=== PATIENT | male | born 1960 | race Caucasian/White ===

== ENCOUNTER 2025-03-19 14:05 | Outpatient (AMB) | payer OTHER, SELFPAY ==
--- NOTE | 2025-03-19 14:12 | A.PHYSOV ---
Vital Signs 03/19/25 14:18 Height 6 ft Weight 180 lb BMI 24.4 Intake Visit Reasons: MRI follow-up Intake Note: Patient is a 64 year old male here for his MRI follow up. 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 The patient has a history of anxiety disorder and claustrophobia, which has been managed for almost 25 years. The patient experienced a traumatic MRI experience due to claustrophobia, leading to panic attacks and bruising from attempting to escape the machine. The patient reports a disc bulge at L5-S1 causing compression of the left S1 nerve root, although the pain is predominantly on the right side. The patient describes the pain as stabbing, sometimes radiating to the testicles, and notes that physical therapy has exacerbated the symptoms. The patient also reports groin pain, which may be related to hip arthritis, as suggested by previous imaging showing some arthritis in the hip. The patient has been using a cane due to the severity of the pain and has experienced nausea associated with the pain. Patient has failed conservative treatment. It appears to me that most of his pain coming from his right hip joint. Pain Description - Onset: Pain has been ongoing, exacerbated by physical therapy. - Quality: Described as stabbing pain, sometimes radiating to the testicles. - Location: Right-sided leg pain and groin pain. - Exacerbating factors: Physical therapy worsens the pain. - Relieving factors: None mentioned. - Interference: Pain is debilitating, requiring the use of a cane and causing nausea. . [facility] Surgical History (Updated 03/19/25 @ 14:17 by Johanny Bonds MA) Deviated nasal septum (Unknown) Hx of tonsillectomy (Unknown) Social History Alcohol intake: current Alcohol intake frequency: does not drink Patient Tobacco Use Status: Never used Tobacco Use of substances other than those prescribed or required for medical reasons: No Current occupational status: employed Review of Systems Narrative Review of Systems - Musculoskeletal: Reports right-sided leg pain and groin pain. - Neurological: Reports stabbing pain radiating to the testicles. - Psychological: Reports anxiety and claustrophobia. - Gastrointestinal: Reports nausea associated with pain. Physical Exam Exam Exam: Physical Exam Lumbar Spine: Examination of his lumbar spine, there is no visible swelling or deformity. He has tenderness to the right lower lumbar facets. He is otherwise nontender. Full range of motion of lumbar spine. He does have an increase in pain with facet loading. Special Tests: Lhermittes sign was negative Heel Toe walk is normal Left straight leg raise: Negative Right straight leg raise: Negative Special tests Queenie test is negative Ganslen's test is negative SI Joint compression test negative Yue test negative Piriformis stretch is negative Lower Extremities: Full range of motion bilateral lower extremities. He does have an increase in pain with right hip mobility. No calf pain or edema. Neuro: Sensation: Intact to lower extremities bilaterally Strength L2 (Psoas): 5/5 on the left and 5/5 on the right. L3 (Quads): 5/5 on the left and 5/5 on the right. L4 (Ant tibialis): 5/5 on the left and 5/5 on the right. L5 (EHL) 5/5 on the left and 5/5 on the right. S1 (Gastroc): 5/5 on the left and 5/5 on the right. DTR L4: (Patellar) Left 2 Right 2 S1: (Achilles) Left 2 Right 2 Babinski Downgoing No pathologic clonus. No involuntary movement. Vital Signs: BMI result Body Mass Index 24.4 Assessment & Plan Assessment & Plan (1) Lumbar radiculopathy: Code(s): M54.16 - Radiculopathy, lumbar region Category: Medical (2) Lumbar spondylosis: Code(s): M47.816 - Spondylosis without myelopathy or radiculopathy, lumbar region Category: Medical (3) Osteoarthritis of right hip: Code(s): M16.11 - Unilateral primary osteoarthritis, right hip Category: Medical Plan Pain Management - Affect: Pain is causing significant distress and impacting psychological well-being. - Analgesia: Current pain management includes hydrocodone, but the patient reports issues with pharmacy filling prescriptions. - Adverse Effects: Nausea associated with pain. - Activities of Daily Living: Pain is debilitating, requiring the use of a cane. - Aberrant Drug Related Behaviors: None reported. Plan Patient was informed and verbally consented to the use of an ambient scribe for clinic note documentation during this visit. 1. Disc Bulge At L5-S1 The plan for the disc bulge at L5-S1 includes considering an epidural injection to decrease inflammation around the nerve root, which may alleviate the leg pain. Surgical intervention is not recommended as it would not address the right-sided leg pain. 2. Groin Pain The plan for groin pain involves considering an injection in the hip to determine if the pain is originating from the hip joint. This procedure would be both diagnostic and therapeutic, potentially confirming hip arthritis as the source of pain. Patient consents to intra-articular injection of the right hip with sedation which I will order today. He has failed conservative treatment. Patient reports only receiving half of the prescription given to him by his pharmacy for [place]. He does report that your medication was helpful. I will prescribe the [place] at this time. Patient will not operate any heavy machinery while taking the medication. Thank you for allowing me to participate in the care of your patient. Orders: Referrals Physiatry Procedure Notification M16.11 - Unilateral primary osteoarthritis, right hip Medications: New hydrocodone-acetaminophen 5-325 mg Partial Fill upon patient request. 1 tab PO Q6H PRN 28 tabs 0RF pain M16.11 - Unilateral primary osteoarthritis, right hip, M54.16 - Radiculopathy, lumbar region Coding Level of Care Code Tele New Pt Level 4 (41619) Diagnoses Lumbar radiculopathy M54.16 Lumbar spondylosis M47.816 Osteoarthritis of right hip M16.11
[2025-03-19 14:18] VITALS: BMI 24.4
--- OUTSIDE RECORDS SUMMARY | 2025-03-19 19:28 | XMS_ITS | Clinical Summary ---
Author Organization [facility] Address [facility] [employer] [facility] [address] [place] [id number] Phone Care Team Providers Care Mold Inspector Name Role Phone David Cisse MD Primary Care Provider [phone] Encounters Date Type Department Care Team Description 01/21/2025 Telephone [facility] [address] [place] [address] Unknown, Unknown, bridge visit from Last 3 Months Social History Tobacco Use Types Packs/Day Years Used Date Smoking Tobacco: Never Assessed Education Answer Date Recorded Are you interested in more education? Not on alaina e 08/26/2022 Are you concerned about learning? Not on file 08/26/2022 No 08/26/2022 No 08/26/2022 Digital Access Answer Date Recorded No 09/24/2022 No 09/24/2022 No 09/24/2022 Reliable internet access at home? Not on file 09/24/2022 Device with a working camera? Not on file Sex and Gender Information Value Date Recorded Sex Assigned at Not on file Legal Sex Male 4:58 PM EST Gender Identity Not on file Sexual Orientation Not on file Plan of Treatment Upcoming Encounters Date Type Department Care Team ([facility] st Contact Info) Description 09/11/2025 8:00 AM EDT Office Visit [facility] [address] [place] [address] Richard Manzanares MD [address] [facility], [address] [place] [address] [email or web address] Maintenance Due Date Last Done Comments LIPID PANEL 1961 DEPRESSION SCREENING 1973 SMOKING Hx and SMOKELESS TOBACCO SCREENING 1974 HEPATITIS C SCREENING 1979 HIV ONE-TIME SCREENING (18-65 YEARS) 1979 COLOGUARD 2006 FIT TEST 2006 FOBT 2006 SIGMOIDOSCOPY 2006 VIRTUAL COLONOSCOPY 2006 PNEUMOCOCCAL VACCINES (50+ years) (1 of 1 - PCV) 2011 Adult Td,Tdap Booster 07/29/2022 07/29/2012 INFLUENZA VACCINE (#1) 2024 , 12/13/2018, 12/21/2017, Additional history exists COVID-19 VACCINE ( season) 2024 08/13/2020, 07/23/2020 COLONOSCOPY 07/10/2028 07/10/2018 COLORECTAL CANCER SCREENING 07/10/2028 RSV VACCINE (1 - 1-dose 75+ series) 2036 ZOSTER VACCINES Completed 12/20/2017, 09/06/2017 HEPATITIS A VACCINES Aged Out No long er eligible based on patient's age to complete this topic HIB VACCINES Aged Out No longer eligi ble based on patient's age to complete this topic MENINGOCOCCAL VACCINES (ACWY) Aged Out No longer eligible based on patient's age to complete this topic MENINGOCOCCAL VACCINES (B) Aged Out N o longer eligible based on patient's age to complete this topic Medical Devices Not on file Procedures Procedure Name Priority Date/Time Associated Diagnosis Comments COLONOSCOPY FOR RESULT ENTRY ONLY Routine 07/10/2018 from Last 3 Months or Most Recently Relevant to Health Maintenance Results * COLONOSCOPY FOR RESULT ENTRY ONLY (07/10/2018) Colonoscopy External us Historical Provider HEALTH MAINTENANCE Final Result from Last 3 Months or Most Recently Relevant to Health Maintenance Insurance [address] [place], [place] [address] [place], [place] [address] [place] [address] [place] [address] [place] [address] [facility] [address] [place] [address] [place] [address] [facility] P[facility] [employer] Care Teams Mold Inspector Relationship Specialty Start Date End Date David Cisse MD [address] [place] [phone] PCP - General Internal Medicine 02/17/20 Additional Source Comments The information contained in this document represents components of the legal health record. It is not the complete legal health record.[facility]
--- OUTSIDE RECORDS SUMMARY | 2025-03-19 19:28 | XMS_ITS | Continuity of Care Document ---
Author Organization [facility], Main Office Address [address] [facility] [address] [place] [address] Care Team Providers Care Supervisor Rose Grading Name Role Phone GUME ESTRADA Material Damage Appraiser MARIANNE SHER Psychiatrist LUDWIN COLVIN Converter Operator GARY HERRERA Primary Care Provider [facility] Acoustic Intelligence Specialist LESLIE MCINTYRE Assistant Director Of Public Works [facility] Physical Therapist Assessment No assessment recorded. Plan of Treatment Reminders Order Date Submit Date Provider Last Modified By Organization Details Last Modified Time Details Appointments None recorded. Lab TSH + free T4, serum 2024 025 ALEXIS [facility] (Centralized Electronic Ordering - All Locations), Patient Can Go To The Location Of Their Choice, 10:06:16 thyroglobul in Ab, serum 2024 025 ALEXIS [facility] (Centralized Electronic Ordering - All Locations), Patient Can Go To The Location Of Their Choice, 10:06:17 PSA, serum or plasma 2024 025 ALEXIS [facility] (Centralized Electronic Ordering - All Locations), Patient Can Go To The Location Of Their Choice, 10:06:17 lipid panel, serum 2024 025 ALEXIS [facility], [address], [address], [place], [address], 5 08:07:54 CBC w/ auto diff 2024 025 ALEXIS [facility], [address], [address], [place], [address], 5 08:07:53 CMP, serum or plasma 2024 025 ALEXIS [facility], [address], [address], [place], [address], 5 08:07:53 Referral None recorded. Procedures None recorded. Surgeries None recorded. Imaging None recorded. Medication Orders None recorded. Patient TargetsNo targets recorded. Patient Instructions Encounter Date Encounter Id Patient Instructions Last Modified By Organization Details Last Modified Time 01/06/2025 [id number] Well Visit 50 to 65: Care Instructions [email or web address] Not available 01/06/2025 14:03:37 Reason for Referral None Reported. Results Created Date Observation Date Name Description Value Unit Range Abnormal Flag Note LastModifiedBy Organization Detail LastModifiedTime 01/07/2001/07/2025 CMP14 (REFL EX HGB A1C) glucose 96 mg/dL 70-99 normal Not Available [facility] ([facility]) [address] [place], [address], 01/07/2025 08:07:52 01/07/2001/07/2025 CMP14 (REFL EX HGB A1C) BUN 11 mg/dL 8-27 normal Not Available [facility] ([facility]) [address] [place], [address], 01/07/2025 08:07:52 01/07/2001/07/2025 CMP14 (REFL EX HGB A1C) creatinine 0.87 mg/dL 0.76-1 .27 normal Not Available [facility] ([facility]) [address] [place], [address], 01/07/2025 08:07:52 01/07/2001/07/2025 CMP14 (REFL EX HGB A1C) eGFR 97 mL/mi n/1.7 3 >59 normal Not Available [facility] ([facility]) [address] [place], [address], 01/07/2025 08:07:52 01/07/2001/07/2025 CMP14 (REFL EX HGB A1C) BUN/creatini ne ratio 13 10-24 normal Not Available [facility] ([facility] [address] [place], [address], 01/07/2025 08:07:52 01/07/2001/07/2025 CMP14 (REFL EX HGB A1C) sodium 141 mmol/ L 134-14 4 normal Not Available [facility] ([facility]) [address] [place], [address], 01/07/2025 08:07:52 01/07/2001/07/2025 CMP14 (REFL EX HGB A1C) potassium 4.6 mmol/ L 3.5-5. 2 normal Not Available [facility] ([facility] [address] [place], [address], 01/07/2025 08:07:52 01/07/2001/07/2025 CMP14 (REFL EX HGB A1C) chloride 101 mmol/ L 96-106 normal Not Available [facility] ([facility] [address] [place], [address], 01/07/2025 08:07:52 01/07/2001/07/2025 CMP14 (REFL EX HGB A1C) carbon dioxide, total 23 mmol/ L 20-29 normal Not Available [facility] ([facility] [address] [place], [address], 01/07/2025 08:07:52 01/07/2001/07/2025 CMP14 (REFL EX HGB A1C) calcium 9.5 mg/dL 8.6-10 .2 normal Not Available [facility] ([facility]) [address] [place], [address], 01/07/2025 08:07:52 01/07/2001/07/2025 CMP14 (REFL EX HGB A1C) protein, total 7.5 g/dL 6.0-8. 5 normal Not Available [facility] ([facility]) [address] [place], [address], 01/07/2025 08:07:52 01/07/2001/07/2025 CMP14 (REFL EX HGB A1C) albumin 4.6 g/dL 3.9-4. 9 normal Not Available [facility] ([facility] [address] [place], [address], 01/07/2025 08:07:52 01/07/2001/07/2025 CMP14 (REFL EX HGB A1C) globulin, total 2.9 g/dL 1.5-4. 5 Not Available [facility] ([facility] [address] [place], [address], 01/07/2025 08:07:52 01/07/2001/07/2025 CMP14 (REFL EX HGB A1C) bilirubin, total 0.6 mg/dL 0.0-1. 2 normal Not Available [facility] ([facility] [address] [place], [address], 01/07/2025 08:07:52 01/07/2001/07/2025 CMP14 (REFL EX HGB A1C) alkaline phosphatase 76 IU/L 44-121 normal Eff ectiv e Septe mber 2024 Alkal ine Phosp hatas e refer ence inter marvel will be frederick ing to: Age Male Femal e 0 - 5 days 47 - 127 47 - 127 6 - 10 days 29 - 242 29 - 242 11 - 20 days 109 - 357 109 - 357 21 - 30 days 94 - 494 94 - 494 1 - 2 month s 149 - 539 149 - 539 3 - 6 month s 131 - 452 131 - 452 7 - 11 month s 117 - 401 117 - 401 12 month s - 6 years 158 - 369 158 - 369 7 - 12 years 150 - 409 150 - 409 13 years 156 - 435 78 - 227 14 years 114 - 375 64 - 161 15 years 88 - 279 56 - 134 16 years 74 - 207 51 - 121 17 years 63 - 161 47 - 113 18 - 20 years 51 - 125 42 - 106 21 - 50 years 47 - 123 41 - 116 51 - 80 years 49 - 135 51 - 125 >80 years 48 - 129 48 - 129 Not Available [facility] ([facility]) [address] [place], [address], 01/07/2025 08:07:52 01/07/2001/07/2025 CMP14 (REFL EX HGB A1C) AST (SGOT) 18 IU/L 0-40 normal Not Available [facility] ([facility] [address] [place], [address], 01/07/2025 08:07:52 01/07/2001/07/2025 CMP14 (REFL EX HGB A1C) ALT (SGPT) 17 IU/L 0-44 normal Not Available [facility] ([facility] [address] [place], [address], 01/07/2025 08:07:52 01/07/2001/07/2025 CBC WITH DIFFE RENTI AL/PL ATELE T WBC 6.4 x10e3 /uL 3.4-10 .8 normal Not Available [facility] ([facility] [address] [place], [address], 01/07/2025 08:07:53 01/07/2001/07/2025 CBC WITH DIFFE RENTI AL/PL ATELE T RBC 4.83 x10e6 /uL 4.14-5 .80 normal Not Available [facility] ([facility] [address] [place], [address], 01/07/2025 08:07:53 01/07/2001/07/2025 CBC WITH DIFFE RENTI AL/PL ATELE T hemoglobin 14.9 g/dL 13.0-1 7.7 normal Not Available [facility] ([facility] [address] [place], [address], 01/07/2025 08:07:53 01/07/2001/07/2025 CBC WITH DIFFE RENTI AL/PL ATELE T hematocrit 44.7 % 37.5-5 1.0 normal Not Available [facility] ([facility] [address] [place], [address], 01/07/2025 08:07:53 01/07/2001/07/2025 CBC WITH DIFFE RENTI AL/PL ATELE T MCV 93 fL 79-97 normal Not Available [facility] ([facility] [address] [place], [address], 01/07/2025 08:07:53 01/07/2001/07/2025 CBC WITH DIFFE RENTI AL/PL ATELE T MCH 30.8 pg 26.6-3 3.0 normal Not Available [facility] ([facility] [address] [place], [address], 01/07/2025 08:07:53 01/07/2001/07/2025 CBC WITH DIFFE RENTI AL/PL ATELE T MCHC 33.3 g/dL 31.5-3 5.7 normal Not Available [facility] ([facility] [address] [place], [address], 01/07/2025 08:07:53 01/07/2001/07/2025 CBC WITH DIFFE RENTI AL/PL ATELE T RDW 13.1 % 11.6-1 5.4 Not Available [facility] ([facility] [address] [place], [address], 01/07/2025 08:07:53 01/07/20 25 01/07/2025 CBC WITH DIFFE RENTI AL/PL ATELE T platelets 239 x10e3 /uL 150-45 0 normal Not Available [facility] ([facility]) [address] [facility], [place], [address], 01/07/2025 08:07:53 01/07/2001/07/2025 CBC WITH DIFFE RENTI AL/PL ATELE T neutrophils 70 % not estab. normal Not Available [facility] ([facility]) [address] [facility], [place], [address], 01/07/2025 08:07:53 01/07/2001/07/2025 CBC WITH DIFFE RENTI AL/PL ATELE T lymphs 22 % not estab. normal Not Available [facility] ([facility]) [address] [facility], [place], [address], 01/07/2025 08:07:53 01/07/2001/07/2025 CBC WITH DIFFE RENTI AL/PL ATELE T monocytes 7 % not estab. normal Not Available [facility] ([facility]) [address] [facility], [place], [address], 01/07/2025 08:07:53 01/07/2001/07/2025 CBC WITH DIFFE RENTI AL/PL ATELE T eos 1 % not estab. normal Not Available [facility] ([facility]) [address] [facility], [place], [address], 01/07/2025 08:07:53 01/07/20 25 01/07/2025 CBC WITH DIFFE RENTI AL/PL ATELE T basos 0 % not estab. normal Not Available [facility] ([facility]) [address] [facility], [place], [address], 01/07/2025 08:07:53 01/07/20 25 01/07/2025 CBC WITH DIFFE RENTI AL/PL ATELE T immature cells SENIOR ELECTRICAL ESTIMATOR Not Available [facility] ([facility] [address] [place], [address], 01/07/2025 08:07:53 01/07/2001/07/2025 CBC WITH DIFFE RENTI AL/PL ATELE T neutrophils (absolute) 4.5 x10e3 /uL 1.4-7. 0 normal Not Available [facility] ([facility] [address] [place], [address], 01/07/2025 08:07:53 01/07/2001/07/2025 CBC WITH DIFFE RENTI AL/PL ATELE T lymphs (absolute) 1.4 x10e3 /uL 0.7-3. 1 normal Not Available [facility] ([facility] [address] [place], [address], 01/07/2025 08:07:53 01/07/2001/07/2025 CBC WITH DIFFE RENTI AL/PL ATELE T monocytes(ab solute) 0.5 x10e3 /uL 0.1-0. 9 normal Not Available [facility] ([facility] [address] [place], [address], 01/07/2025 08:07:53 01/07/2001/07/2025 CBC WITH DIFFE RENTI AL/PL ATELE T eos (absolute) 0.1 x10e3 /uL 0.0-0. 4 normal Not Available [facility] ([facility] [address] [place], [address], 01/07/2025 08:07:53 01/07/2001/07/2025 CBC WITH DIFFE RENTI AL/PL ATELE T baso (absolute) 0.0 x10e3 /uL 0.0-0. 2 normal Not Available [facility] ([facility] [address] [place], [address], 01/07/2025 08:07:53 01/07/20 25 01/07/2025 CBC WITH DIFFE RENTI AL/PL ATELE T immature granulocytes 0 % not estab. Not Available [facility] ([facility]) [address] [facility], [place], [address], 01/07/2025 08:07:53 01/07/20 25 01/07/2025 CBC WITH DIFFE RENTI AL/PL ATELE T immature grans (abs) 0.0 x10e3 /uL 0.0-0. 1 Not Available [facility] ([facility]) [address] [facility], [place], [address], 01/07/2025 08:07:53 01/07/20 25 01/07/2025 CBC WITH DIFFE RENTI AL/PL ATELE T NRBC SENIOR ELECTRICAL ESTIMATOR Not Available [facility] ([facility]) [address] [facility], [place], [address], 01/07/2025 08:07:53 01/07/2001/07/2025 CBC WITH DIFFE RENTI AL/PL ATELE T hematology comments: SENIOR ELECTRICAL ESTIMATOR Not Available [facility]) [address] [facility], [place], [address], 01/07/2025 08:07:53 01/07/20 25 01/07/2025 LIPID PANEL cholesterol, total 205 mg/dL 100-19 9 above high normal Not Available [facility] ([facility]) [address] [place], [address], 01/07/2025 08:07:54 01/07/20 25 01/07/2025 LIPID PANEL triglyceride s 101 mg/dL 0-149 normal Not Available [facility] [address] [place], [address], 01/07/2025 08:07:54 01/07/20 25 01/07/2025 LIPID PANEL HDL cholesterol 41 mg/dL >39 normal Not Available [facility] [address] [place], [address], 01/07/2025 08:07:54 01/07/2001/07/2025 LIPID PANEL VLDL cholesterol hayley 18 mg/dL 5-40 Not Available [facility] ([facility] [address] [place], [address], 01/07/2025 08:07:54 01/07/20 25 01/07/2025 LIPID PANEL LDL chol calc ([facility]) 146 mg/dL 0-99 above high normal Not Available [facility] ([facility] [address] [place], [address], 01/07/2025 08:07:54 01/07/20 25 01/07/2025 LIPID PANEL LDL calc comment: SENIOR ELECTRICAL ESTIMATOR Not Available [facility] [address] [place], [address], 01/07/2025 08:07:54 01/07/2001/07/2025 TSH+F REE T4 TSH 5.520 uIU/m L 0.450- 4.500 above high normal Not Available [facility] ([facility] [address] [place], [address], 01/07/2025 10:06:16 01/07/2001/07/2025 TSH+F REE T4 T4,free(dire ct) 1.01 NG/dL 0.82-1 .77 normal Not Available [facility] ([facility] [address] [place], [address], 01/07/2025 10:06:16 01/07/2001/06/2025 PSA TOTAL (REFL EX TO FREE) reflex criteria Commen t The perce nt free PSA is perfo rmed on a refle x basis only when the total PSA is betwe en 4.0 and 10.0 ng/mL . Not Available [facility] ([facility]) [address] [place], [address], 01/07/2025 10:06:17 01/07/2001/07/2025 PSA TOTAL (REFL EX TO FREE) prostate specific Ag 1.2 NG/mL 0.0-4. 0 normal Padmaja ECLIA metho dolog y. Accor ding to the Ameri can Urolo gical Assoc iatio n, Serum PSA shoul d decre ase and remai n at undet ectab le level s after radic al prost atect moisés. The AUA defin es bioch emica l recur rence as an initi al PSA value 0.2 ng/mL or great er follo wed by a subse quent confi rmato ry PSA value 0.2 ng/mL or great er. Value s obtai eunice with diffe rent assay metho ds or kits canno t be used inter frederick eably . Resul ts canno t be inter prete d as absol angel luis evide nce of the prese nce or absen ce of malig nant disea se. Not Available [facility] ([facility]) [address] [facility], [place], [address], 01/07/2025 10:06:17 01/07/2001/07/2025 THYRO GLOBU SUNDEEP ANTIB FINESSE thyroglobuli n antibody 55.3 IU/mL 0.0-0. 9 above high normal Thyro globu sundeep Antib finesse measu red by Beckm an Coult er Metho dolog y It shoul d be noted that the prese nce of thyro globu sundeep antib odies may not be patho genic nor diagn ostic , espec ially at very low level s. The assay manuf actur er has found that four perce nt of indiv idual s witho ut evide nce of thyro id disea se or autoi mmuni ty will have posit javier TgAb level s up to 4 IU/mL . Not Available [facility] ([facility]) [address] [facility], [place], [address], 01/07/2025 10:06:17 01/07/2001/08/2025 THYRO ID PEROX IDASE (TPO) AB thyroid peroxidase (tpo) Ab >600 IU/mL 0-34 above high normal Not Available [facility] ([facility]) [address] [facility], [place], [address], 01/08/2025 08:07:57 01/07/2001/07/2025 MUKUL EN AUTHO RIZAT ION written authorizatio n Dioni King en Autho rizat ion Recei jero. Autho rizat ion recei jero from [facility] MICHELLE HERRERA for Link Reque st on 01-07 Logge d by Roderick Bunch Not Available [facility] ([facility] [address] [facility], [place], [address], 01/08/2025 08:07:57 01/27/2001/25/2025 XR, hip, unila teral , 2 or 3 view AP and frog-l eg latera l view of the right hip dated 2024. No prior studie s are availa ble. Correl ation is made with a pelvis study from [facility] r 2021. HISTOR Y: Right hip pain. FINDIN GS: This examin ation shows no eviden ce of fractu re or disloc ation. There is some subcho ndral sclero sis in the hip joint. Minima l osteop hytes are noted as well. IMPRES BRAD: Mild degene rative change s. No eviden ce of fractu re or disloc ation. Examin ation [id number]. Thank you for allowi ng me to partic ipate in the care of this patien t. WSN: [id number] Orderi ng Physic portia: Jimmy Jordan Dictat ed By: Christian Rodriguez MD Dictat ed Date/T ivania: 4:40 pm Review ed By: Christian Rodriguez MD Signed By: Christian Rodriguez MD Signed Date/T ivania: 4:40 pm Transc ribed By: GORDY Transc ribed Date/T ivania: 4:40 pm Patien t Class: Outpat ient [facility] ([facility]) [address] [place], [address], 01/26/2025 19:11:52 01/27/20 25 01/25/2025 XR, lumba r spine Lumbos acral spine 3 views dated Sept2024. No prior studie s are availa ble. HISTOR Y: Pain. FINDIN GS: The verteb ral bodies are normal in height . Interv ertebr al disc spaces are fairly well-p reserv ed. Minima l endpla te osteop hytes are noted. IMPRES BRAD: Minima l degene rative change s. No eviden ce of fractu re or disloc ation. Examin ation [id number]. Thank you for mckenna portillo me to partic ipate in the care of this patien t. WSN: [id number] Orderi ng Physic portia: Jimmy Jordan Dictat ed By: Christian Rodriguez MD Dictat ed Date/T ivania: 4:41 pm Review ed By: Christian Rodriguez MD Signed By: Christian Rodriguez MD Signed Date/T ivania: 4:41 pm Transc ribed By: GORDY Transc ribed Date/T ivania: 4:41 pm Patien t Class: Outpat ient [facility] ([facility]) [address] [place], [address], 01/26/2025 19:11:52 Result Notes None recorded. Problems Name Problem SNOMED Code Status Onset Date Resolution Date Notes Provider Name and Address Organization Details Recorded Time Anxiety state 798396767 Active Not Available [facility] 2 12:56:36 Patient status finding 438060997 Completed 04/03/2016 [place] Velazquez [place] - [facility] 6 09:38:58 Congenit al insuffic iency of aortic valve 49616537 Active Not Available [facility] 2 12:56:36 Screenin g for malignan t neoplasm of colon Completed 04/03/2016 [place]WAK[place] Velazquez [facility] 6 09:39:07 Follow-u p encounte r Completed 04/03/2016 KWAK[place] Velazquez [facility] 6 09:39:11 Malaise and fatigue 941783385 Completed 04/03/2016 KWAK[place] Velazquez [facility] 6 09:39:04 Hyperlip idemia 18177935 Active Not Available [facility] 2 12:56:36 Irritabl e bowel syndrome 63366462 Completed 04/25/2023 Gary Herrera MD [address] [address], [place], [address] , [facility] 3 11:24:49 Major depressi on single episode, in partial remissio n 19789343 Active Not Available [facility] 2 12:56:36 Adult health examinat ion Completed 04/03/2016 KWAK[place] Velazquez [facility] 6 09:39:01 Administ ration of diphther ia and tetanus vaccine Completed 02/19/2017 KWAKU Velazquez[facility] 7 13:33:57 Low back pain 632046570 Completed 02/21/2022 Gary Herrera MD [address] [address], [place], [address] , [facility] 2 11:35:32 Tinea corporis 77469916 Completed 02/21/2022 Gary Herrera MD [address] [address], [place], [address] , [facility] 2 11:35:53 Lower abdomina l pain 93324154 Completed 02/19/2017 KWAKU Velazquez [facility] 7 13:33:48 Disorder of lumbar disc 724459891 Active Not Available [facility] 2 12:56:36 Tinnitus 18846708 Completed 04/03/2016 KWAKU Velazquez, [facility] 6 09:39:20 Cyst of epididym is 66239071 Completed 04/26/2018 David Cisse MD [address], [place], [address] , [facility] 8 11:47:37 Swallowi ng painful 36935788 Completed 04/03/2016 KWAKU Velazquez, [facility] 6 09:39:15 Fatigue 26649422 Completed 04/03/2016 KWAKU Velazquez, [facility] 6 09:39:25 Bilatera l trochant jon bursitis 90991619888 363731 Active KWAKU Velazquez, [facility] 5 14:07:34 Interver tebral disc prolapse 23098466 Active L5-S1 KWAKU Velazquez, [facility] 5 14:12:52 Anemia 912416843 Completed 201211/11/2013 RECORDED 06/19/19 13 9:14AM BY WASHINGTON BARNETT MA, ANNOTATI ON/ADDEN DUM Not Available [facility] 4 14:39:31 Anxiety state 589720108 Completed 201211/11/2013 IMPRESSI ON: FOLLOWED BY PSYCH; RECORDED 06/19/19 13 9:14AM BY WASHINGTON BARNETT MA, ANNOTATI ON/ADDEN DUM Not Available [facility] 4 14:39:31 Congenit al insuffic iency of aortic valve 16907313 Completed 201211/11/2013 RECORDED 06/19/19 13 9:14AM BY WASHINGTON BARNETT MA, ANNOTATI ON/ADDEN DUM Not Available [facility] 4 14:39:32 Pneumoni a 298772398 Completed 201211/11/2013 RECORDED 06/19/19 13 9:14AM BY WASHINGTON BARNETT MA, ANNOTATI ON/ADDEN DUM Not Available [facility] 4 14:39:32 Irritabl e bowel syndrome 56270609 Completed 201211/11/2013 RECORDED 06/19/19 13 9:14AM BY WASHINGTON BARNETT MA, ANNOTATI ON/ADDEN DUM Gary Herrera MD [address] [facility] [address], [place], [address] , [facility] 3 11:24:49 Lateral epicondy litis 610447474 Completed 201211/11/2013 RECORDED 06/19/19 13 9:14AM BY WASHINGTON BARNETT MA, ANNOTATI ON/ADDEN DUM Not Available [facility] 4 14:39:32 Adult health examinat ion Completed 201211/11/2013 RECORDED 06/19/19 13 9:14AM BY WASHINGTON BARNETT MA, ANNOTATI ON/ADDEN DUM Minerva porter [place] [facility] 6 09:39:01 Anemia 955318813 Completed 201212/04/2013 RECORDED 06/19/19 13 9:14AM BY WASHINGTON BARNETT MA, ANNOTATI ON/ADDEN DUM Not Available [facility] 4 12:53:34 Pneumoni a 425331292 Completed 201212/04/2013 RECORDED 06/19/19 13 9:14AM BY WASHINGTON BARNETT MA, ANNOTATI ON/ADDEN DUM Not Available [facility] 4 12:53:35 Lateral epicondy litis 315230834 Completed 201212/04/2013 RECORDED 06/19/19 13 9:14AM BY WASHINGTON BARNETT MA, ANNOTATI ON/ADDEN DUM Not Available [facility] 4 12:53:35 Anemia 505270800 Completed 201212/05/2013 RECORDED 06/19/19 13 9:14AM BY WASHINGTON BARNETT MA, ANNOTATI ON/ADDEN DUM Not Available [facility] 4 03:48:35 Pneumoni a 505793855 Completed 201212/05/2013 RECORDED 06/19/19 13 9:14AM BY WASHINGTON BARNETT MA, ANNOTATI ON/ADDEN DUM Not Available [facility] 4 03:48:35 Lateral epicondy litis 309445585 Completed 201212/05/2013 RECORDED 06/19/19 13 9:14AM BY WASHINGTON BARNETT MA, ANNOTATI ON/ADDEN DUM Not Available [facility] 4 03:48:35 Acute upper respirat ory infectio n 24511736 Completed 201211/11/2013 IMPRESSI ON: LUNGS CLEAR TODAY AND AFEBRILE , RECOMMEN D SUPPORTI VE TX, WILL CALL BACK FOR CXR IF NOT IMPROVIN G OR WORSENIN G.; RECORDED 07/30/19 13 12:56PM BY MINERVA GUERRERO MA, ANNOTATI ON/ADDEN DUM Not Available [facility] 4 14:39:33 Acute upper respirat ory infectio n 38838364 Completed 201212/04/2013 IMPRESSI ON: LUNGS CLEAR TODAY AND AFEBRILE , RECOMMEN D SUPPORTI VE TX, WILL CALL BACK FOR CXR IF NOT IMPROVIN G OR WORSENIN G.; RECORDED 07/30/19 13 12:56PM BY MINERVA GUERRERO MA, ANNOTATI ON/ADDEN DUM Not Available [facility] 4 12:53:35 Acute upper respirat ory infectio n 86868003 Completed 201212/05/2013 IMPRESSI ON: LUNGS CLEAR TODAY AND AFEBRILE , RECOMMEN D SUPPORTI VE TX, WILL CALL BACK FOR CXR IF NOT IMPROVIN G OR WORSENIN G.; RECORDED 07/30/19 13 12:56PM BY MINERVA GUERRERO MA, ANNOTATI ON/ADDEN DUM Not Available [facility] 08/08/201 4 03:48:35 Spinal stenosis of lumbosac ral region 619346804 Active 2013 MRI results KWAKU Velazquez, [facility] 5 14:12:25 Subclini hayley hypothyr oidism 28551848 Completed 201704/26/2023 Gary Herrera MD [address], [place], [address] , [facility] 3 22:00:43 Pain of left shoulder joint 97564478058 369862 Completed 201904/25/2023 Gary Herrera MD [address] [facility] [address], [place], [address] , [facility] 3 11:24:52 Decrease d range of shoulder movement 144955087 Active 2019 Not Available [facility] 2 12:56:36 Cervical radiculo kenia 52134992 Completed 202004/25/2023 Gary Herrera MD [address], [place], [address] , [facility] 3 11:23:11 Lichen planus of tongue 126156270 Active 2021 tongue biopsy 09/2021 Not Available [facility] 2 12:56:36 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 97935698590 9105 Active 2021 Alicia patel, [facility] 2 13:26:36 Environm ental allergy 020917089 Active 2022 Rebel Jordan PA-C [address], [place], [address] , [facility] 3 11:51:39 History of actinic keratosi s 36334576414 04 Active 2022 Gary Herrera MD [address], [place], [address] , [facility] 3 22:03:25 Chronic low back pain 923715805 Active 2023 Girish Herrera MD [address] [facility] [address], [place], [address] , [facility] 4 09:14:03 Osteoart hritis of right hip joint 62278144201 9107 Active 2023 [facility] [address] [facility] [address], [place], [address] , [facility] 4 09:51:59 Problem Notes None recorded. Procedures Surgical History Date Name Laterality Status Provider Name and Address Organization Details Recorded Time 05/10/19 23 excision of benign lesion of trunk completed Minerva calderon [facility] 07/03/2022 09:19:53 07/11/19 19 Colonoscopy completed Chinyere Chavez [facility] 07/10/2018 15:39:14 07/07/19 18 Chronic Pain Assessment completed [facility] 07/06/2017 11:45:57 12/23/19 17 Chronic Pain Assessment completed [facility] 12/22/2016 09:36:59 08/18/19 17 Chronic Pain Assessment completed [facility] 08/17/2016 13:37:09 08/12/19 16 Echo Transthoracic completed [facility] 08/14/2015 10:38:23 04/30/18 92 Repair nasal septum defect completed [facility] 06/07/2015 13:33:55 04/30/18 68 Tonsillectomy completed [facility] 09/13/2020 13:06:03 Imaging Results None recorded. Procedure Notes None recorded. Medical Equipment None Reported. Allergies Allergen ID Allergen Name Allergen Category Reaction Reaction Severity Criticality Documentation Date Start Date Code Code System Note Provider Name and Address Organization Details Recorded Time 00164 tramadol medicatio n other Not available Not available 06/16/20142022 16220 RxNorm unabl e to urmanju martinez [facility] 3 09:13:38 2812 Shellfish (substanc e) food,medi cation other respirato ry distress Not available Not available [facility] 11/11/20131994 96669 9006 SNOMED [facility] 3 09:15:13 65399 duloxetin e medicatio n other Not available Not available 01/17/20212022 27914 RxNorm [facility] 3 09:12:46 Medications Name Sig Start Date Stop Date Status Note LastModified by Organization Details LastModified Time methocarb gabriella 500 mg tablet TAKE 2 TABLETS BY MOUTH EVERY 6 HOURS NEEDED FOR 10 DAYS. 01/28 completed Not Available Not Available Not Available buspirone 5 mg tablet Take 1 tablet every day by oral route for 30 days. 04/25 completed take with 10 mg tablet Not Available Not Available Not Available clonidine HCl 0.1 mg tablet TAKE 1 TABLET BY MOUTH TWICE A DAY NEEDED FOR ANXIETY 10/04 completed Not Available Not Available Not Available trazodone 50 mg tablet TAKE 1 TO 2 TABLETS BY MOUTH AT BEDTIME NEEDED FOR SLEEP 05/25 completed Not Available Not Available Not Available hydrocodo ne 5 mg-acetam inophen 325 mg tablet Take 1 tablet every 6 hours by oral route as needed for 15 days. 02/19 completed Not Available Not Available Not Available prednison e 20 mg tablet TAKE 2 TABLETS BY MOUTH EVERY DAY FOR 5 DAYS, FOR RIGHT LOW BACK PAIN. *TAKE WITH FOOD* 01/06 completed Not Available Not Available Not Available hydrocodo ne 10 mg-acetam inophen 325 mg tablet TAKE 1 TABLET BY MOUTH 4 TIMES A DAY FOR 7 DAYS. 01/17 completed Not Available Not Available Not Available tramadol 50 mg tablet Take 1 tablet 4 times a day by oral route as needed for pain for 30 days. 2013 active Not Available Not Available Not Avai lable bupropion HCl SR 100 mg tablet,12 hr sustained -release 02/21 completed Not Available Not Available Not Available lamotrigi ne 25 mg tablet TAKE 2 TABLETS BY MOUTH EVERY DAY 03/17 completed Not Available Not Available Not Available propranol ol 10 mg tablet TAKE 1 TO 2 TABLETS BY MOUTH 2 TIMES A DAY FOR PHYSICAL ANXIETY 01/06 completed Not Available Not Available Not Available lorazepam 0.5 mg tablet PLEASE SEE ATTACHED FOR DETAILED DIRECTIO NS active Not Available Not Available No t Available lorazepam 2 mg tablet TAKE 2 TABLETS BY MOUTH EVERYDAY AT BEDTIME. MAX TOTAL DAILY DOSE OF 6MG OF LORAZEPA M active Not Available Not Available No t Available diazepam 2 mg tablet TAKE 1 TO 2 TABLETS BY MOUTH EVERY DAY NEEDED 02/14 completed Not Available Not Available Not Available cephalexi n 500 mg capsule TAKE 1 CAPSULE BY MOUTH EVERY 8 HOURS FOR 5 DAYS 07/03 completed Not Available Not Available Not Available nortripty line 10 mg capsule 04/26 completed Not Available Not Available Not Available buspirone 30 mg tablet TAKE 1 TABLET BY MOUTH DAILY. active Not Available Not Available No t Available buspirone 10 mg tablet TAKE 1 TABLET BY MOUTH EVERY DAY WITH 15MG TAB active Not Available Not Available No t Available prednison e 50 mg tablet Take 1 tablet every day by oral route for 5 days. 04/03 completed Not Available Not Available Not Available Lorazepam Intensol 2 mg/mL oral concentra te TAKE 1ML BY MOUTH DAILY, DECREASE BY 0.1ML BIWEEKLY TOLERATE D 04/25 completed Not Available Not Available Not Available gabapenti n 300 mg capsule TAKE 1 CAPSULE IN THE MORNING AND 2 CAPSULES AT BEDTIME 02/14 completed Not Available Not Available Not Available sertralin e 25 mg tablet TAKE 1 AND 1/2 TABLETS BY MOUTH DAILY 02/21 completed Not Available Not Available Not Available omeprazol e 20 mg capsule,d elayed release Take 1 capsule every day by oral route. 12/06 completed Not Available Not Available Not Available hydroxyzi ne HCl 25 mg tablet PLEASE SEE ATTACHED FOR DETAILED DIRECTIO NS 02/01 completed Not Available Not Available Not Available gabapenti n 100 mg capsule TAKE 1-2 CAPSULES BY MOUTH NEEDED 1-2 TIMES PER DAY FOR SEVERE ANXIETY 02/14 completed Not Available Not Available Not Available Diazepam Intensol 5 mg/mL oral concentra te TAKE 1.4ML BY MOUTH (7MG) AT BEDTIME. 02/14 completed Not Available Not Available Not Available lorazepam 1 mg tablet TAKE 1/2 TO 1 TAB NEEDED 2 TIMES DAILY FOR ANXIETY. AWARE OF 4MG BEDTIME. DOSE INCREASE 09/11/24 active Not Available Not Available No t Available diazepam 10 mg tablet TAKE 1-2 TABLETS BY MOUTH AT BEDTIME. STOP BEDTIME ATIVAN. 01/06 completed Not Available Not Available Not Available epinephri ne 0.3 mg/0.3 mL injection , auto-inje ctor INJECT 1 SYRINGE (0.3 MG TOTAL) INTO THE OUTER THIGH MUSCLE DIRECTED NEEDED FOR ANAPHYLA XIS. active Not Available Not Available No t Available levofloxa ruth 500 mg tablet DAILY 07/14 completed RECORDED 07/26/19 12 1:22PM BY GUME VOSS PA-C, MEDICATI ON AUTO-MANJU CTIVATIO N; Not Available Not Available Not Available methylpre dnisolone 4 mg tablets in a dose pack TAKE 6 TABLETS ON DAY 1 DIRECTED ON PACKAGE AND DECREASE BY 1 TAB EACH DAY FOR A TOTAL OF 6 DAYS active Not Available Not Available No t Available clotrimaz ole 1 % topical cream APPLY TO THE AFFECTED AND SURROUND ING AREAS OF SKIN BY TOPICAL ROUTE 2 TIMES PER DAY IN THE MORNING AND EVENING 2013 active Not Available Not Available Not Avai lable sertralin e 50 mg tablet TAKE 1 TABLET BY MOUTH EVERY DAY active Not Available Not Available No t Available loratadin e 10 mg tablet TAKE 1 TABLET BY MOUTH ONCE A DAY 04/25 completed Not Available Not Available Not Available buspirone 15 mg tablet TAKE 1 TABLET BY MOUTH EVERY DAY WITH 10MG 01/06 completed Not Available Not Available Not Available escitalop floridalma 5 mg/5 mL oral solution TAKE 4 ML BY MOUTH ONCE A DAY 02/21 completed Not Available Not Available Not Available rosuvasta tin 10 mg tablet TAKE 1 TABLET BY MOUTH EVERYDAY AT BEDTIME active Not Available Not Available No t Available bupropion HCl XL 150 mg 24 hr tablet, extended release 02/21 completed Not Available Not Available Not Available escitalop floridalma 5 mg tablet TAKE 1 TABLET BY MOUTH EVERY DAY 02/21 completed Not Available Not Available Not Available mirtazapi ne 7.5 mg tablet TAKE 1 TABLET BY MOUTH AT BEDTIME 01/17 completed Not Available Not Available Not Available duloxetin e 20 mg capsule,d elayed release TAKE 1 CAPSULE BY MOUTH EVERY DAY 02/21 completed Not Available Not Available Not Available Guiatuss AT BEDTIME 06/26 completed RECORDED 07/30/19 13 12:56PM BY GUME VOSS PA-C, MEDICATI ON AUTO-MANJU CTIVATIO N; Not Available Not Available Not Available sodium fluoride 1.1 %-potassi um nitrate 5 % dental paste USE PEA SIZE AMOUNT 1-2 TIMES A DAY.WAIT 30MINS BEFORE EATING/D RINKING 02/14 completed Not Available Not Available Not Available ProAir HFA 90 mcg/actua tion aerosol inhaler Inhale 2 puffs every 4 hours by inhalati on route as needed. 09/07 completed Not Available Not Available Not Available aripipraz ole 2 mg tablet TAKE 1 TABLET BY MOUTH EVERY DAY 02/21 completed Not Available Not Available Not Available cholecalc iferol (vitamin D3) 50 mcg (2,000 unit) capsule TAKE 1 CAPSULE BY MOUTH EVERY DAY 01/06 completed Not Available Not Available Not Available Shingrix (PF) 50 mcg/0.5 mL intramusc ular suspensio n, kit 04/26 completed Not Available Not Available Not Available Fluzone Quad (P F) 60 mcg(15 mcgx4)/0. 5 mL intramusc ular syringe 04/26 completed Not Available Not Available Not Available Afluria Qd 2018- (36 mos up)(PF)60 mcg (15 mcg x4)/0.5 mL IM syringe 08/12 completed Not Available Not Available Not Available Fluzone Quad (PF) 60 mcg (15 mcg x 4)/0.5 mL IM syringe TO BE ADMINIST ERED BY PHARMACI ST FOR IMMUNIZA TION 06/07 completed Not Available Not Available Not Available Vitals Date Recorded Body height Body mass index (BMI) Body weight Heart rate Oxygen saturation Body temperature Systolic And Diastolic Provider Name and Address Organization Details Last Updated DateTime 5 183.01 cm 24.9 kg/m2 35061 g 90 /min 98 % 98.2 [degF] 107/63 mm[Hg] [facility] 5 13:38:53 Social History Question Answer Notes LastModified by Organizat ion Details LastModified Time Tobacco Smoking Status [facility] 13:05:45 Do You Have An Advance Directive? Yes [email or web address] Information not available 03/17/2022 Is Blood Transfusion Acceptable In An Emergency? Yes Information not available 07/27/2015 What Is Your Level Of Caffeine Consumption? Occasional Decaf Coffee Information not available 01/17/2021 How Much Tobacco Do You Chew? None Information not available 06/07/2015 What Type Of Diet Are You Following? REGULAR Information not available 06/07/2015 Which Illicit Or Recreational Drugs Have You Used? None Information not available 06/07/2015 When Did You Quit Smoking? 16+yearssince [email or web address] Information not available 09/13/2020 Live Alone Or With Others? With Others (Robert) And Obgddh-vt-hd w, Brother Brant And Brinater [email or web address] Information not available 04/25/2023 Do You Take Precautions To Prevent Distracted Driving? Yes Information not available 07/27/2015 How Often Do You Need To Have Someone Help You When You Read Instructions, Pamphlets, Or Other Written Material From Your Doctor Or Pharmacy? Never Information not available 06/07/2015 Have You Served In The ? No Information not available 04/03/2016 Have You Or Anyone In Your Household Had Any Of The Following Symptoms In The Last 14 Days: Sore Throat, Cough, Chills, Body Aches For Unknown Reasons, Shortness Of Breath For Unknown Reasons, Loss Of Smell, Loss Of Taste, Fever At Or Greater Than 100 Degrees Fahrenheit? No [email or web address] Information not available 11/24/2019 Are You Or Anyone In Your Household A Health Care Provider Or Emergency Responder? No [email or web address] Information not available 11/24/2019 To The Best Of Your Knowledge Have You Been In Close Proximity To Any Individual Who Tested Positive For COVID-19? No [email or web address] Information not available 11/24/2019 Have You Recently Traveled To A COVID-19 High Risk Area Or Gathering In The Last 10 Days? No [email or web address] Information not available 09/13/2020 What Was The Date Of Your Most Recent Tobacco Screening? 01/06/2025 Information not available 01/06/2025 How Many Children Do You Have? 3 Son And 2 Daughters Information not available 06/07/2015 What Is Your Current Pack Years? 10packyears [email or web address] Information not available 03/17/2022 Do You Use Protection During Sex? Always [email or web address] Information not available 09/13/2020 Do You Use Your Seat Belt Or Car Seat Routinely? Yes Information not available 02/21/2022 Seat Belts Used Routinely Yes [email or web address] Information not available 03/17/2022 Are You Sexually Active? Yes Information not available 06/07/2015 Smoke Alarm In Home Yes [email or web address] Information not available 03/17/2022 Do You Have Smoke And Carbon Monoxide Detectors In Your Home? Yes Information not available 02/21/2022 At What Age Did You Start Smoking Tobacco? 19 [email or web address] Information not available 09/13/2020 Are You Passively Exposed To Smoke? No Information not available 06/07/2015 How Much Tobacco Do You Smoke? 1 PPW Information not available 02/21/2022 Do You Use Sunscreen Routinely? Yes [email or web address] Information not available 09/13/2020 How Many Years Have You Smoked Tobacco? 1 Information not available 02/21/2022 Sex: Unknown Functional Status Question Answer Note LastModified by Organizat ion Details LastModified Time Do you use any illicit or recreational drugs? No [email or web address] Information not available 03/17/2022 Do you or have you ever used any other forms of tobacco or nicotine? No [email or web address] Information not available 03/17/2022 What is your level of alcohol consumption? None Information not available 06/07/2015 Do you or have you ever used smokeless tobacco? Never used smokeless tobacco Information not available 08/13/2019 Are you currently employed? Yes Information not available 06/07/2015 Are you able to walk independently without assistance or assistive devices? YESWOREST [email or web address] Information not available 03/17/2022 Are you able to care for yourself independently? 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 Never used electronic cigarettes [email or web address] Information not available 03/17/2022 What is your exercise level? None afraid to return to the gym Information not available 02/21/2022 Mental Status None recorded. Family History Relationship Description Onset Age of this Age Resolved Age Notes LastModified by Organization Details LastModified Time Mother Hypercholest stephenia phelmuth Not available 2015 15:09:41 Father Essential hypertension 84 [email or web address] Not available 11:31:49 Father Chronic deafness [email or web address] Not available 03/17 11:31:49 Father Hypercholest erderekia phelmuth Not available 2015 15:09:41 Father Carcinoma in situ of skin [email or web address] Not available 11:31:49 Sister Essential hypertension [email or web address] Not available 11:31:49 Sister Hypothyroidi sm [email or web address] Not available 03/17 11:31:49 Sister Asthma phelmuth Not available 0 12/07/2015 15:09:41 Sister Hypercholest erderekia phelmuth Not available 2015 15:09:41 Daughter Obsessive-co mpulsive disorder 14 [email or web address] Not available 03/17 11:31:49 Daughter Depressive disorder 14 [email or web address] s Not available 01/17/2021 11:30:36 Medical History Condition Response Anxiety Disorder Y Heart Problems Y Arthritis Y Depression Y Allergies Y Chicken Pox Y Acne Y Immunizations Vaccine Type Date Status Note Provider Nam e and Address Organization Details Recorded Time Influenza, split virus, trivalent, preservative 7 completed Not Available [facility] 05/25/2023 08:37:50 Influenza, adjuvanted, trivalent, PF 8 completed Not Available [facility] 05/25/2023 08:37:50 varicella 8 completed Not Available [facility] 01/22/2023 10:46:03 Influenza, split virus, trivalent, preservative 9 completed Not Available [facility] 05/25/2023 08:37:50 Influenza, split virus, trivalent, preservative 0 completed Not Available [facility] 01/22/2023 10:46:03 COVID-19, mRNA, LNP-S, PF, 30 mcg/0.3 mL dose 1 completed Not Available [facility] 01/22/2023 10:46:03 COVID-19, mRNA, LNP-S, PF, 30 mcg/0.3 mL dose 1 completed Not Available [facility] 01/22/2023 10:46:03 COVID-19, mRNA, LNP-S, bivalent, PF, 30 mcg/0.3 mL dose 2 completed Not Available [facility] 01/22/2023 10:46:03 Influenza, MDCK, quadrivalent, PF 1 completed Not Available [facility] 01/22/2023 10:46:03 Influenza, split virus, quadrivalent, PF 8 completed Not Available [facility] 01/22/2023 10:46:04 Influenza, MDCK, quadrivalent, PF 2 completed Not Available [facility] 01/22/2023 10:46:03 Influenza, split virus, quadrivalent, PF 9 completed Not Available [facility] 01/22/2023 10:46:04 zoster recombinant 8 completed Not Available [facility] 01/22/2023 10:46:03 Influenza, MDCK, quadrivalent, PF 7 completed Not Available [facility] 01/22/2023 10:46:03 zoster recombinant 8 completed Not Available [facility] 01/22/2023 10:46:03 Influenza, split virus, trivalent, preservative 1 completed Not Available [facility] 01/22/2023 10:46:04 COVID-19, mRNA, LNP-S, PF, 30 mcg/0.3 mL dose, olivier-sucrose 2 completed Not Available [facility] 01/22/2023 10:46:03 COVID-19, mRNA, LNP-S, PF, 30 mcg/0.3 mL dose 1 completed Not Available [facility] 01/22/2023 10:46:03 Influenza, split virus, quadrivalent, PF 5 completed Not Available [facility] 01/22/2023 10:46:04 Influenza, split virus, trivalent, preservative 4 completed Not Available [facility] 01/22/2023 10:46:03 RSV, recombinant, protein subunit RSVpreF, adjuvant reconstituted, 0.5 mL, PF 3 completed [facility] 04/25/2023 10:40:19 Influenza, MDCK, quadrivalent, PF 3 completed [facility] 04/25/2023 10:54:18 COVID-19, mRNA, LNP-S, PF, olivier-sucrose, 30 mcg/0.3 mL 3 completed [facility] 04/25/2023 10:54:18 COVID-19, mRNA, LNP-S, PF, olivier-sucrose, 30 mcg/0.3 mL 4 completed KWAKU [facility] 02/15/2024 09:35:55 Influenza, split virus, trivalent, PF 4 completed [facility]WAKU [facility] 02/15/2024 09:35:55 Pneumococcal conjugate PCV20, polysaccharide [id number] conjugate, adjuvant, PF 4 completed Not Available [facility] 01/28/2025 13:13:42 COVID-19, mRNA, LNP-S, PF, olivier-sucrose, 30 mcg/0.3 mL 5 completed Not Available [facility] 01/28/2025 13:13:42 Influenza, split virus, trivalent, preservative 9 completed Not Available [facility] 01/22/2023 10:46:04 Influenza, split virus, trivalent, preservative 2 completed Not Available [facility] 01/22/2023 10:46:04 Tdap 3 completed Not Available [facility] 01/22/2023 10:46:03 Influenza, split virus, trivalent, PF 5 completed [facility] 01/28/2025 13:28:55 Past Encounters Encounter ID Performer Location Encounter Start Date Encounter Closed Date Diagnosis/Indication Diagnosis SNOMED-CT Code Diagnosis ICD10 Code Diagnosis IMO Codes Diagnosis Note [id number] Gary Herrera MD Main Office [address] [facility] [address] [facility] [place] [id number] 01/06/2025 13:14:19 01/06/2025 14:54:13 Adult health examination 915543327 Z00.00 Patient was counseled on healthy diet, exercise and nutrition due to Body mass index is 24.9 kg/m . Last PSADate: 02/21/22Re sult: 1Plan: wants to screen order placed. Last Colonoscop y:Date: 07/10/18Res ult: no polypsPlan : Per GI screen 10 yrs Vaccines:T dAP: script givenZoste r rec: 09/06/17, 12/20/17PCV 20: 04/26/24In fluenza: yearly flu encouraged Covid: 01/02/25RSV: 01/20/23 Routine labs today Immunizati on status reviewed. Will screen based on risk factors. Regular dental and ophtho care advised as well as seat belt and sunscreen use. Distracted driving discussed. Medication reconciled . 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 Follows Psych for mental Girish Bueno MD Fatigue 79364067 R53.83 R73.01 Hyperlipidemia 91697748 E78.5 Administra tion of viral vaccine 17774022 Z23 Nocturia 101444774 R35.1 [address] [facility] [address] hypothyroidism 19865584 E03.8 39051 Health Concerns Section Related Observation LastModified by Organization Detai ls LastModified Time None Recorded Concern Status LastModified by Organization Details LastModified Time None Recorded Payers Encounter Date Sequence Insurance Name Policy Number Policy Gomez Covered Member ID Gomez Member ID Guarantor Name 01/06/2025 1 [facility] [id number] Robert Yanes [id number] Robert Yanes Notes Date Note Type Note Provider Name and Address Organization Details Recorded Time 01/06/2025 text/html Generic HPI TemplateReported by PatientROS as noted in the HPI Patient presented for a physical exam. Chronic medications and medical issues, including a bicuspid aortic valve and palpitations, were reviewed. Discussed screening guidelines, fitness, and weight management goals. Gary Herrera MD [address] [address], [place], [address], [facility] 01/21/2025 11:23:06
--- OUTSIDE RECORDS SUMMARY | 2025-03-19 19:28 | XMS_ITS | Encounter Summary ---
Author Organization [facility] Address [address] [place] [address] Care Team Providers Care Criminal Justice Professor Name Role Phone Gary Smith Primary Care Provider [phone] Reason for Visit * Reason Onset Date Comments Earle/Allergy injection 12/28/2022 Encounter Details Date Type Department Care Team (Late st Contact Info) Description 12/28/2022 Telephone [facility] [address] [place] [id number] Telephone Intake, Staff Earle/Allergy injection Social History Tobacco Use Types Packs/Day Years Used Date Smoking Tobacco: Never Assessed Sex and Gender Information Value Date Recorded Sex Assigned at Male 01/15/2023 9:03 AM EDT Legal Sex Male 5:13 PM EDT Gender Identity Male 01/15/2023 9:03 AM EDT Sexual Orientation Straight 01/15/2023 9: 03 AM EDT documented as of this encounter Miscellaneous Notes * Telephone Encounter - Christiano Allen - 12/28/2022 10:05 AM EDT Pt calling stating that he has an appointment for allergy testing on 01/22/23. Pt would like to know if he has to get allergy injections would his who is a Board Certified Nurse could give him the weekly allergy shots as he lives an hour away. Pt also would like to know if provider would know where in his area he could get the allergy injections if his is not allowed to give him the shots. Pt would like a call back to discuss. Pt can be reached at [phone]. PAC Med A documented in this encounter Plan of Treatment Not on file documented as of this encounter Visit Diagnoses Not on filedocumented in this encounter Care Teams Criminal Justice Professor Relationship Specialty Start Date End Date Gary Smith [address] [address] PCP - General Family Medicine 12/21/22 documented as of this encounter
--- OUTSIDE RECORDS SUMMARY | 2025-03-19 19:28 | XMS_ITS | Clinical Summary ---
Author Organization [facility] Address [address] [place] [address] Care Team Providers Care Ent Surgeon Name Role Phone Gary Smith Primary Care Provider [phone] Allergies Active Allergy Reactions Criticality Noted Date Comments Duloxetine Other (see comments) 01/22/2023 Shellfish Containing Products Other (see comments),Respiratory Distress High 01/15/1995 Tramadol Other (see comments) 01/22/2023 Medications busPIRone (BUSPAR) 10 mg tablet TAKE 1 TABLET BY MOUTH AROUND LUNCH AND 1/2 TABLET AT BEDTIME Active LORazepam (ATIVAN) 0.5 mg tablet SMARTSI.5- 1 Tablet(s) By Mouth Daily 07/20/2022 Active lamoTRIgine (LaMICtal) 25 mg tablet SMARTSI Tablet(s) By Mouth Daily 02/23/2022 Active sertraline (ZOLOFT) 50 mg tablet Take 1 tablet by mouth once a day. 01/16/2004 Active EPINEPHrine (EPIPEN) 0.3 mg/0.3 mL injection syringe Inject 1 Syringe (0.3 mg total) into the outer thigh muscle as directed as needed for anaphylaxis. 2 each 2 01/22/2023 Active loratadine (CLARITIN) 10 mg tablet Take 1 tablet (10 mg total) by mouth once a day. 30 tablet 11 01/22/2023 Active Active Problems Problem Noted Date Diagnosed Date Cyst of epididymis 01/22/2023 Disorder of intervertebral disc of lumbar spine 01/22/2023 Fatigue 01/22/2023 Hyperlipidemia 01/22/2023 Low back pain 01/22/2023 Lower abdominal pain 01/22/2023 Major depression single episode, in partial ryne ssion 01/22/2023 Malaise and fatigue 01/22/2023 Swallowing painful 01/22/2023 Tinea corporis 01/22/2023 Perennial allergic rhinitis 01/22/2023 Assessment & Plan (01/22/2023 10:40 AM EDT): Positive skin testing to both indoor and outdoor allergens. We discussed the risks, benefits, logistics of allergen immunotherapy and he signed informed consent at today's visit. I do recommend that he have a daily long-acting, second- generation antihistamine on board through the first 6-month buildup phase. I also think this would provide benefit in the home. I do not believe he needs to continue to wear an N95 mask in the home. He should instead just minimize contact with dog if possible, not bring the dog up to his face and certainly wash his hands after he has interacted with the dog. Osteoarthritis of both hips 03/08/2022 Lichen planus of tongue 10/14/2021 Overview (01/22/2023): tongue biopsy 09/2021 Cervical radiculopathy 09/13/2020 Decreased range of motion of shoulder 11/24/2019 Pain in joint of left shoulder 11/24/2019 Subclinical hypothyroidism 04/26/2018 Acute upper respiratory infection 07/29/2012 Overview (01/22/2023): IMPRESSION: LUNGS CLEAR TODAY AND AFEBRILE, RECOMMEND SUPPORTIVE TX, WILL CALL BACK FOR CXR IF NOT IMPROVING OR WORSENING.; RECORDED 07/29/2012 12:56PM BY HERSON FULLER MA, ANNOTATION/ADDENDUM Anemia 06/19/2012 Overview (01/22/2023): RECORDED 06/19/2012 9:14AM BY WASHINGTON BARNETT MA, ANNOTATION/ADDENDUM Congenital insufficiency of aortic valve 013 Overview (01/22/2023): RECORDED 06/19/2012 9:14AM BY WASHINGTON BARNETT MA, ANNOTATION/ADDENDUM Irritable bowel syndrome 06/19/2012 Overview (01/22/2023): RECORDED 06/19/2012 9:14AM BY WASHINGTON BARNETT MA, ANNOTATION/ADDENDUM Lateral epicondylitis 06/19/2012 Overview (01/22/2023): RECORDED 06/19/2012 9:14AM BY WASHINGTON BARNETT MA, ANNOTATION/ADDENDUM Pneumonia 06/19/2012 Overview (01/22/2023): RECORDED 06/19/2012 9:14AM BY WASHINGTON BARNETT MA, ANNOTATION/ADDENDUM Anxiety 01/15/1995 Overview (01/22/2023): IMPRESSION: FOLLOWED BY PSYCH; RECORDED 06/19/2012 9:14AM BY WASHINGTON BARNETT MA, ANNOTATION/ADDENDUM Social History Tobacco Use Types Packs/Day Years Used Date Smoking Tobacco: Never Assessed Sex and Gender Information Value Date Recorded Sex Assigned at Male 01/15/2023 9:03 AM EDT Legal Sex Male 5:13 PM EDT Gender Identity Male 01/15/2023 9:03 AM EDT Sexual Orientation Straight 01/15/2023 9: 03 AM EDT Last Filed Vital Signs Vital Sign Reading Time Taken Comments Blood Pressure 124/76 01/22/2023 8:24 AM EDT Pulse 97 01/22/2023 8:24 AM EDT Temperature - - Respiratory Rate 20 01/22/2023 8:24 AM EDT Oxygen Saturation 98% 01/22/2023 8:24 AM EDT Inhaled Oxygen Concentration - - Weight 89.6 kg (197 lb 9.6 oz) 01/22/2023 8:24 A M EDT Height - - Body Mass Index - - Plan of Treatment Health Maintenance Due Date Last Done Comments Cologuard 1961 Colon Cancer Screening 1961 Colonoscopy 1961 FOBT / Fit Test 1961 HIV Screening 1961 Hepatitis C Screening 1961 Sigmoidoscopy 1961 Pneumococcal Vaccine: 50+ Years (1 of 1 - PCV) 2011 DTaP,Tdap,and Td Vaccines (2 - Td or Tdap) 07/29/2022 07/29/2012 Alcohol/Substance Use Screening 04/30/2024 Depression Screening and Follow-Up 04/30/2024 Social Drivers of Health Annual Screening 04/30/2024 Influenza Vaccine (#1) 2024 , 02/02/2022, 01/17/2021, Additional history exists COVID-19 Vaccine (2024- season) 2024 02/01/2023, 01/06/2022, 07/31/2021, Additional history exists Zoster Vaccines Completed 12/20/2017, 11/29, 09/06/2017 RSV Vaccine (60+ years old and patients) Completed 01/23/2023 Hepatitis B Vaccines Aged Out No long er eligible based on patient's age to complete this topic Insurance HNE Care Teams Ent Surgeon Relationship Specialty Start Date End Date Gary Smith [id number] [facility] [address] [place] [address] PCP - General Family Medicine 12/21/22
--- OUTSIDE RECORDS SUMMARY | 2025-03-19 19:29 | XMS_ITS | Continuity of Care Document ---
Author Organization [facility], Main Office Address [address] [place] [address] Care Team Providers Care Art Model Name Role Phone GUME ESTRADA Press Tool Maker MARIANNE SHER Psychiatrist [phone] LUDWIN COLVIN Traffic Control Operator GARY HERRERA Primary Care Provider [facility] Raw Mill Operator [phone] LESLIE MCINTYRE Rounding Machine Operator [facility] Physical Therapist Assessment No assessment recorded. Plan of Treatment Reminders Order Date Submit Date Provider Last Modified By Organization Details Last Modified Time Details Appointments None recorde d. Lab None recorde d. Referral physica l medicin e and rehabil itation referra l - please eval for R hip and LBP - thanks! 2024 025 joe Elise MD, [address] [facility] [address], [place], [address], 08:48:53 Procedures None recorde d. Surgeries None recorde d. Imaging XR, lumbar spine [address] [facility], [address] [place], [address], 5 16:44:37 XR, hip, unilate ral, 2 or 3 view [address] [facility], [address] [place], [address], 16:43:47 Medication Orders None recorde d. Patient TargetsNo targets recorded. Patient Instructions Encounter Date Encounter Id Patient Instructions Last Modified By Organization Details Last Modified Time 01/22/2025 [id number] Follow up if no improvement or if symptoms worsen. [email or web address] Not available 01/22/2025 13:24:16 Reason for Referral Physical Medicine And Rehabi litation Referral for Pain of hip region please eval for R hip and LBP - thanks! Referring Physician: Rebel Jordan, Internal Medicine, Encounter Date: 01/22/2025 Results Created Date Observation Date Name Description Value Unit Range Abnormal Flag Note LastModifiedBy Organization Detail LastModifiedTime 01/07/2001/07/2025 CMP14 (REFL EX HGB A1C) glucose 96 mg/dL 70-99 normal Not Available [facility] ([facility]) [address] [place], [address], 01/07/2025 08:07:52 01/07/2001/07/2025 CMP14 (REFL EX HGB A1C) BUN 11 mg/dL 8-27 normal Not Available [facility] ([facility]) [address] [place], [address], 01/07/2025 08:07:52 01/07/2001/07/2025 CMP14 (REFL EX HGB A1C) creatinine 0.87 mg/dL 0.76-1 .27 normal Not Available [facility] ([facility]) [address] [place], [address], 01/07/2025 08:07:52 01/07/2001/07/2025 CMP14 (REFL EX HGB A1C) eGFR 97 mL/mi n/1.7 3 >59 normal Not Available [facility] ([facility]) [address] [place], [address], 01/07/2025 08:07:52 09/09/20 25 01/07/2025 CMP14 (REFL EX HGB A1C) BUN/creatini ne ratio 13 10-24 normal Not Available [facility] ([facility]) [address] [place], [address], 01/07/2025 08:07:52 01/07/2001/07/2025 CMP14 (REFL EX HGB A1C) sodium 141 mmol/ L 134-14 4 normal Not Available [facility] ([facility]) [address] [place], [address], 01/07/2025 08:07:52 01/07/2001/07/2025 CMP14 (REFL EX HGB A1C) potassium 4.6 mmol/ L 3.5-5. 2 normal Not Available [facility] ([facility]) [address] [place], [address], 01/07/2025 08:07:52 01/07/2001/07/2025 CMP14 (REFL EX HGB A1C) chloride 101 mmol/ L 96-106 normal Not Available [facility] ([facility]) [address] [place], [address], 01/07/2025 08:07:52 01/07/2001/07/2025 CMP14 (REFL EX HGB A1C) carbon dioxide, total 23 mmol/ L 20-29 normal Not Available [facility] ([facility]) [address] [place], [address], 01/07/2025 08:07:52 01/07/2001/07/2025 CMP14 (REFL EX HGB A1C) calcium 9.5 mg/dL 8.6-10 .2 normal Not Available [facility] ([facility]) [address] [place], [address], 01/07/2025 08:07:52 01/07/20 25 01/07/2025 CMP14 (REFL EX HGB A1C) protein, total 7.5 g/dL 6.0-8. 5 normal Not Available [facility] ([facility]) [address] [place], [address], 01/07/2025 08:07:52 01/07/2001/07/2025 CMP14 (REFL EX HGB A1C) albumin 4.6 g/dL 3.9-4. 9 normal Not Available [facility] ([facility]) [address] [place], [address], 01/07/2025 08:07:52 01/07/2001/07/2025 CMP14 (REFL EX HGB A1C) globulin, total 2.9 g/dL 1.5-4. 5 Not Available [facility] ([facility]) [address] [place], [address], 01/07/2025 08:07:52 01/07/2001/07/2025 CMP14 (REFL EX HGB A1C) bilirubin, total 0.6 mg/dL 0.0-1. 2 normal Not Available [facility] ([facility]) [address] [place], [address], 01/07/2025 08:07:52 01/07/2001/07/2025 CMP14 (REFL EX HGB A1C) alkaline phosphatase 76 IU/L 44-121 normal Eff ectiv e Septe mb 2024 Alkal ine Phosp hatas e refer [...] 129 48 - 129 Not Available [facility] ([facility]) [address] [facility] [place], [address], 01/07/2025 08:07:52 01/07/2001/07/2025 CMP14 (REFL EX HGB A1C) AST (SGOT) 18 IU/L 0-40 normal Not Available [facility] ([facility]) [address] [facility] [place], [address], 01/07/2025 08:07:52 01/07/2001/07/2025 CMP14 (REFL EX HGB A1C) ALT (SGPT) 17 IU/L 0-44 normal Not Available [facility] ([facility]) [address] [place], [address], 01/07/2025 08:07:52 01/07/2001/07/2025 CBC WITH DIFFE RENTI AL/PL ATELE T WBC 6.4 x10e3 /uL 3.4-10 .8 normal Not Available [facility] ([facility]) [address] [place], [address], 01/07/2025 08:07:53 01/07/2001/07/2025 CBC WITH DIFFE RENTI AL/PL ATELE T RBC 4.83 x10e6 /uL 4.14-5 .80 normal Not Available [facility] ([facility]) [address] [place], [address], 01/07/2025 08:07:53 01/07/2001/07/2025 CBC WITH DIFFE RENTI AL/PL ATELE T hemoglobin 14.9 g/dL 13.0-1 7.7 normal Not Available [facility] ([facility]) [address] [place], [address], 01/07/2025 08:07:53 01/07/2001/07/2025 CBC WITH DIFFE RENTI AL/PL ATELE T hematocrit 44.7 % 37.5-5 1.0 normal Not Available [facility] ([facility]) [address] [place], [address], 01/07/2025 08:07:53 01/07/2001/07/2025 CBC WITH DIFFE RENTI AL/PL ATELE T MCV 93 fL 79-97 normal Not Available [facility] ([facility]) [address] [place], [address], 01/07/2025 08:07:53 01/07/2001/07/2025 CBC WITH DIFFE RENTI AL/PL ATELE T MCH 30.8 pg 26.6-3 3.0 normal Not Available [facility] ([facility]) [address] [place], [address], 01/07/2025 08:07:53 01/07/2001/07/2025 CBC WITH DIFFE RENTI AL/PL ATELE T MCHC 33.3 g/dL 31.5-3 5.7 normal Not Available [facility] ([facility]) [address] [place], [address], 01/07/2025 08:07:53 01/07/2001/07/2025 CBC WITH DIFFE RENTI AL/PL ATELE T RDW 13.1 % 11.6-1 5.4 Not Available [facility] ([facility]) [address] [place], [address], 01/07/2025 08:07:53 01/07/2001/07/2025 CBC WITH DIFFE RENTI AL/PL ATELE T platelets 239 x10e3 /uL 150-45 0 normal Not Available [facility] ([facility]) [address] [place], [address], 01/07/2025 08:07:53 01/07/2001/07/2025 CBC WITH DIFFE RENTI AL/PL ATELE T neutrophils 70 % not estab. normal Not Available [facility] ([facility]) [address] [facility], [place], [address], 01/07/2025 08:07:53 01/07/20 25 01/07/2025 CBC WITH DIFFE RENTI AL/PL ATELE T lymphs 22 % not estab. normal Not Available [facility] ([facility]) [address] [facility], [place], [address], 01/07/2025 08:07:53 01/07/2001/07/2025 CBC WITH DIFFE RENTI AL/PL ATELE T monocytes 7 % not estab. normal Not Available [facility] ([facility]) [address] [facility], [place], [address], 01/07/2025 08:07:53 01/07/2001/07/2025 CBC WITH DIFFE RENTI AL/PL ATELE T eos 1 % not estab. normal Not Available [facility] ([facility]) [address] [facility], [place], [address], 01/07/2025 08:07:53 01/07/2001/07/2025 CBC WITH DIFFE RENTI AL/PL ATELE T basos 0 % not estab. normal Not Available [facility] ([facility]) [address] [facility], [place], [address], 01/07/2025 08:07:53 01/07/2001/07/2025 CBC WITH DIFFE RENTI AL/PL ATELE T immature cells CATALYST OPERATOR GASOLINE Not Available [facility] ([facility]) [address] [facility], [place], [address], 01/07/2025 08:07:53 01/07/20 25 01/07/2025 CBC WITH DIFFE RENTI AL/PL ATELE T neutrophils (absolute) 4.5 x10e3 /uL 1.4-7. 0 normal Not Available [facility] ([facility]) [address] [facility], [place], [address], 01/07/2025 08:07:53 01/07/2001/07/2025 CBC WITH DIFFE RENTI AL/PL ATELE T lymphs (absolute) 1.4 x10e3 /uL 0.7-3. 1 normal Not Available [facility] ([facility]) [address] [facility], [place], [address], 01/07/2025 08:07:53 01/07/2001/07/2025 CBC WITH DIFFE RENTI AL/PL ATELE T monocytes(ab solute) 0.5 x10e3 /uL 0.1-0. 9 normal Not Available [facility] ([facility]) [address] [facility], [place], [address], 01/07/2025 08:07:53 01/07/2001/07/2025 CBC WITH DIFFE RENTI AL/PL ATELE T eos (absolute) 0.1 x10e3 /uL 0.0-0. 4 normal Not Available [facility] ([facility]) [address] [facility], [place], [address], 01/07/2025 08:07:53 01/07/2001/07/2025 CBC WITH DIFFE RENTI AL/PL ATELE T baso (absolute) 0.0 x10e3 /uL 0.0-0. 2 normal Not Available [facility] ([facility]) [address] [facility], [place], [address], 01/07/2025 08:07:53 01/07/2001/07/2025 CBC WITH DIFFE RENTI AL/PL ATELE T immature granulocytes 0 % not estab. Not Available [facility] ([facility]) [address] [facility], [place], [address], 01/07/2025 08:07:53 01/07/2001/0701/07/2025 CBC WITH DIFFE RENTI AL/PL ATELE T immature grans (abs) 0.0 x10e3 /uL 0.0-0. 1 Not Available [facility] ([facility]) [address] [facility], [place], [address], 01/07/2025 08:07:53 01/07/20 25 01/07/2025 CBC WITH DIFFE RENTI AL/PL ATELE T NRBC CATALYST OPERATOR GASOLINE Not Available [facility] ([facility]) [address] [facility], [place], [address], 01/07/2025 08:07:53 01/07/2001/07/2025 CBC WITH DIFFE RENTI AL/PL ATELE T hematology comments: CATALYST OPERATOR GASOLINE Not Available [facility] ([facility]) [address] [facility], [place], [address], 01/07/2025 08:07:53 01/07/20 25 01/07/2025 LIPID PANEL cholesterol, total 205 mg/dL 100-19 9 above high normal Not Available [facility] ([facility]) [address] [place], [address], 01/07/2025 08:07:54 01/07/2001/07/2025 LIPID PANEL triglyceride s 101 mg/dL 0-149 normal Not Available [facility] ([facility]) [address] [place], [address], 01/07/2025 08:07:54 01/07/2001/07/2025 LIPID PANEL HDL cholesterol 41 mg/dL >39 normal Not Available [facility] ([facility]) [address] [place], [address], 01/07/2025 08:07:54 01/07/20 25 01/07/2025 LIPID PANEL VLDL cholesterol hayley 18 mg/dL 5-40 Not Available [facility] ([facility]) [address] [place], [address], 01/07/2025 08:07:54 01/07/2001/07/2025 LIPID PANEL LDL chol calc ([facility]) 146 mg/dL 0-99 above high normal Not Available [facility] ([facility]) [address] [place], [address], 01/07/2025 08:07:54 01/07/2001/07/2025 LIPID PANEL LDL calc comment: CATALYST OPERATOR GASOLINE Not Available [facility] ([facility]) [address] [place], [address], 01/07/2025 08:07:54 01/07/2001/07/2025 TSH+F REE T4 TSH 5.520 uIU/m L 0.450- 4.500 above high normal Not Available [facility] ([facility]) [address] [place], [address], 01/07/2025 10:06:16 01/07/2001/07/2025 TSH+F REE T4 T4,free(dire ct) 1.01 NG/dL 0.82-1 .77 normal Not Available [facility] ([facility]) [address] [place], [address], 01/07/2025 10:06:16 01/07/2001/06/2025 PSA TOTAL (REFL EX TO FREE) reflex criteria Commen t The perce nt free PSA is perfo rmed on a refle x basis only when the total PSA is betwe en 4.0 and 10.0 ng/mL . Not Available [facility] ([facility]) [address] [place], [address], 01/07/2025 10:06:17 01/07/2001/07/2025 PSA TOTAL (REFL EX [...] t be inter prete d as absol ak chin evide nce of the prese nce or absen ce of malig nant disea se. Not Available [facility] ([facility]) [address] [facility], [place], [address], 01/07/2025 10:06:17 01/07/2001/07/2025 THYRO GLOBU SUNDEEP ANTIB [...] to 4 IU/mL . Not Available [facility] ([facility]) [address] [facility], [place], [address], 01/07/2025 10:06:17 01/07/2001/08/2025 THYRO ID PEROX IDASE (TPO) AB thyroid peroxidase (tpo) Ab >600 IU/mL 0-34 above high normal Not Available [facility] ([facility]) [address] [facility], [place], [address], 01/08/2025 08:07:57 01/07/2001/07/2025 WRITT EN AUTHO RIZAT ION written authorizatio n Dioni castañeda Christine en Autho rizat ion Recei jero. Autho rizat ion recei jero from [facility] MICHELLE HERRERA for Link Panchito franks on 01-07 Logge d by Roderick Bunch Not Available [facility] ([facility]) [address] [facility], [place], [address], 01/08/2025 08:07:57 01/27/2001/25/2025 XR, hip, unila teral , 2 or 3 view AP and frog-l eg latera l view of the right hip dated 2024. No prior studie s are availa ble. Correl ation is made with a pelvis study from 2021. HISTOR Y: Right hip pain. FINDIN GS: This examin ation shows no eviden ce of fractu re or disloc ation. There is some subcho ndral sclero sis in the hip joint. Minima l osteop hytes are noted as well. IMPRES BRAD: Mild degene rative change s. No eviden ce of fractu re or disloc ation. Examin ation [id number]. Thank you for allowi ng me to partic ipate in the care of this patien t. WSN: [id number] Orderi ng Physic portia: Jimmy Jordan Dictat ed By: Christian Rodriguez MD Dictat ed Date/T ivania: 4:40 pm Review ed By: Christian Rodriguez MD Signed By: Christian Rodriguez MD Signed Date/T ivania: 4:40 pm Transc ribed By: GORDY Transc ribed Date/T ivania: 4:40 pm Patien t Class: [facility]pat ient [facility] ([facility]) [address] [facility], [place], [address], 01/26/2025 19:11:52 01/27/20 25 01/25/2025 XR, lumba r spine Lumbos acral spine 3 views dated 2024. No prior studie s are availa ble. HISTOR Y: Pain. FINDIN GS: The verteb ral bodies are normal in height . Interv ertebr al disc spaces are fairly well-p reserv ed. Minima l endpla te osteop hytes are noted. IMPRES BRAD: Minima l degene rative change s. No eviden ce of fractu re or disloc ation. Examin ation [id number]. Thank you for allowi bandar me to partic ipate in the care of this patien t. WSN: [id number] Orderi ng Physic portia: Jimmy Jordan Dictat ed By: Christian Rodriguez MD Dictat ed Date/T ivania: 4:41 pm Review ed By: Christian Rodriguez MD Signed By: Christian Rodriguez MD Signed Date/T ivania: 4:41 pm Transc ribed By: GORDY Transc ribed Date/T ivania: 4:41 pm Patien t Class: Outpat [facility] ([facility]) [address] [place] [address], [address], 01/26/2025 19:11:52 Result Notes None recorded. Problems Name Problem SNOMED Code Status Onset Date Resolution Date Notes Provider Name and Address Organization Details Recorded Time Anxiety state 652285971 Active Not Available [facility] 2 12:56:36 Patient status finding 259798559 Completed 04/03/2016 KWAKU Velazquez [facility] 6 09:38:58 Congenit al insuffic iency of aortic valve 41409939 Active Not Available [facility] 2 12:56:36 Screenin g for malignan t neoplasm of colon Completed 04/03/2016 KWAKU Velazquez [facility] 6 09:39:07 Follow-u p encounte r Completed 04/03/2016 KWAKU Velazquez [facility] 6 09:39:11 Malaise and fatigue 445007543 Completed 04/03/2016 WKAKU Velazquez, [facility] 6 09:39:04 Hyperlip idemia 88695058 Active Not Available [facility] 2 12:56:36 Irritabl e bowel syndrome 42039523 Completed 04/25/2023 Gary Herrera MD [address], [place], [address] , [facility] 11:24:49 Major depressi on single episode, in partial remissio n 35451167 Active Not Available [facility] 2 12:56:36 Adult health examinat ion Completed 04/03/2016 KWAKU Velazquez, [facility] 6 09:39:01 Administ ration of diphther ia and tetanus vaccine Completed 02/19/2017 KWAKU Velazquez, [facility] 7 13:33:57 Low back pain 564412305 Completed 02/21/2022 Gary Herrera MD [address], [place], [address] , [facility] 2 11:35:32 Tinea corporis 91866769 Completed 02/21/2022 Gary Herrera MD [address], [place], [address] , [facility] 2 11:35:53 Lower abdomina l pain 74483955 Completed 02/19/2017 KWAKU Velazquez, [facility] 7 13:33:48 Disorder of lumbar disc 294750315 Active Not Available [facility] 2 12:56:36 Tinnitus 85890351 Completed 04/03/2016 KWAKU Velazquez, [facility] 6 09:39:20 Cyst of epididym is 86749338 Completed 04/26/2018 David Cisse MD [address] [facility] [address], [place], [address] , [facility] 8 11:47:37 Swallowi ng painful 81124905 Completed 04/03/2016 Minerva porter [place] null, [facility] 6 09:39:15 Fatigue 74922498 Completed 04/03/2016 Minerva porter [place] null, [facility] 6 09:39:25 Bilatera l trochant jon bursitis [id number] 243649 Active Minerva porter [place] null, [facility] 5 14:07:34 Interver tebral disc prolapse 97032940 Active L5-S1 Minerva porter [place] null, [facility] 5 14:12:52 Anemia 427539142 Completed 201211/11/2013 RECORDED 06/19/19 13 9:14AM BY WASHINGTON BARNETT MA, ANNOTATI ON/ADDEN DUM Not Available [facility] 4 14:39:31 Anxiety state 585323435 Completed 201211/11/2013 IMPRESSI ON: FOLLOWED BY PSYCH; RECORDED 06/19/19 13 9:14AM BY WASHINGTON BARNETT MA, ANNOTATI ON/ADDEN DUM Not Available [facility] 4 14:39:31 Congenit al insuffic iency of aortic valve 52696626 Completed 201211/11/2013 RECORDED 06/19/19 13 9:14AM BY WASHINGTON BARNETT MA, ANNOTATI ON/ADDEN DUM Not Available [facility] 4 14:39:32 Pneumoni a 706380932 Completed 201211/11/2013 RECORDED 06/19/19 13 9:14AM BY WASHINGTON BARNETT MA, ANNOTATI ON/ADDEN DUM Not Available [facility] 4 14:39:32 Irritabl e bowel syndrome 98065069 Completed 201211/11/2013 RECORDED 06/19/19 13 9:14AM BY WASHINGTON BARNETT MA, ANNOTATI ON/ADDEN DUM Gary Herrera MD [address] [facility] [address], [facility] [place], [address] , [facility] 3 11:24:49 Lateral epicondy litis 407462159 Completed 201211/11/2013 RECORDED 06/19/19 13 9:14AM BY WASHINGTON BARNETT MA, ANNOTATI ON/ADDEN DUM Not Available [facility] 4 14:39:32 Adult health examinat ion Completed 201211/11/2013 RECORDED 06/19/19 13 9:14AM BY WASHINGTON BARNETT MA, ANNOTATI ON/ADDEN DUM KWAKU Velazquez, [facility] 6 09:39:01 Anemia 902356954 Completed 201212/04/2013 RECORDED 06/19/19 13 9:14AM BY WASHINGTON BARNETT MA, ANNOTATI ON/ADDEN DUM Not Available [facility] 4 12:53:34 Pneumoni a 395132991 Completed 201212/04/2013 RECORDED 06/19/19 13 9:14AM BY WASHINGTON BARNETT MA, ANNOTATI ON/ADDEN DUM Not Available [facility] 4 12:53:35 Lateral epicondy litis 969665373 Completed 201212/04/2013 RECORDED 06/19/19 13 9:14AM BY WASHINGTON BARNETT MA, ANNOTATI ON/ADDEN DUM Not Available [facility] 4 12:53:35 Anemia 308474355 Completed 201212/05/2013 RECORDED 06/19/19 13 9:14AM BY WASHINGTON BARNETT MA, ANNOTATI ON/ADDEN DUM Not Available [facility] 4 03:48:35 Pneumoni a 502326030 Completed 201212/05/2013 RECORDED 06/19/19 13 9:14AM BY WASHINGTON BARNETT MA, ANNOTATI ON/ADDEN DUM Not Available [facility] 4 03:48:35 Lateral epicondy litis 149031168 Completed 201212/05/2013 RECORDED 06/19/19 13 9:14AM BY WASHINGTON BARNETT MA, ANNOTATI ON/ADDEN DUM Not Available [facility] 4 03:48:35 Acute upper respirat ory infectio n 05828688 Completed 201211/11/2013 IMPRESSI ON: LUNGS CLEAR TODAY AND AFEBRILE , RECOMMEN D SUPPORTI VE TX, WILL CALL BACK FOR CXR IF NOT IMPROVIN G OR WORSENIN G.; RECORDED 07/30/19 13 12:56PM BY MINERVA GUERRERO MA, ANNOTATI ON/ADDEN DUM Not Available [facility] 4 14:39:33 Acute upper respirat ory infectio n 31256047 Completed 201212/04/2013 IMPRESSI ON: LUNGS CLEAR TODAY AND AFEBRILE , RECOMMEN D SUPPORTI VE TX, WILL CALL BACK FOR CXR IF NOT IMPROVIN G OR WORSENIN G.; RECORDED 07/30/19 13 12:56PM BY MINERVA GUERRERO MA, ANNOTATI ON/ADDEN DUM Not Available [facility] 4 12:53:35 Acute upper respirat ory infectio n 12157807 Completed 201212/05/2013 IMPRESSI ON: LUNGS CLEAR TODAY AND AFEBRILE , RECOMMEN D SUPPORTI VE TX, WILL CALL BACK FOR CXR IF NOT IMPROVIN G OR WORSENIN G.; RECORDED 07/30/19 13 12:56PM BY MINERVA GUERRERO MA, ANNOTATI ON/ADDEN DUM Not Available [facility] 4 03:48:35 Spinal stenosis of lumbosac ral region 410378229 Active 2013 MRI results KWAKU Velazquez [place] - Located [facility] 5 14:12:25 Subclini hayley hypothyr oidism 11828417 Completed 201704/26/2023 Gary Herrera MD [address] [place], [address] , [facility] 3 22:00:43 Pain of left shoulder joint 41906471294 208975 Completed 201904/25/2023 Gary Herrera MD [address] [facility] [address], [place], [address] , [facility] 3 11:24:52 Decrease d range of shoulder movement 105906321 Active 2019 Not Available [facility] 2 12:56:36 Cervical radiculo kenia 92546723 Completed 202004/25/2023 Gary Herrera MD [address] [facility] [address], [place], [address] , [facility] 3 11:23:11 Lichen planus of tongue 610187164 Active 2021 tongue biopsy 09/2021 Not Available [facility] 2 12:56:36 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 32749441543 9105 Active 2021 Alicia patel, [facility] 2 13:26:36 Environm ental allergy 880424675 Active 2022 Rebel Jordan PA-C [address] [facility] [address], [place], [address] , [facility] 3 11:51:39 History of actinic keratosi s 43770125144 04 Active 2022 Gary Herrera MD [address] [facility] [address], [place], [address] , [facility] 3 22:03:25 Chronic low back pain 288043086 Active 2023 Girish Herrera MD [address] [facility] [address], [place] [place], [address] , [facility] [place] 09:14:03 Osteoart hritis of right hip joint [id number] 9107 Active 2023 Liz Becker, [facility] [address], [place], [address] , [facility] [place] 09:51:59 Problem Notes None recorded. Procedures Surgical History Date Name Laterality Status Provider Name and Address Organization Details Recorded Time 05/10/19 23 excision of benign lesion of trunk completed Minerva calderon MA [facility] 07/03/2022 09:19:53 07/11/19 19 Colonoscopy completed Chinyere Chavez [facility] 07/10/2018 15:39:14 07/07/19 18 Chronic Pain Assessment completed Minerva calderon MA [facility] 07/06/2017 11:45:57 12/23/19 17 Chronic Pain Assessment completed Minerva calderon MA [facility] 12/22/2016 09:36:59 08/18/19 17 Chronic Pain Assessment completed Minerva calderon MA [facility] 08/17/2016 13:37:09 08/12/19 16 Echo Transthoracic completed Minerva calderon MA [facility] 08/14/2015 10:38:23 04/30/18 92 Repair nasal septum defect completed Minerva calderon MA [facility] 06/07/2015 13:33:55 04/30/18 68 Tonsillectomy completed Stephanie Bey MA [facility] 09/13/2020 13:06:03 Imaging Results None recorded. Procedure Notes None recorded. Medical Equipment None Reported. Allergies Allergen ID Allergen Name Allergen Category Reaction Reaction Severity Criticality Documentation Date Start Date Code Code System Note Provider Name and Address Organization Details Recorded Time 86825 tramadol medicatio n other Not available Not available 06/16/20142022 29964 RxNorm unabl e to SANTIAGO Parsons [facility] 3 09:13:38 2812 Shellfish (substanc e) food,medi cation other respirato ry distress Not available Not available high 11/11/20131994 14613 9006 SNOMED SANTIAGO Albarran [facility] 3 09:15:13 81251 duloxetin e medicatio n other Not available Not available 01/17/20212022 29955 RxNorm SANTIAGO Albarran [facility] 3 09:12:46 Medications Name Sig Start [...] Details Last Updated DateTime 5 183.01 cm 24.8 kg/m2 65766.4 g 106 /min 98 % 97.7 [degF] 122/68 mm[Hg] Minerva Vonda-M attos, MA [facility] 13:18:33 Social History Question Answer Notes LastModified by Organizat ion Details LastModified Time Tobacco Smoking Status Former Smoker KWAKU Herrera, [facility] 09/13/2020 13:05:45 Do You Have An Advance Directive? Yes Information not available 03/17/2022 Is Blood Transfusion [...] 06/07/2015 When Did You Quit Smoking? 17+yearssince [email or web address] Information not available 09/13/2020 Live Alone Or With Others? With Others (Robert) And Xozafb-ct-cq w, Brother Brant And Chris [email or web address] Information not available 04/25/2023 Do You Take [...] Or Greater Than 100 Degrees Fahrenheit? No [email or web address] Information not available 11/24/2019 Are You Or Anyone In Your Household A Health Care Provider Or Emergency Responder? No [email or web address] Information not available 11/24/2019 To The Best Of Your Knowledge Have You Been In Close Proximity To Any Individual Who Tested Positive For COVID-19? No [email or web address] Information not available 11/24/2019 Have You Recently Traveled To A COVID-19 High Risk Area Or Gathering In The Last 10 Days? No Information not available 09/13/2020 What Was The Date Of Your Most Recent Tobacco Screening? 01/06/2025 Information not available 01/06/2025 How Many Children Do You Have? 3 Son And 2 Daughters Information not available 06/07/2015 What Is Your Current Pack Years? 10packyears [email or web address] Information not available 03/17/2022 Do You Use Protection During Sex? Always [email or web address] Information not available 09/13/2020 Do You Use Your Seat Belt Or Car Seat Routinely? Yes Information not available 02/21/2022 Seat Belts Used Routinely Yes [email or web address] Information not available 03/17/2022 Are You Sexually Active? Yes Information not available 06/07/2015 Smoke Alarm In Home Yes [email or web address] Information not available 03/17/2022 Do You Have Smoke And Carbon Monoxide Detectors In Your Home? Yes Information not available 02/21/2022 At What Age Did You Start Smoking Tobacco? 19 [email or web address] Information not available 09/13/2020 Are You Passively Exposed To Smoke? No Information not available 06/07/2015 How Much Tobacco Do You Smoke? 1 PPW Information not available 02/21/2022 Do You Use Sunscreen Routinely? Yes [email or web address] Information not available 09/13/2020 How Many Years Have You Smoked Tobacco? 1 Information not available 02/21/2022 Sex: Unknown Functional Status Question Answer Note LastModified by Organizat ion Details LastModified Time Do you use any illicit or recreational drugs? No [email or web address] Information not available 03/17/2022 Do you or have you ever used any other forms of tobacco or nicotine? No [email or web address] Information not available 03/17/2022 What is your level of alcohol consumption? None Information not available 06/07/2015 Do you or have you ever used smokeless tobacco? Never used smokeless tobacco Information not available 08/13/2019 Are you currently employed? Yes Information not available 06/07/2015 Are you able to walk independently without assistance or assistive devices? YESWOREST [email or web address] Information not available 03/17/2022 Are you able to care for yourself independently? 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 Never used electronic cigarettes [email or web address] Information not available 03/17/2022 What is your exercise level? None afraid to return to the gym Information not available 02/21/2022 Mental Status None recorded. Family History Relationship Description Onset Age of this Age Resolved Age Notes LastModified by Organization Details LastModified Time Mother Hypercholest otilio hornuth Not available 2015 15:09:41 Father Essential hypertension 84 [email or web address] Not available 11:31:49 Father Chronic deafness [email or web address] Not available 03/17 11:31:49 Father Hypercholest otilio hornuth Not available 2015 15:09:41 Father Carcinoma in situ of skin Not available 11:31:49 Sister Essential hypertension [email or web address] Not available 11:31:49 Sister Hypothyroidi sm [email or web address] Not available 03/17 11:31:49 Sister Asthma [email or web address] Not available 0 12/07/2015 15:09:41 Sister Hypercholesgarry hornuth Not available 2015 15:09:41 Daughter Obsessive-co mpulsive disorder 14 [email or web address] Not available 03/17 11:31:49 Daughter Depressive disorder 14 [email or web address] s Not available 01/17/2021 11:30:36 Medical History Condition Response Anxiety Disorder Y Heart Problems Y Arthritis Y Depression Y Chicken Pox Y Allergies Y Acne Y Immunizations Vaccine Type Date Status Note Provider Nam e and Address Organization Details Recorded Time Influenza, split virus, trivalent, preservative 08/23/201 7 completed Not Available [facility] 05/25/2023 08:37:50 Influenza, adjuvanted, trivalent, PF 8 completed Not Available [facility] 05/25/2023 08:37:50 varicella 8 completed Not Available [facility] 01/22/2023 10:46:03 Influenza, split virus, trivalent, preservative 9 completed Not Available [facility] 05/25/2023 08:37:50 Influenza, split virus, trivalent, preservative 0 completed Not Available [facility] 01/22/2023 10:46:03 COVID-19, mRNA, LNP-S, PF, 30 mcg/0.3 mL dose 1 completed Not Available [facility] 01/22/2023 10:46:03 COVID-19, mRNA, LNP-S, PF, 30 mcg/0.3 mL dose 1 completed Not Available [facility] 01/22/2023 10:46:03 COVID-19, mRNA, LNP-S, bivalent, PF, 30 mcg/0.3 mL dose 2 completed Not Available [facility] 01/22/2023 10:46:03 Influenza, MDCK, quadrivalent, PF 1 completed Not Available [facility] 01/22/2023 10:46:03 Influenza, split virus, quadrivalent, PF 8 completed Not Available [facility] 01/22/2023 10:46:04 Influenza, MDCK, quadrivalent, PF 2 completed Not Available [facility] 01/22/2023 10:46:03 Influenza, split virus, quadrivalent, PF 9 completed Not Available [facility] 01/22/2023 10:46:04 zoster recombinant 8 completed Not Available [facility] 01/22/2023 10:46:03 Influenza, MDCK, quadrivalent, PF 7 completed Not Available [facility] 01/22/2023 10:46:03 zoster recombinant 8 completed Not Available [facility] 01/22/2023 10:46:03 Influenza, split virus, trivalent, preservative 1 completed Not Available [facility] 01/22/2023 10:46:04 COVID-19, mRNA, LNP-S, PF, 30 mcg/0.3 mL dose, olivier-sucrose 2 completed Not Available [facility] 01/22/2023 10:46:03 COVID-19, mRNA, LNP-S, PF, 30 mcg/0.3 mL dose 1 completed Not Available [facility] 01/22/2023 10:46:03 Influenza, split virus, quadrivalent, PF 5 completed Not Available [facility] 01/22/2023 10:46:04 Influenza, split virus, trivalent, preservative 4 completed Not Available [facility] 01/22/2023 10:46:03 RSV, recombinant, protein subunit RSVpreF, adjuvant reconstituted, 0.5 mL, PF 3 completed KWAKU Castellanos [facility] 04/25/2023 10:40:19 Influenza, MDCK, quadrivalent, PF 3 completed KWAKU Castellanos [facility] 04/25/2023 10:54:18 COVID-19, mRNA, LNP-S, PF, olivier-sucrose, 30 mcg/0.3 mL 3 completed KWAKU Castellanos [facility] 04/25/2023 10:54:18 COVID-19, mRNA, LNP-S, PF, olivier-sucrose, 30 mcg/0.3 mL 4 completed KWAKU Castellanos [facility] 02/15/2024 09:35:55 Influenza, split virus, trivalent, PF 4 completed KWAKU Castellanos [facility] 02/15/2024 09:35:55 Pneumococcal conjugate PCV20, polysaccharide OOV304 conjugate, adjuvant, PF 4 completed Not Available [facility] 01/28/2025 13:13:42 COVID-19, mRNA, LNP-S, PF, olivier-sucrose, 30 mcg/0.3 mL 5 completed Not Available [facility] 01/28/2025 13:13:42 Influenza, split virus, trivalent, preservative 9 completed Not Available [facility] 01/22/2023 10:46:04 Influenza, split virus, trivalent, preservative 2 completed Not Available [facility] 01/22/2023 10:46:04 Tdap 3 completed Not Available [facility] 01/22/2023 10:46:03 Influenza, split virus, trivalent, PF 5 completed KWAKU Castellanos [facility] 01/28/2025 13:28:55 Past Encounters Encounter ID Performer Location Encounter Start Date Encounter Closed Date Diagnosis/Indication Diagnosis SNOMED-CT Code Diagnosis ICD10 Code Diagnosis IMO Codes Diagnosis Note [id number] Gary Herrera MD Main Office [address] [place] [address] 01/06/2025 13:14:19 01/06/2025 14:54:13 Adult health examination 998726425 Z00.00 Patient was counseled on healthy diet, exercise and nutrition due to Body mass index is 24.9 kg/m . Last PSADate: 02/21/22Re sult: 1Plan: wants to screen order placed. 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 Follows Psych for mental Girish Bueno MD Fatigue 30503551 R53.83 R73.01 Hyperlipidemia 70480636 E78.5 Administra tion of viral vaccine 06300159 Z23 Nocturia 944725004 R35.1 [address] [facility] hypothyroidism 75761548 E03.8 [id number] Girish Herrera MD Main Office [address] [facility] [address] [place] [address] 01/22/2025 12:56:34 01/22/2025 14:08:01 Pain of hip region 72593649 M25.551 G89.29 [id number] cont prn Methocarba mol as dir by pcprec stop PT - no sig help recently - will get updated xrays and PMR eval Chronic low back pain 27 3539604 M54.50 G89.29 [id number] Health Concerns Section Related Observation LastModified by Organization Detai ls LastModified Time None Recorded Concern Status LastModified by Organization Details LastModified Time None Recorded Payers Encounter Date Sequence Insurance Name Policy Number Policy Gomez Covered Member ID Gomez Member ID Guarantor Name 01/22/2025 1 [facility] ([facility]) [id number] Robert Yanes [id number] Robert Yanes Notes Date Note Type Note Provider Name and Address Organization Details Recorded Time 01/22/2025 text/html Patient c/o right hip pain, which radiates across the lower back and into groin area. When he leans back in his bed, pain shoots into the testicles. It can also radiate down into the knee.He believes this is nerve-related. Methocarbamol helps, but pain is triggered with certain positions. reviewed recent pt casereviewed chart - recent PE c PCP 01.06.25, h/o chronic R hip pain - ? last seen by [facility] 04.20 - does not want to go back to them he is in PT 2x/wk - no recent PT notes to review - but appears he has seen PT > dozen timeslast xray R hip 02.18, lumbar mri 2013 Rebel Jordan PA-C [address] [address], [place], [address], [facility] [place]25[place] 10:29:41
--- OUTSIDE RECORDS SUMMARY | 2025-03-19 19:29 | XMS_ITS | Continuity of Care Document ---
Author Organization [facility], Main Office Address [address] [place] [address] Care Team Providers Care Power System Operator Name Role Phone GUME ESTRADA Business Services Sales Representative MARIANNE SHER Psychiatrist LUDWIN COLVIN Finish Carpenter GARY HERRERA Primary Care Provider DEMOTTE DERMATOLOGY Wine Sales Representative [phone] LESLIE MCINTYRE Banking Supervisor [facility] Physical Therapist Assessment Encounter Date Assessment Date Assessment LastModified by Organization Details LastModified Time 01/28/2025 01/28/2025 Cardiovascular: -Start rosuvastatin 10 mg daily. -Repeat LFTs and fasting lipid panel in 2 months. -Coronary artery calcium score ordered. -Continue lifestyle modifications (exercise, diet). Endocrine: -Subclinical hypothyroidism with positive thyroid antibodies. -Repeat thyroid function tests in 6 months. -Monitor for symptoms of hypothyroidism; discussed risk of progression to Rony s . Musculoskeletal / Pain management: -Lumbar spinal stenosis with right-sided radicular symptoms. -Initiated Medrol dose pack for acute symptom relief. -Provided hydrocodone 5 mg PRN for breakthrough pain, with counseling on sedation risks. -Advised no driving or operating heavy machinery until he knows how medication affects him, particularly since he also takes lorazepam prescribed by psychiatry. -Referral to physiatry already placed. -Encouraged consideration of physical therapy as mainstay of conservative treatment if symptoms improve. -Advised on red flag symptoms (worsening neurological deficits, loss of bladder/bowel control, severe weakness) that would warrant urgent evaluation or ER visit. Follow-up: -Follow up at annual -Return sooner if symptoms worsen or new concerns arise. augie Not available 01/28/2025 17:18:53 Plan of Treatment Reminders Order Date Submit Date Provider Last Modified By Organization Details Last Modified Time Details Appointments None recorded. Lab aspartate aminotrans ferase/ala nine aminotrans ferase, ratio, serum or plasma (OBS) 2024 augie [facility] (Centralized Electronic Ordering - All Locations), Patient Can Go To The Location Of Their Choice, [address] 14:04:34 lipid panel, serum 2024 augie [facility] (Centralized Electronic Ordering - All Locations), Patient Can Go To The Location Of Their Choice, [address] 14:04:34 Referral None recorded. Procedures None recorded. Surgeries None recorded. Imaging CT, coronary calcium score - self pay [facility] [address] [place], [address], 15:10:57 Medication Orders Medrol (Jose Eduardo) 4 mg tablets in a dose pack [address] [facility] [id number] [facility] [employer], [address] [place], [address], 14:04:38 hydrocodon e 5 mg-acetami nophen 325 mg tablet 2024 [id number] [facility] [employer], [address] [place], [address], 05:01:15 rosuvastat in 10 mg tablet 2024 [id number] [facility] [employer], [address] [place], [address], 14:04:38 Patient TargetsNo targets recorded. Patient Instructions Encounter Date Encounter Id Patient Instructions Last Modified By Organization Details Last Modified Time 01/28/2025 [id number] high cholesterol : care instructions augie Not available 01/28/2025 14:04:34 Reason for Referral None Reported. Results Created Date Observation Date Name Description Value Unit Range Abnormal Flag Note LastModifiedBy Organization Detail LastModifiedTime 01/07/2001/07/2025 CMP14 (REFL EX HGB A1C) glucose 96 mg/dL 70-99 normal Not Available [facility] ([facility]) [address] [facility] [place], [address], 01/07/2025 08:07:52 01/07/2001/07/2025 CMP14 (REFL EX HGB A1C) BUN 11 mg/dL 8-27 normal Not Available [facility] ([facility]) [address] [facility] [place], [address], 01/07/2025 08:07:52 01/07/2001/07/2025 CMP14 (REFL EX HGB A1C) creatinine 0.87 mg/dL 0.76-1 .27 normal Not Available [facility] ([facility]) [address] [place], [address], 01/07/2025 08:07:52 01/07/2001/07/2025 CMP14 (REFL EX HGB A1C) eGFR 97 mL/mi n/1.7 3 >59 normal Not Available [facility] ([facility]) [address] [facility], [place], [address], 01/07/2025 08:07:52 01/07/2001/07/2025 CMP14 (REFL EX HGB A1C) BUN/creatini ne ratio 13 10-24 normal Not Available [facility] ([facility]) [address] [place], [address], 01/07/2025 08:07:52 01/07/2001/07/2025 CMP14 (REFL EX HGB A1C) sodium 141 mmol/ L 134-14 4 normal Not Available [facility] ([facility]) [address] [place], [address], 01/07/2025 08:07:52 01/07/2001/07/2025 CMP14 (REFL EX HGB A1C) potassium 4.6 mmol/ L 3.5-5. 2 normal Not Available [facility] ([facility]) [address] [place], [address], 01/07/2025 08:07:52 01/07/2001/07/2025 CMP14 (REFL EX HGB A1C) chloride 101 mmol/ L 96-106 normal Not Available [facility] ([facility]) [address] [place], [address], 01/07/2025 08:07:52 01/07/2001/07/2025 CMP14 (REFL EX HGB A1C) carbon dioxide, total 23 mmol/ L 20-29 normal Not Available [facility] ([facility]) [address] [place], [address], 01/07/2025 08:07:52 01/07/2001/07/2025 CMP14 (REFL EX HGB A1C) calcium 9.5 mg/dL 8.6-10 .2 normal Not Available [facility] ([facility]) [address] [place], [address], 01/07/2025 08:07:52 01/07/2001/07/2025 CMP14 (REFL EX HGB A1C) protein, total 7.5 g/dL 6.0-8. 5 normal Not Available [facility] ([facility]) [address] [place], [address], 01/07/2025 08:07:52 01/07/2001/07/2025 CMP14 (REFL EX HGB A1C) albumin 4.6 g/dL 3.9-4. 9 normal Not Available [facility] ([facility]) [address] [place], [address], 01/07/2025 08:07:52 01/07/2001/07/2025 CMP14 (REFL EX HGB A1C) globulin, total 2.9 g/dL 1.5-4. 5 Not Available [facility] ([facility]) [address] [place], [address], 01/07/2025 08:07:52 01/07/2001/07/2025 CMP14 (REFL EX HGB A1C) bilirubin, total 0.6 mg/dL 0.0-1. 2 normal Not Available [facility] ([facility]) [address] [place], [address], 01/07/2025 08:07:52 01/07/2001/07/2025 CMP14 (REFL EX HGB [...] 48 - 129 Not Available [facility] ([facility]) [address] [place], [address], 01/07/2025 08:07:52 01/07/2001/07/2025 CMP14 (REFL EX HGB A1C) AST (SGOT) 18 IU/L 0-40 normal Not Available [facility] ([facility]) [address] [facility], [place], [address], 01/07/2025 08:07:52 01/07/2001/07/2025 CMP14 (REFL EX HGB A1C) ALT (SGPT) 17 IU/L 0-44 normal Not Available [facility] ([facility]) [address] [facility], [place], [address], 01/07/2025 08:07:52 01/07/2001/07/2025 CBC WITH DIFFE RENTI AL/PL ATELE T WBC 6.4 x10e3 /uL 3.4-10 .8 normal Not Available [facility] ([facility]) [address] [facility], [place], [address], 01/07/2025 08:07:53 01/07/2001/07/2025 CBC WITH DIFFE RENTI AL/PL ATELE T RBC 4.83 x10e6 /uL 4.14-5 .80 normal Not Available [facility] ([facility]) [address] [facility], [place], [address], 01/07/2025 08:07:53 01/07/2001/07/2025 CBC WITH DIFFE RENTI AL/PL ATELE T hemoglobin 14.9 g/dL 13.0-1 7.7 normal Not Available [facility] ([facility]) [address] [place], [address], 01/07/2025 08:07:53 01/07/2001/07/2025 CBC WITH DIFFE RENTI AL/PL ATELE T hematocrit 44.7 % 37.5-5 1.0 normal Not Available [facility] ([facility]) [address] [place], [address], 01/07/2025 08:07:53 01/07/2001/07/2025 CBC WITH DIFFE RENTI AL/PL ATELE T MCV 93 fL 79-97 normal Not Available [facility] ([facility]) [address] [facility], [place], [address], 01/07/2025 08:07:53 01/07/2001/07/2025 CBC WITH DIFFE RENTI AL/PL ATELE T MCH 30.8 pg 26.6-3 3.0 normal Not Available [facility] ([facility]) [address] [facility], [place], [address], 01/07/2025 08:07:53 01/07/2001/07/2025 CBC WITH DIFFE RENTI AL/PL ATELE T MCHC 33.3 g/dL 31.5-3 5.7 normal Not Available [facility] ([facility]) [address] [facility], [place], [address], 01/07/2025 08:07:53 01/07/2001/07/2025 CBC WITH DIFFE RENTI AL/PL ATELE T RDW 13.1 % 11.6-1 5.4 Not Available [facility] ([facility]) [address] [facility], [place], [address], 01/07/2025 08:07:53 01/07/2001/07/2025 CBC WITH DIFFE RENTI AL/PL ATELE T platelets 239 x10e3 /uL 150-45 0 normal Not Available [facility] ([facility]) [address] [facility], [place], [address], 01/07/2025 08:07:53 01/07/2001/07/2025 CBC WITH DIFFE RENTI AL/PL ATELE T neutrophils 70 % not estab. normal Not Available [facility] ([facility]) [address] [place], [address], 01/07/2025 08:07:53 01/07/2001/07/2025 CBC WITH DIFFE RENTI AL/PL ATELE T lymphs 22 % not estab. normal Not Available [facility] ([facility]) [address] [place], [address], 01/07/2025 08:07:53 01/07/20 25 01/07/2025 CBC WITH DIFFE RENTI AL/PL ATELE T monocytes 7 % not estab. normal Not Available [facility] ([facility]) [address] [place], [address], 01/07/2025 08:07:53 01/07/2001/07/2025 CBC WITH DIFFE RENTI AL/PL ATELE T eos 1 % not estab. normal Not Available [facility] ([facility]) [address] [place], [address], 01/07/2025 08:07:53 01/07/2001/07/2025 CBC WITH DIFFE RENTI AL/PL ATELE T basos 0 % not estab. normal Not Available [facility] ([facility]) [address] [place], [address], 01/07/2025 08:07:53 01/07/2001/07/2025 CBC WITH DIFFE RENTI AL/PL ATELE T immature cells PRINTING PRESS OPERATOR Not Available [facility] ([facility]) [address] [place], [address], 01/07/2025 08:07:53 01/07/2001/07/2025 CBC WITH DIFFE RENTI AL/PL ATELE T neutrophils (absolute) 4.5 x10e3 /uL 1.4-7. 0 normal Not Available [facility] ([facility]) [address] [place], [address], 01/07/2025 08:07:53 01/07/2001/07/2025 CBC WITH DIFFE RENTI AL/PL ATELE T lymphs (absolute) 1.4 x10e3 /uL 0.7-3. 1 normal Not Available [facility] ([facility]) [address] [place], [address], 01/07/2025 08:07:53 01/07/20 25 01/07/2025 CBC WITH DIFFE RENTI AL/PL ATELE T monocytes(ab solute) 0.5 x10e3 /uL 0.1-0. 9 normal Not Available [facility] ([facility]) [address] [facility], [place], [address], 01/07/2025 08:07:53 01/07/2001/07/2025 CBC WITH DIFFE RENTI AL/PL ATELE T eos (absolute) 0.1 x10e3 /uL 0.0-0. 4 normal Not Available [facility] ([facility]) [address] [facility], [place], [address], 01/07/2025 08:07:53 01/07/20 25 01/07/2025 CBC WITH DIFFE RENTI AL/PL ATELE T baso (absolute) 0.0 x10e3 /uL 0.0-0. 2 normal Not Available [facility] ([facility]) [address] [facility], [place], [address], 01/07/2025 08:07:53 01/07/2001/07/2025 CBC WITH DIFFE RENTI AL/PL ATELE T immature granulocytes 0 % not estab. Not Available [facility] ([facility]) [address] [place], [address], 01/07/2025 08:07:53 01/07/2001/07/2025 CBC WITH DIFFE RENTI AL/PL ATELE T immature grans (abs) 0.0 x10e3 /uL 0.0-0. 1 Not Available [facility] ([facility]) [address] [place], [address], 01/07/2025 08:07:53 01/07/20 25 01/07/2025 CBC WITH DIFFE RENTI AL/PL ATELE T NRBC PRINTING PRESS OPERATOR Not Available [facility] ([facility]) [address] [place], [address], 01/07/2025 08:07:53 01/07/20 25 01/07/2025 CBC WITH DIFFE MIRA AL/PL ATELE T hematology comments: PRINTING PRESS OPERATOR Not Available [facility] ([facility]) [address] [facility] [place], [address], 01/07/2025 08:07:53 01/07/20 25 01/07/2025 LIPID PANEL cholesterol, total 205 mg/dL 100-19 9 above high normal Not Available [facility] ([facility]) [address] [place], [address], 01/07/2025 08:07:54 01/07/20 25 01/07/2025 LIPID PANEL triglyceride s 101 mg/dL 0-149 normal Not Available [facility] ([facility]) [address] [place], [address], 01/07/2025 08:07:54 01/07/20 25 01/07/2025 LIPID PANEL HDL cholesterol 41 mg/dL >39 normal Not Available [facility]) [address] [place], [address], 01/07/2025 08:07:54 01/07/20 25 01/07/2025 LIPID PANEL VLDL cholesterol hayley 18 mg/dL 5-40 Not Available [facility] ([facility]) [address] [place], [address], 01/07/2025 08:07:54 01/07/20 25 01/07/2025 LIPID PANEL LDL chol calc ([facility]) 146 mg/dL 0-99 above high normal Not Available [facility] ([facility]) [address] [place], [address], 01/07/2025 08:07:54 01/07/20 25 01/07/2025 LIPID PANEL LDL calc comment: PRINTING PRESS OPERATOR Not Available [facility] ([facility]) [address] [place], [address], 01/07/2025 08:07:54 01/07/2001/07/2025 TSH+F REE T4 TSH 5.520 uIU/m L 0.450- 4.500 above high normal Not Available [facility] ([facility]) [address] [place], [address], 01/07/2025 10:06:16 01/07/2001/07/2025 TSH+F REE T4 T4,free(dire ct) 1.01 NG/dL 0.82-1 .77 normal Not Available [facility] ([facility]) [address] [place], [address], 01/07/2025 10:06:16 01/07/2001/06/2025 PSA TOTAL (REFL EX TO FREE) reflex criteria Commen t The perce nt free PSA is perfo rmed on a refle x basis only when the total PSA is betwe en 4.0 and 10.0 ng/mL . Not Available [facility] ([facility]) [address] [place], [address], 01/07/2025 10:06:17 01/07/2001/07/2025 PSA TOTAL (REFL EX [...] kits canno t be used inter frederick eameaghany . Resul ts canno t be inter prete d as absol angel luis evide nce of the prese nce or absen ce of malig nant disea se. Not Available [facility] ([facility]) [address] [facility], [place], [address], 01/07/2025 10:06:17 01/07/20 25 01/07/2025 THYRO GLOBU SUNDEEP ANTIB FINESSE thyroglobuli n antibody 55.3 IU/mL 0.0-0. 9 above high normal Thyro globu sundeep Antib finesse measu red by Annel Gant er Metho dolog y It shoul d be noted that the prese nce of thyro globu sundeep antib odies may not be patho genic nor diagn ostic , espec ially at very low level s. The assay leodan actur er has found that four perce nt of indiv idual s witho ut evide nce of thyro id disea se or autoi mmuni ty will have posit javier TgAb level s up to 4 IU/mL . Not Available [facility] ([facility]) [address] [facility], [place], [address], 01/07/2025 10:06:17 01/07/2001/08/2025 THYRO ID PEROX IDASE (TPO) AB thyroid peroxidase (tpo) Ab >600 IU/mL 0-34 above high normal Not Available [facility] ([facility]) [address] [facility], [place], [address], 01/08/2025 08:07:57 01/07/2001/07/2025 MUKUL EN AUTHO RIZAT ION written authorizatio n Dioni t Mukul en Autho rizat ion Recei jero. Autho rizat ion recei jero from [facility] MICHELLE HERRERA for Link Reque st on 01-07 Logge d by Roderick Bunch Not Available [facility] ([facility]) [address] [facility], [place], [address], 01/08/2025 08:07:57 01/27/2001/25/2025 XR, hip, unila teral [...] fractu re or disloc ation. Examin ation [id number]. Thank you for mckenna portillo me to partic ipate in the care of this patien t. WSN: [id number] Orderrufino ng Physic portia: Jimmy Jordan Dictat ed By: Christian Rodriguez MD Dictat ed Date/T ivania: 4:40 pm Review ed By: Christian Rodriguez MD Signed By: Christian Rodriguez MD Signed Date/T ivania: 4:40 pm Transc ribed By: GORDY Transc ribed Date/T ivania: 4:40 pm Patien t Class: Outpat ient [facility] (Outpt Imaging) [address] [place] [address], [address], 01/26/2025 19:11:52 01/27/20 25 01/25/2025 XR, lumba [...] fractu re or disloc ation. Examin ation [id number]. Thank you for mckenna portillo me to partic ipate in the care of this patien t. WSN: [id number] Orderi ng Physic portia: Jimmy Jordan Dictat ed By: Christian Rodriguez MD Dictat ed Date/T ivania: 4:41 pm Review ed By: Christian Rodriguez MD Signed By: Christian Rodriguez MD Signed Date/T ivania: 4:41 pm Transc ribed By: GORDY Transc ribed Date/T ivania: 4:41 pm Patien t Class: Outpat ient [facility] (Outpt Imaging) [address] [place], [address], 01/26/2025 19:11:52 Result Notes None recorded. Problems Name Problem SNOMED Code Status Onset Date Resolution Date Notes Provider Name and Address Organization Details Recorded Time Anxiety state 759726352 Active Not Available [facility] 2 12:56:36 Patient status finding 307242229 Completed 04/03/2016 KWAKU Velazquez, [facility] 6 09:38:58 Congenit al insuffic iency of aortic valve 39988759 Active Not Available [facility] 2 12:56:36 Screenin g for malignan t neoplasm of colon Completed 04/03/2016 KWAKU Velazquez, [facility] 6 09:39:07 Follow-u p encounte r Completed 04/03/2016 KWAKU Velazquez [facility] 6 09:39:11 Malaise and fatigue 117387346 Completed 04/03/2016 KWAKU Velazquez [facility] 6 09:39:04 Hyperlip idemia 78685732 Active Not Available [facility] 2 12:56:36 Irritabl e bowel syndrome 24380277 Completed 04/25/2023 Gary Herrera MD [address] [facility] [address], [place], [address] , [facility] 3 11:24:49 Major depressi on single episode, in partial remissio n 94376930 Active Not Available [facility] 2 12:56:36 Adult health examinat ion Completed 04/03/2016 KWAKU Velazquez, [facility] 6 09:39:01 Administ ration of diphther ia and tetanus vaccine Completed 02/19/2017 KWAKU Velazquez, [facility] 7 13:33:57 Low back pain 953290535 Completed 02/21/2022 Gary Herrera MD [address], [place], [address] , [facility] 2 11:35:32 Tinea corporis 22491880 Completed 02/21/2022 Gary Herrera MD [address], [place], [address] , [facility] 2 11:35:53 Lower abdomina l pain 26759593 Completed 02/19/2017 KWAKU Velazquez, [facility] 7 13:33:48 Disorder of lumbar disc 324675051 Active Not Available [facility] 2 12:56:36 Tinnitus 65431554 Completed 04/03/2016 KWAKU Velazquez, [facility] 6 09:39:20 Cyst of epididym is 73502708 Completed 04/26/2018 David Cisse MD [address], [place], [address] , [facility] 8 11:47:37 Swallowi ng painful 33943354 Completed 04/03/2016 KWAKU Velazquez, [facility] 6 09:39:15 Fatigue 95160473 Completed 04/03/2016 KWAKU Velazquez, [facility] 6 09:39:25 Bilatera l trochant jon bursitis [id number] 550543 Active Minerva porter MA null, [facility] 5 14:07:34 Interver tebral disc prolapse 01732709 Active L5-S1 Minerva porter MA null, [facility] 5 14:12:52 Anemia 024169812 Completed 201211/11/2013 RECORDED 06/19/19 13 9:14AM BY WASHINGTON BARNETT MA, ANNOTATI ON/ADDEN DUM Not Available [facility] 4 14:39:31 Anxiety state 174077913 Completed 201211/11/2013 IMPRESSI ON: FOLLOWED BY PSYCH; RECORDED 06/19/19 13 9:14AM BY WASHINGTON BARNETT MA, ANNOTATI ON/ADDEN DUM [facility] Available [facility] 4 14:39:31 Congenit al insuffic iency of aortic valve 88321141 Completed 201211/11/2013 RECORDED 06/19/19 13 9:14AM BY WASHINGTON BARNETT MA, ANNOTATI ON/ADDEN DUM Not Available [facility] 4 14:39:32 Pneumoni a 656497093 Completed 201211/11/2013 RECORDED 06/19/19 13 9:14AM BY WASHINGTON BARNETT MA, ANNOTATI ON/ADDEN DUM Not Available [facility] 4 14:39:32 Irritabl e bowel syndrome 97360596 Completed 201211/11/2013 RECORDED 06/19/19 13 9:14AM BY WASHINGTON BARNETT MA, ANNOTATI ON/ADDEN DUM Gary Herrera MD [address] [facility] [address], [place], [address] , [facility] 3 11:24:49 Lateral epicondy litis 249676844 Completed 201211/11/2013 RECORDED 06/19/19 13 9:14AM BY WASHINGTON BARNETT MA, ANNOTATI ON/ADDEN DUM Not Available [facility] 4 14:39:32 Adult health examinat ion Completed 201211/11/2013 RECORDED 06/19/19 13 9:14AM BY WASHINGTON BARNETT MA, ANNOTATI ON/ADDEN DUM KWAKU Velazquez [place] - [facility] 6 09:39:01 Anemia 605068692 Completed 201212/04/2013 RECORDED 06/19/19 13 9:14AM BY WASHINGTON BARNETT MA, ANNOTATI ON/ADDEN DUM Not Available [facility] 4 12:53:34 Pneumoni a 465492043 Completed 201212/04/2013 RECORDED 06/19/19 13 9:14AM BY WASHINGTON BARNETT MA, ANNOTATI ON/ADDEN DUM Not Available [facility] 4 12:53:35 Lateral epicondy litis 922446229 Completed 201212/04/2013 RECORDED 06/19/19 13 9:14AM BY WASHINGTON BARNETT MA, ANNOTATI ON/ADDEN DUM Not Available [facility] 4 12:53:35 Anemia 660431635 Completed 201212/05/2013 RECORDED 06/19/19 13 9:14AM BY WASHINGTON BARNETT MA, ANNOTATI ON/ADDEN DUM Not Available [facility] 4 03:48:35 Pneumoni a 424677909 Completed 201212/05/2013 RECORDED 06/19/19 13 9:14AM BY WASHINGTON BARNETT MA, ANNOTATI ON/ADDEN DUM Not Available [facility] 4 03:48:35 Lateral epicondy litis 490947381 Completed 201212/05/2013 RECORDED 06/19/19 13 9:14AM BY WASHINGTON BARNETT MA, ANNOTATI ON/ADDEN DUM Not Available [facility] 4 03:48:35 Acute upper respirat ory infectio n 75902254 Completed 201211/11/2013 IMPRESSI ON: LUNGS CLEAR TODAY AND AFEBRILE , RECOMMEN D SUPPORTI VE TX, WILL CALL BACK FOR CXR IF NOT IMPROVIN G OR WORSENIN G.; RECORDED 07/30/19 13 12:56PM BY MINERVA GUERRERO MA, ANNOTATI ON/ADDEN DUM Not Available [facility] 4 14:39:33 Acute upper respirat ory infectio n 56095405 Completed 201212/04/2013 IMPRESSI ON: LUNGS CLEAR TODAY AND AFEBRILE , RECOMMEN D SUPPORTI VE TX, WILL CALL BACK FOR CXR IF NOT IMPROVIN G OR WORSENIN G.; RECORDED 07/30/19 13 12:56PM BY MINERVA GUERRERO MA, ANNOTATI ON/ADDEN DUM Not Available [facility] 4 12:53:35 Acute upper respirat ory infectio n 52094846 Completed 201212/05/2013 IMPRESSI ON: LUNGS CLEAR TODAY AND AFEBRILE , RECOMMEN D SUPPORTI VE TX, WILL CALL BACK FOR CXR IF NOT IMPROVIN G OR WORSENIN G.; RECORDED 07/30/19 13 12:56PM BY MINERVA GUERRERO MA, ANNOTATI ON/ADDEN DUM Not Available [facility] 4 03:48:35 Spinal stenosis of lumbosac ral region 413954765 Active 2013 MRI results Minerva porter MA null, [facility] 5 14:12:25 Subclini hayley hypothyr oidism 94435181 Completed 201704/26/2023 Gary Herrera MD [address], [place], [address] , [facility] 3 22:00:43 Pain of left shoulder joint [id number] 150743 Completed 201904/25/2023 Gary Herrera MD [address], [place], [address] , [facility] [place] 3 11:24:52 Decrease d range of shoulder movement 609505130 Active 2019 [facility] 2 12:56:36 Cervical radiculo kenia 11703020 Completed 202004/25/2023 Gary Herrera MD [address], [place], [address] , [facility] 3 11:23:11 Lichen planus of tongue 354975706 Active 2021 tongue biopsy 09/2021 Not Available [facility] 2 12:56:36 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 06449061934 9105 Active 2021 [facility] 2 13:26:36 Environm ental allergy 400398540 Active 2022 Rebel Jordan PA-C [address], [place], [address] , [facility] 3 11:51:39 History of actinic keratosi s 51075407332 04 Active 2022 Gary Herrera MD [address], [place], [address] , [facility] 3 22:03:25 Chronic low back pain 442864693 Active 2023 Girish Herrera MD [address], [place], [address] , [facility] 4 09:14:03 Osteoart hritis of right hip joint 09113147543 9107 Active 2023 COURTNEY Kelley [address] [facility] [address], [place], [address] , [facility] 4 09:51:59 Problem Notes None recorded. Procedures Surgical History Date Name Laterality Status Provider Name and Address Organization Details Recorded Time 05/10/19 23 excision of benign lesion of trunk completed Minerva calderon MA [facility] 07/03/2022 09:19:53 07/11/19 19 Colonoscopy completed Chinyere Chavez [facility] 07/10/2018 15:39:14 07/07/19 18 Chronic Pain Assessment completed Minerva Ferrari-Ben calderon MA [facility] 07/06/2017 11:45:57 12/23/19 17 Chronic Pain Assessment completed Minerva Ferrari-Ben os, [place] [facility] 12/22/2016 09:36:59 08/18/19 17 Chronic Pain Assessment completed Minerva Joynerivan-Ben yumiko, KWAKU [facility] 08/17/2016 13:37:09 08/12/19 16 Echo Transthoracic completed Minerva Ferrari-Bengarry calderon MA [facility] 08/14/2015 10:38:23 04/30/18 92 Repair nasal septum defect completed Minerva calderon MA [facility] 06/07/2015 13:33:55 04/30/18 68 Tonsillectomy completed Stephanie Bey MA [facility] 09/13/2020 13:06:03 Imaging Results None recorded. Procedure Notes None recorded. Medical Equipment None Reported. Allergies Allergen ID Allergen Name Allergen Category Reaction Reaction Severity Criticality Documentation Date Start Date Code Code System Note Provider Name and Address Organization Details Recorded Time 76926 tramadol medicatio n other Not available Not available 06/16/20142022 61407 RxNorm unabl e to urina te SANTIAGO Albarran [facility] 3 09:13:38 2812 Shellfish (substanc e) food,medi cation other respirato ry distress Not available Not available [facility] 11/11/20131994 28268 9006 SNOMED SANTIAGO Albarran [facility] 3 09:15:13 78273 duloxetin e medicatio n other Not available Not available 01/17/20212022 51366 RxNorm SANTIAGO Albarran [facility] 3 09:12:46 Medications Name Sig Start [...] Updated DateTime 5 183.01 cm 24.8 kg/m2 31273.4 g 96 /min 99 % 98.4 [degF] 135/79 mm[Hg] [facility] [place] 5 13:26:52 Social History Question Answer Notes LastModified by Organizat ion Details LastModified Time Tobacco Smoking Status [facility] [place] 09/13/2020 13:05:45 Do You Have An Advance Directive? Yes [email or web address] Information not available 03/17/2022 Is Blood Transfusion [...] 06/07/2015 When Did You Quit Smoking? 16+yearssince lastcijessica [email or web address] Information not available 09/13/2020 Live Alone Or With Others? With Others (Robert) And Fidxmg-wy-pc w, Brother Brant And Chris brennan Information not available 04/25/2023 Do You Take [...] Or Greater Than 100 Degrees Fahrenheit? No [email or web address] Information not available 11/24/2019 Are You Or Anyone In Your Household A Health Care Provider Or Emergency Responder? No [email or web address] Information not available 11/24/2019 To The Best Of Your Knowledge Have You Been In Close Proximity To Any Individual Who Tested Positive For COVID-19? No [email or web address] Information not available 11/24/2019 Have You Recently Traveled To A COVID-19 High Risk Area Or Gathering In The Last 10 Days? No [email or web address] Information not available 09/13/2020 What Was The Date Of Your Most Recent Tobacco Screening? 01/06/2025 Information not available 01/06/2025 How Many Children Do You Have? 3 Son And 2 Daughters Information not available 06/07/2015 What Is Your Current Pack Years? 10packyears [email or web address] Information not available 03/17/2022 Do You Use Protection During Sex? Always [email or web address] Information not available 09/13/2020 Do You Use Your Seat Belt Or Car Seat Routinely? Yes Information not available 02/21/2022 Seat Belts Used Routinely Yes [email or web address] Information not available 03/17/2022 Are You Sexually Active? Yes Information not available 06/07/2015 Smoke Alarm In Home Yes Information not available 03/17/2022 Do You Have Smoke And Carbon Monoxide Detectors In Your Home? Yes Information not available 02/21/2022 At What Age Did You Start Smoking Tobacco? 19 Information not available 09/13/2020 Are You Passively Exposed To Smoke? No Information not available 06/07/2015 How Much Tobacco Do You Smoke? 1 PPW Information not available 02/21/2022 Do You Use Sunscreen Routinely? Yes [email or web address] Information not available 09/13/2020 How Many Years Have You Smoked Tobacco? 1 Information not available 02/21/2022 Sex: Unknown Functional Status Question Answer Note LastModified by Organizat ion Details LastModified Time Do you use any illicit or recreational drugs? No [email or web address] Information not available 03/17/2022 Do you or have you ever used any other forms of tobacco or nicotine? No [email or web address] Information not available 03/17/2022 What is your level of alcohol consumption? None Information not available 06/07/2015 Do you or have you ever used smokeless tobacco? Never used smokeless tobacco Information not available 08/13/2019 Are you currently employed? Yes Information not available 06/07/2015 Are you able to walk independently without assistance or assistive devices? YESWOREST [email or web address] Information not available 03/17/2022 Are you able to care for yourself independently? 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 Never used electronic cigarettes Information not available 03/17/2022 What is your exercise level? None afraid to return to the gym Information not available 02/21/2022 Mental Status None recorded. Family History Relationship Description Onset Age of this Age Resolved Age Notes LastModified by Organization Details LastModified Time Mother Hypercholest erderekia phelmuth Not available 2015 15:09:41 Father Essential hypertension 84 [email or web address] Not available 11:31:49 Father Chronic deafness [email or web address] Not available 03/17 11:31:49 Father Hypercholest erolemia phelmuth Not available 2015 15:09:41 Father Carcinoma in situ of skin [email or web address] Not available 11:31:49 Sister Essential hypertension [email or web address] Not available 11:31:49 Sister Hypothyroidi sm [email or web address] Not available 03/17 11:31:49 Sister Asthma phelmuth Not available 0 12/07/2015 15:09:41 Sister Hypercholest erolemia phelmuth Not available 2015 15:09:41 Daughter Obsessive-co mpulsive disorder 14 [email or web address] Not available 03/17 11:31:49 Daughter Depressive disorder 14 [email or web address] s Not available 01/17/2021 11:30:36 Medical History Condition Response Depression Y Anxiety Disorder Y Arthritis Y Heart Problems Y Acne Y Allergies Y Chicken Pox Y Immunizations Vaccine Type Date Status Note Provider Nam e and Address Organization Details Recorded Time Influenza, split virus, trivalent, preservative 7 completed Not Available [facility] 05/25/2023 08:37:50 Influenza, adjuvanted, trivalent, PF 8 completed Not Available [facility] 05/25/2023 08:37:50 varicella 8 completed Not Available [facility] 01/22/2023 10:46:03 Influenza, split virus, trivalent, preservative 9 completed Not Available [facility] 05/25/2023 08:37:50 Influenza, split virus, trivalent, preservative 0 completed Not Available [facility] 01/22/2023 10:46:03 COVID-19, mRNA, LNP-S, PF, 30 mcg/0.3 mL dose 1 completed Not Available [facility] 01/22/2023 10:46:03 COVID-19, mRNA, LNP-S, PF, 30 mcg/0.3 mL dose 1 completed Not Available [facility] 01/22/2023 10:46:03 COVID-19, mRNA, LNP-S, bivalent, PF, 30 mcg/0.3 mL dose 2 completed Not Available [facility] 01/22/2023 10:46:03 Influenza, MDCK, quadrivalent, PF 1 completed Not Available [facility] 01/22/2023 10:46:03 Influenza, split virus, quadrivalent, PF 8 completed Not Available [facility] 01/22/2023 10:46:04 Influenza, MDCK, quadrivalent, PF 2 completed Not Available [facility] 01/22/2023 10:46:03 Influenza, split virus, quadrivalent, PF 9 completed Not Available [facility] 01/22/2023 10:46:04 zoster recombinant 8 completed Not Available [facility] 01/22/2023 10:46:03 Influenza, MDCK, quadrivalent, PF 7 completed Not Available [facility] 01/22/2023 10:46:03 zoster recombinant 8 completed Not Available [facility] 01/22/2023 10:46:03 Influenza, split virus, trivalent, preservative 1 completed Not Available [facility] 01/22/2023 10:46:04 COVID-19, mRNA, LNP-S, PF, 30 mcg/0.3 mL dose, olivier-sucrose 2 completed Not Available [facility] 01/22/2023 10:46:03 COVID-19, mRNA, LNP-S, PF, 30 mcg/0.3 mL dose 1 completed Not Available [facility] 01/22/2023 10:46:03 Influenza, split virus, quadrivalent, PF 5 completed Not Available [facility] 01/22/2023 10:46:04 Influenza, split virus, trivalent, preservative 4 completed Not Available [facility] 01/22/2023 10:46:03 RSV, recombinant, protein subunit RSVpreF, adjuvant reconstituted, 0.5 mL, PF 3 [facility] 04/25/2023 10:40:19 Influenza, MDCK, quadrivalent, PF 3 [facility] 04/25/2023 10:54:18 COVID-19, mRNA, LNP-S, PF, olivier-sucrose, 30 mcg/0.3 mL 3 completed [facility] 04/25/2023 10:54:18 COVID-19, mRNA, LNP-S, PF, olivier-sucrose, 30 mcg/0.3 mL 4 completed [facility] 02/15/2024 09:35:55 Influenza, split virus, trivalent, PF 4 completed GumeKWAKU Avendaño, [facility] 02/15/2024 09:35:55 Pneumococcal conjugate PCV20, polysaccharide TJN150 conjugate, adjuvant, PF 4 completed Not Available [facility] 01/28/2025 13:13:42 COVID-19, mRNA, LNP-S, PF, olivier-sucrose, 30 mcg/0.3 mL 5 completed Not Available [facility] 01/28/2025 13:13:42 Influenza, split virus, trivalent, preservative 9 completed Not Available [facility] 01/22/2023 10:46:04 Influenza, split virus, trivalent, preservative 2 completed Not Available [facility] 01/22/2023 10:46:04 Tdap 3 completed Not Available [facility] 01/22/2023 10:46:03 Influenza, split virus, trivalent, PF 5 completed KWAKU Castellanos MA [facility] 01/28/2025 13:28:55 Past Encounters Encounter ID Performer Location Encounter Start Date Encounter Closed Date Diagnosis/Indication Diagnosis SNOMED-CT Code Diagnosis ICD10 Code Diagnosis IMO Codes Diagnosis Note [id number] Gary Herrera MD Main Office [address] [facility] [address] [facility] [place] [address] 01/06/2025 13:14:19 01/06/2025 14:54:13 Adult health examination 133916909 Z00.00 Patient was counseled on healthy diet, [...] depr ession single episode, 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 Follows Psych for mental Girish Bueno MD Fatigue 65417039 R53.83 R73.01 Hyperlipidemia 04031006 E78.5 Administra tion of viral vaccine 17625943 Z23 Nocturia 596747700 R35.1 [address] [facility]clin[address] hypothyroidism 17745938 E03.8 12668 [id number] Girish Herrera MD Main Office [address] [facility] [address] [facility] [place] [address] 01/22/2025 12:56:34 01/22/2025 14:08:01 Pain of hip region 86807491 M25.551 G89.29 39790015 cont prn Methocarba mol as dir by pcprec stop PT - no sig help recently - will get updated xrays and PMR eval Chronic low back pain 27 5520298 M54.50 G89.29 [id number] Gary Herrera MD Main Office [address] [facility] [address] [facility] [place] [id number] 01/28/2025 13:08:34 01/28/2025 14:13:41 Hyperlipidemia 37518646 E78.5 63983091 Needs infl uenza immunization 100332444 Z23 19 YEARS AND OLDER ONLY Chronic low back pain 27 7862519 M54.50 G89.29 [id number] Health Concerns Section Related Observation LastModified by Organization Detai ls LastModified Time None Recorded Concern Status LastModified by Organization Details LastModified Time None Recorded Payers Encounter Date Sequence Insurance Name Policy Number Policy Gomez Covered Member ID Gomez Member ID Guarantor Name 01/28/2025 1 [facility] [id number] 23 Robert Yanes [id number] Robert Yanes Notes Date Note Type Note Provider Name and Address Organization Details Recorded Time 01/28/2025 text/html Patient presents today to review recent lab results. His ASCVD risk score was elevated at approximately 9.4%. After a detailed discussion regarding cardiovascular risk and the role of statin therapy, he agreed to start rosuvastatin 10 mg daily. He understands the importance of monitoring and will repeat liver function tests and a fasting lipid panel in 2 months. We also discussed the role and utilization of coronary artery calcium scoring; he is open to this, and it has been ordered. He remains physically active, has implemented lifestyle modifications, and has no personal history of coronary artery disease, peripheral arterial disease, or other cardiac disease. He does have a family history of high cholesterol, but no known premature coronary artery disease. He has no history of hypertension, is not not obese, but did smoke many years ago. We also briefly reviewed his subclinical hypothyroidism. He has positive thyroid antibodies, and I cautioned him regarding the risk of progression to Rony s thyroiditis, which may eventually require thyroid medication. Repeat thyroid function testing has already been ordered for 6 months. He is currently asymptomatic with respect to thyroid function. In addition, the patient reports persistent low back pain with radiation down the left leg, which appear consistent with lumbar spinal stenosis, which was previously suspected by my colleague. He states the pain is severe, interfering with his ability to drive and walk. He could not tolerate muscle relaxants. Today s visit was not scheduled for pain management, but given his current level of discomfort, we addressed this issue to a limited extent. Gary Herrera MD [address] [address], [place], [address], [facility] 01/28/2025 17:19:10
--- OUTSIDE RECORDS SUMMARY | 2025-03-19 19:29 | XMS_ITS | Encounter Summary ---
Author Organization [facility] Address [address] [place] [address] Care Team Providers Care Adjunct Philosophy Faculty Name Role Phone Bhupendra Smithrufino Primary Care Provider [phone] Reason for Visit * Reason Onset Date Comments Earle/Question Immuno appt 01/29/2023 Encounter Details Date Type Department Care Team (Late st Contact Info) Description 01/29/2023 Telephone [facility] [address] [place] [id number] Telephone Intake, Staff Earle/Question Immuno appt Social History Tobacco Use Types Packs/Day Years Used Date Smoking Tobacco: Never Assessed Sex and Gender Information Value Date Recorded Sex Assigned at Male 01/15/2023 9:03 AM EDT Legal Sex Male 5:13 PM EDT Gender Identity Male 01/15/2023 9:03 AM EDT Sexual Orientation Straight 01/15/2023 9: 03 AM EDT documented as of this encounter Miscellaneous Notes * Telephone Encounter - Wanda Landers - 01/29/2023 3:09 PM EDT Patient of Demetria Og has his first immuno appt scheduled on 02/13. He had RSV on 01/23, Covid scheduled 02/06, flu shot sched 02/20. His pharmacy told him to check to see if he should keep the 02/13 immuno appt or move it out. He can be reached at [phone] documented in this encounter Plan of Treatment Not on file documented as of this encounter Visit Diagnoses Not on filedocumented in this encounter Care Teams Adjunct Philosophy Faculty Relationship Specialty Start Date End Date Gary Smith [address] [address] PCP - General Family Medicine 12/21/22 documented as of this encounter
--- OUTSIDE RECORDS SUMMARY | 2025-03-19 19:29 | XMS_ITS | Data Portability ---
Author Organization [facility], Main Office Address [address] [place] [address] Care Team Providers Care Developer Support Engineer Name Role Phone DEMETRIA ESTRADA Relationship Advisor [phone] MARIANNE SHER Psychiatrist LUDWIN COLVIN Diesel Service Technician ALLIE HERRERA Primary Care Provider [facility] Painter Decorator [phone] LESLIE MCINTYRE Senior Construction Estimator [facility] Physical Therapist Assessment Encounter Date Assessment Date Assessment LastModified by Organization Details LastModified Time 05/25/2023 05/25/2023 This service was provided using telemedicine. Patient consented to video & audio visit Patient was located in the [facility]. Provider was located in the office. No other persons participated in the telemedicine visit except for the patient unless otherwise indicated here. Total time of visit was 8 minutes. [email or web address] Not available 05/25/2023 09:11:27 01/28/2025 01/28/2025 Cardiovascular: -Start rosuvastatin 10 mg [...] Details Last Modified Time Details Appointments None record ed. Lab aspart ate aminot ransfe rase/a lanine aminot ransfe rase, ratio, serum or plasma (OBS) 2024 025 [facility] (Centralized Electronic Ordering - All Locations), Patient Can Go To The Location Of Their Choice, 14:04:34 lipid panel, serum 2024 025 [facility] (Centralized Electronic Ordering - All Locations), Patient Can Go To The Location Of Their Choice, 14:04:34 TSH + free T4, serum 2024 025 [facility] (Centralized Electronic Ordering - All Locations), Patient Can Go To The Location Of Their Choice, 10:06:16 thyrog lobuli n Ab, serum 2024 025 [facility] (Centralized Electronic Ordering - All Locations), Patient Can Go To The Location Of Their Choice, 10:06:17 PSA, serum or plasma 2024 025 [facility] (Centralized Electronic Ordering - All Locations), Patient Can Go To The Location Of Their Choice, 10:06:17 lipid panel, serum 2024 025 [facility], [address] [facility] [address], [facility], [place], [address], 08:07:54 CBC w/ auto diff 2024 025 [facility], [address], [address], [place], [address], 08:07:53 CMP, serum or plasma 2024 [facility], [address], [address], [place], [address], 08:07:53 Referral physic al medici ne and rehabi litati on referr al - please eval for R hip and LBP - thanks ! 2024 joe Elise MD, [address] [facility], [facility] [address], [place], [address], 08:48:53 Procedures None record ed. Surgeries None record ed. Imaging CT, alcala ry calciu m score - self pay 2024 [facility], [address] [place], [address], 15:10:57 XR, lumbar spine 2024 [facility], [address] [place], [address], 16:44:37 XR, hip, unilat eral, 2 or 3 view 2024 [facility], [address] [place], [address], 16:43:47 Medication Orders Medrol (Jose Eduardo) 4 mg tablet s in a dose pack 2024 [id number] [employer], [address] [place], [address], 14:04:38 hydroc odone 5 mg-remigio tamino phen 325 mg tablet 2024 [id number], [address] [place], [address], 05:01:15 rosuva statin 10 mg tablet 2024 025 [facility], [address] [facility], [address], 14:04:38 predni sone 20 mg tablet 2023 024 [id number], [address] [facility], [address], 13:42:07 predni sone 20 mg tablet 2023 024 [id number], [address] [place], [address], 13:42:07 Patient TargetsNo targets recorded. Patient Instructions Encounter Date Encounter Id Patient Instructions Last Modified By Organization Details Last Modified Time 05/25/2023 [id number] sacroiliac pain: exercises [email or web address] Not available 05/25/2023 09:15:07 02/15/2024 [id number] hip arthritis: exercises jthabet Not available 02/15/2024 10:07:39 hip arthritis: care instructions jthabet Not available 02/15/2024 10:07:39 01/06/2025 [id number] Well Visit 50 to 65: Care Instructions ckokar Not available 01/06/2025 14:03:37 01/22/2025 [id number] Follow up if no improvement or if symptoms worsen. pmadden Not available 01/22/2025 13:24:16 01/28/2025 [id number] high cholesterol: care instructions ckokar Not available 01/28/2025 14:04:34 Reason for Referral Physical Medicine And Rehabi litation Referral for Pain of hip region please eval for R hip and LBP - thanks! Referring Physician: Rebel Jordan, Internal Medicine, Encounter Date: 01/22/2025 Results Created Date Observation Date Name Description Value Unit Range Abnormal Flag Note LastModifiedBy Organization Detail LastModifiedTime 01/07/2001/07/2025 CMP14 (REFL EX HGB A1C) glucose 96 mg/dL 70-99 normal Not Available [facility] ([facility]) [address] [facility], [place], [address], 01/07/2025 08:07:52 01/07/2001/07/2025 CMP14 (REFL EX HGB A1C) BUN 11 mg/dL 8-27 normal Not Available [facility] ([facility]) [address] [place], [address], 01/07/2025 08:07:52 01/07/2001/07/2025 CMP14 (REFL EX HGB A1C) creatinine 0.87 mg/dL 0.76-1 .27 normal Not Available [facility] ([facility]) [address] [place], [address], 01/07/2025 08:07:52 01/07/2001/07/2025 CMP14 (REFL EX HGB A1C) eGFR 97 mL/mi n/1.7 3 >59 normal Not Available [facility] ([facility]) [address] [place], [address], 01/07/2025 08:07:52 01/07/2001/07/2025 CMP14 (REFL EX HGB A1C) BUN/creatini ne ratio 13 10-24 normal Not Available [facility] ([facility]) [address] [place], [address], 01/07/2025 08:07:52 01/07/2001/07/2025 CMP14 (REFL EX HGB A1C) sodium 141 mmol/ L 134-14 4 normal Not Available [facility] ([facility]) [address] [place], [address], 01/07/2025 08:07:52 01/07/20 25 01/07/2025 CMP14 (REFL EX HGB A1C) potassium 4.6 mmol/ L 3.5-5. 2 normal Not Available [facility] ([facility]) [address] [place], [address], 01/07/2025 08:07:52 01/07/2001/07/2025 CMP14 (REFL EX HGB A1C) chloride 101 mmol/ L 96-106 normal Not Available [facility] ([facility]) [address] [place], [address], 01/07/2025 08:07:52 01/07/2001/07/2025 CMP14 (REFL EX HGB A1C) carbon dioxide, total 23 mmol/ L 20-29 normal Not Available [facility] ([facility]) [address] [place], [address], 01/07/2025 08:07:52 01/07/2001/07/2025 CMP14 (REFL EX HGB A1C) calcium 9.5 mg/dL 8.6-10 .2 normal Not Available [facility] ([facility]) [address] [place], [address], 01/07/2025 08:07:52 01/07/2001/07/2025 CMP14 (REFL EX HGB A1C) protein, total 7.5 g/dL 6.0-8. 5 normal Not Available [facility] ([facility]) [address] [place], [address], 01/07/2025 08:07:52 01/07/2001/07/2025 CMP14 (REFL EX HGB A1C) albumin 4.6 g/dL 3.9-4. 9 normal Not Available [facility] ([facility]) [address] [place], [address], 01/07/2025 08:07:52 01/07/2001/07/2025 CMP14 (REFL EX HGB A1C) globulin, total 2.9 g/dL 1.5-4. 5 Not Available [facility] ([facility]) [address] [place], [address], 01/07/2025 08:07:52 01/07/2001/07/2025 CMP14 (REFL EX HGB A1C) bilirubin, total 0.6 mg/dL 0.0-1. 2 normal Not Available [facility] ([facility]) [address] [place], [address], 01/07/2025 08:07:52 01/07/2001/07/2025 CMP14 (REFL EX HGB [...] 129 48 - 129 Not Available [facility] ([facility]) [address] [place], [address], 01/07/2025 08:07:52 01/07/2001/07/2025 CMP14 (REFL EX HGB A1C) AST (SGOT) 18 IU/L 0-40 normal Not Available [facility] ([facility]) [address] [place], [address], 01/07/2025 08:07:52 01/07/2001/07/2025 CMP14 (REFL EX HGB A1C) ALT (SGPT) 17 IU/L 0-44 normal Not Available [facility] ([facility]) [address] [place], [address], 01/07/2025 08:07:52 01/07/2001/07/2025 CBC WITH DIFFE RENTI AL/PL ATELE T WBC 6.4 x10e3 /uL 3.4-10 .8 normal Not Available [facility] ([facility]) [address] [place], [address], 01/07/2025 08:07:53 01/07/2001/07/2025 CBC WITH DIFFE RENTI AL/PL ATELE T RBC 4.83 x10e6 /uL 4.14-5 .80 normal Not Available [facility] ([facility]) [address] [place], [address], 01/07/2025 08:07:53 01/07/2001/07/2025 CBC WITH DIFFE RENTI AL/PL ATELE T hemoglobin 14.9 g/dL 13.0-1 7.7 normal Not Available [facility] ([facility]) [address] [place], [address], 01/07/2025 08:07:53 01/07/2001/07/2025 CBC WITH DIFFE RENTI AL/PL ATELE T hematocrit 44.7 % 37.5-5 1.0 normal Not Available [facility] ([facility]) [address] [place], [address], 01/07/2025 08:07:53 01/07/2001/07/2025 CBC WITH DIFFE RENTI AL/PL ATELE T MCV 93 fL 79-97 normal Not Available [facility] ([facility]) [address] [place], [address], 01/07/2025 08:07:53 01/07/20 25 01/07/2025 CBC WITH DIFFE RENTI AL/PL ATELE T MCH 30.8 pg 26.6-3 3.0 normal Not Available [facility] ([facility]) [address] [facility], [place], [address], 01/07/2025 08:07:53 01/07/2001/07/2025 CBC WITH DIFFE RENTI AL/PL ATELE T MCHC 33.3 g/dL 31.5-3 5.7 normal Not Available [facility] ([facility]) [address] [place], [address], 01/07/2025 08:07:53 01/07/2001/07/2025 CBC WITH DIFFE RENTI AL/PL ATELE T RDW 13.1 % 11.6-1 5.4 Not Available [facility] ([facility]) [address] [facility], [place], [address], 01/07/2025 08:07:53 01/07/2001/07/2025 CBC WITH DIFFE RENTI AL/PL ATELE T platelets 239 x10e3 /uL 150-45 0 normal Not Available [facility] ([facility]) [address] [place], [address], 01/07/2025 08:07:53 01/07/2001/07/2025 CBC WITH DIFFE RENTI AL/PL ATELE T neutrophils 70 % not estab. normal Not Available [facility] ([facility]) [address] [place], [address], 01/07/2025 08:07:53 01/07/20 25 01/07/2025 CBC WITH DIFFE RENTI AL/PL ATELE T lymphs 22 % not estab. normal Not Available [facility] ([facility]) [address] [place], [address], 01/07/2025 08:07:53 01/07/20 25 01/07/2025 CBC WITH DIFFE RENTI AL/PL ATELE T monocytes 7 % not estab. normal Not Available [facility] ([facility]) [address] [facility], [place], [address], 01/07/2025 08:07:53 01/07/2001/07/2025 CBC WITH DIFFE RENTI AL/PL ATELE T eos 1 % not estab. normal Not Available [facility] ([facility]) [address] [facility], [place], [address], 01/07/2025 08:07:53 01/07/2001/07/2025 CBC WITH DIFFE RENTI AL/PL ATELE T basos 0 % not estab. normal Not Available [facility] ([facility]) [address] [facility], [place], [address], 01/07/2025 08:07:53 01/07/2001/07/2025 CBC WITH DIFFE RENTI AL/PL ATELE T immature cells VEHICLE MAINTENANCE TECHNICIAN Not Available [facility] ([facility]) [address] [place], [address], 01/07/2025 08:07:53 01/07/2001/07/2025 CBC WITH DIFFE RENTI AL/PL ATELE T neutrophils (absolute) 4.5 x10e3 /uL 1.4-7. 0 normal Not Available [facility] ([facility]) [address] [place], [address], 01/07/2025 08:07:53 01/07/2001/07/2025 CBC WITH DIFFE RENTI AL/PL ATELE T lymphs (absolute) 1.4 x10e3 /uL 0.7-3. 1 normal Not Available [facility] ([facility]) [address] [place], [address], 01/07/2025 08:07:53 01/07/20 25 01/07/2025 CBC WITH DIFFE RENTI AL/PL ATELE T monocytes(ab solute) 0.5 x10e3 /uL 0.1-0. 9 normal Not Available [facility] ([facility]) [address] [facility], [place], [address], 01/07/2025 08:07:53 01/07/2001/07/2025 CBC WITH DIFFE RENTI AL/PL ATELE T eos (absolute) 0.1 x10e3 /uL 0.0-0. 4 normal Not Available [facility] ([facility]) [address] [facility], [place], [address], 01/07/2025 08:07:53 01/07/2001/07/2025 CBC WITH DIFFE RENTI AL/PL ATELE T baso (absolute) 0.0 x10e3 /uL 0.0-0. 2 normal Not Available [facility] ([facility]) [address] [facility], [place], [address], 01/07/2025 08:07:53 01/07/2001/07/2025 CBC WITH DIFFE RENTI AL/PL ATELE T immature granulocytes 0 % not estab. Not Available [facility] ([facility]) [address] [facility], [place], [address], 01/07/2025 08:07:53 01/07/2001/07/2025 CBC WITH DIFFE RENTI AL/PL ATELE T immature grans (abs) 0.0 x10e3 /uL 0.0-0. 1 Not Available [facility] ([facility]) [address] [facility], [place], [address], 01/07/2025 08:07:53 01/07/2001/07/2025 CBC WITH DIFFE RENTI AL/PL ATELE T NRBC VEHICLE MAINTENANCE TECHNICIAN Not Available [facility] ([facility]) [address] [facility], [place], [address], 01/07/2025 08:07:53 01/07/20 25 01/07/2025 CBC WITH DIFFE RENTI AL/PL ATELE T hematology comments: VEHICLE MAINTENANCE TECHNICIAN Not Available [facility] ([facility]) [address] [facility], [place], [address], 01/07/2025 08:07:53 01/07/20 25 01/07/2025 LIPID PANEL cholesterol, total 205 mg/dL 100-19 9 above high normal Not Available [facility] ([facility]) [address] [place], [address], 01/07/2025 08:07:54 01/07/2001/07/2025 LIPID PANEL triglyceride s 101 mg/dL 0-149 normal Not Available [facility] ([facility]) [address] [facility], [place], [address], 01/07/2025 08:07:54 01/07/2001/07/2025 LIPID PANEL HDL cholesterol 41 mg/dL >39 normal Not Available [facility]) [address] [place], [address], 01/07/2025 08:07:54 01/07/20 25 01/07/2025 LIPID PANEL VLDL cholesterol hayley 18 mg/dL 5-40 Not Available [facility]) [address] [place], [address], 01/07/2025 08:07:54 01/07/2001/07/2025 LIPID PANEL LDL chol calc ([facility]) 146 mg/dL 0-99 above high normal Not Available [facility] ([facility]) [address] [place], [address], 01/07/2025 08:07:54 01/07/20 25 01/07/2025 LIPID PANEL LDL calc comment: VEHICLE MAINTENANCE TECHNICIAN Not Available [facility] ([facility]) [address] [place], [address], 01/07/2025 08:07:54 01/07/2001/07/2025 TSH+F REE T4 TSH 5.520 uIU/m L 0.450- 4.500 above high normal Not Available [facility] ([facility]) [address] [facility], [place], [address], 01/07/2025 10:06:16 01/07/2001/07/2025 TSH+F REE T4 T4,free(dire ct) 1.01 NG/dL 0.82-1 .77 normal Not Available [facility] ([facility]) [address] [facility], [place], [address], 01/07/2025 10:06:16 01/07/2001/06/2025 PSA TOTAL (REFL EX TO FREE) reflex criteria Commen t The perce nt free PSA is perfo rmed on a refle x basis only when the total PSA is betwe en 4.0 and 10.0 ng/mL . Not Available [facility] ([facility]) [address] [facility], [place], [address], 01/07/2025 10:06:17 01/07/2001/07/2025 PSA TOTAL (REFL EX [...] t be inter prete d as absol andreafski evide nce of the prese nce or absen ce of adrienne avery disea se. Not Available [facility] ([facility]) [address] [facility], [place], [address], 01/07/2025 10:06:17 01/07/2001/07/2025 THYRO GLOBU SUNDEEP ANTIB ADRIENNE thyroglobuli n antibody 55.3 IU/mL 0.0-0. 9 above high normal Thyro globu sundeep Antib adrienne measu red by Annel cramer Coult er Metho dolog y It shoul [...] to 4 IU/mL . Not Available [facility] ([facility]) [address] [facility], [place], [address], 01/07/2025 10:06:17 01/07/20 25 01/08/2025 THYRO ID PEROX IDASE (TPO) AB thyroid peroxidase (tpo) Ab >600 IU/mL 0-34 above high normal Not Available [facility] ([facility]) [address] [facility], [place], [address], 01/08/2025 08:07:57 01/07/2001/07/2025 MUKUL EN AUTHO RIZAT ION written authorizatio n Dioni King en Autho rizat ion Recei jero. Autho rizat ion recei jero from [facility] MICHELLE HERRERA for Link Reque st on 01-07 Logge d by Roderick Bunch Not Available [facility] ([facility]) [address] [facility], [place], [address], 01/08/2025 08:07:57 01/27/20 25 01/25/2025 XR, hip, unila teral , 2 or 3 view AP and frog-l eg latera l view of the right hip dated 2024. No prior studie s are availa ble. Correl ation is made with a pelvis study from r 2021. HISTOR Y: Right hip pain. FINDIN GS: This examin ation shows no eviden ce of fractu re or disloc ation. There is some subcho ndral sclero sis in the hip joint. Minima l osteop hytes are noted as well. IMPRES BRAD: Mild degene rative change s. No eviden ce of fractu re or disloc ation. Examin ation [id number]. Thank you for allowi ng me to partic ipate in the care of this patien t. WSN: [id number] Orderi ng Physic portia: Jimmy Jordan Dictat ed By: Christian Rodriguez MD Dictat ed Date/T ivania: 4:40 pm Review ed By: Chirstian Rodriguez MD Signed By: Christian Rodriguez MD Signed Date/T ivania: 4:40 pm Transc ribed By: GODRY Transc ribed Date/T ivania: 4:40 pm Patien t Class: Outpat ient [facility] ([facility]) [address] [facility], [place], [address], 01/26/2025 19:11:52 01/27/2001/25/2025 XR, lumba r spine Lumbos acral spine [...] fractu re or disloc ation. Examin ation [id number]. Thank you for daisyi bandar me to partic ipate in the care of this patien t. WSN: [id number] Orderi ng Physic portia: Jimmy Jordan Dictat ed By: Christian Rodriguez MD Dictat ed Date/T ivania: 4:41 pm Review ed By: Christian Rodriguez MD Signed By: Christian Rodriguez MD Signed Date/T ivania: 4:41 pm Transc ribed By: GORDY Transc ribed Date/T ivania: 4:41 pm Patien t Class: Outpat ient [facility] ([facility]) [address] [place], [address], 01/26/2025 19:11:52 Result Notes Documentation Provider Name and Address Organization Details Recorded Time Xr, Hip, Unilateral, 2 Or 3 View : AP and frog-leg lateral view of the right hip dated January 17, 2025. No prior studies are available. Correlation is made with a pelvis study from February 25, 2022. HISTORY: Right hip pain. FINDINGS: This examination shows no evidence of fracture or dislocation. There is some subchondral sclerosis in the hip joint. Minimal osteophytes are noted as well. IMPRESSION: Mild degenerative changes. No evidence of fracture or dislocation. Examination [id number]. Thank you for allowing me to participate in the care of this patient. WSN: [id number] Ordering Physician: Rebel Jordan Dictated By: Christian Rodriguez MD Dictated Date/Time: 01/26/25 4:40 pm Reviewed By: Christian Rodriguez MD Signed By: Christian Rodriguez MD Signed Date/Time: 01/26/25 4:40 pm Transcribed By: GORDY Transcribed Date/Time: 01/26/25 4:40 pm Patient Class: Outpatient Rebel Jordan PA-C [address] [facility] [address] [place] [address], [address], [facility] 01/26/2025 17:40:02 Xr, Lumbar Spine : Lumbosacral spine 3 views dated January 25, 2025. No prior studies are available. HISTORY: Pain. FINDINGS: The vertebral bodies are normal in height. Intervertebral disc spaces are fairly well-preserved. Minimal endplate osteophytes are noted. IMPRESSION: Minimal degenerative changes. No evidence of fracture or dislocation. Examination 83069. Thank you for allowing me to participate in the care of this patient. WSN: [id number] Ordering Physician: Rebel Jordan Dictated By: Christian Rodriguez MD Dictated Date/Time: 01/26/25 4:41 pm Reviewed By: Christian Rodriguez MD Signed By: Christian Rodriguez MD Signed Date/Time: 01/26/25 4:41 pm Transcribed By: GORDY Transcribed Date/Time: 01/26/25 4:41 pm Patient Class: Outpatient Rebel Jordan PA-C [address] [facility] [address], [place], [address], [facility] 01/26/2025 17:40:02 Problems Name Problem SNOMED Code Status Onset Date Resolution Date Notes Provider Name and Address Organization Details Recorded Time Anxiety state 519394783 Active Not Available [facility] 2 12:56:36 Patient status finding [id number] Completed 04/03/2016 KWAKU Velazquez, [facility] 6 09:38:58 Congenit al insuffic iency of aortic valve 77108816 Active Not Available [facility] 2 12:56:36 Screenin g for malignan t neoplasm of colon Completed 04/03/2016 KWAKU Velazquez, [facility] 6 09:39:07 Follow-u p encounte r Completed 04/03/2016 KWAKU Velazquez, [facility] 6 09:39:11 Malaise and fatigue 183494439 Completed 04/03/2016 KWAKU Velazquez, [facility] 6 09:39:04 Hyperlip idemia 62531469 Active Not Available [facility] 2 12:56:36 Irritabl e bowel syndrome 03873595 Completed 04/25/2023 Allie Herrera MD [address] [facility] [address], [place], [address] , [facility] 3 11:24:49 Major depressi on single episode, in partial remissio n 79636317 Active Not Available [facility] 2 12:56:36 Adult health examinat ion Completed 04/03/2016 KWAKU Velazquez, [facility] 6 09:39:01 Administ ration of diphther ia and tetanus vaccine Completed 02/19/2017 KWAKU Velazquez, [facility] 7 13:33:57 Low back pain 747930774 Completed 02/21/2022 Allie Herrera MD [address] [address], [place], [address] , [facility] 2 11:35:32 Tinea corporis 94550693 Completed 02/21/2022 Allie Herrera MD [address] [address], [place], [address] , [facility] 2 11:35:53 Lower abdomina l pain 83639616 Completed 02/19/2017 KWAKU Velazquez, [facility] 7 13:33:48 Disorder of lumbar disc 908741432 Active Not Available [facility] 2 12:56:36 Tinnitus 19376845 Completed 04/03/2016 KWAKU Velazquez, [facility] 6 09:39:20 Cyst of epididym is 10346031 Completed 04/26/2018 David Cisse MD [address] [facility] [address], [place], [address] , [facility] 8 11:47:37 Swallowi ng painful 88014333 Completed 04/03/2016 KWAKU Velazquez, [facility] 6 09:39:15 Fatigue 91469298 Completed 04/03/2016 KWAKU Velazquez, [facility] 6 09:39:25 Bilatera l trochant jon bursitis [id number] 638954 Active KWAKU Velazquez, [facility] 5 14:07:34 Interver tebral disc prolapse 96495153 Active L5-S1 Herson KWAKU Riley, [facility] 5 14:12:52 Anemia 868643890 Completed 201211/11/2013 RECORDED 06/19/19 13 9:14AM BY WASHINGTON BARNETT MA, ANNOTATI ON/ADDEN DUM Not Available [facility] 4 14:39:31 Anxiety state 676017227 Completed 201211/11/2013 IMPRESSI ON: FOLLOWED BY PSYCH; RECORDED 06/19/19 13 9:14AM BY WASHINGTON BARNETT MA, ANNOTMARIA G ON/ADDEN DUM Not Available [facility] 4 14:39:31 Congenit al insuffic iency of aortic valve 34088124 Completed 201211/11/2013 RECORDED 06/19/19 13 9:14AM BY WASHINGTON BARNETT MA, ANNOTATI ON/ADDEN DUM Not Available [facility] 4 14:39:32 Pneumoni a 253742346 Completed 201211/11/2013 RECORDED 06/19/19 13 9:14AM BY WASHINGTON BARNETT MA, ANNOTATI ON/ADDEN DUM Not Available [facility] 4 14:39:32 Irritabl e bowel syndrome 79421618 Completed 201211/11/2013 RECORDED 06/19/19 13 9:14AM BY WASHINGTON BARNETT MA, MAVIS ON/ADDEN DUM Allie Herrera MD [address] [facility] [address], [place], [address] , [facility] 3 11:24:49 Lateral epicondy litis 462650196 Completed 201211/11/2013 RECORDED 06/19/19 13 9:14AM BY WASHINGTON BARNETT MA, ANNOTATI ON/ADDEN DUM Not Available [facility] 4 14:39:32 Adult health examinat ion Completed 201211/11/2013 RECORDED 06/19/19 13 9:14AM BY WASHINGTON BARNETT MA, ANNOTATI ON/ADDEN DUM Herson Ferrari-KWAKU Delaney MA [facility] 6 09:39:01 Anemia [id number] Completed 201212/04/2013 RECORDED 06/19/19 13 9:14AM BY WASHINGTON BARNETT MA, ANNOTATI ON/ADDEN DUM Not Available [facility] 4 12:53:34 Pneumoni a 478411422 Completed 201212/04/2013 RECORDED 06/19/19 13 9:14AM BY WASHINGTON BARNETT MA, ANNOTATI ON/ADDEN DUM Not Available [facility] 4 12:53:35 Lateral epicondy litis 087351909 Completed 201212/04/2013 RECORDED 06/19/19 13 9:14AM BY WASHINGTON BARNETT MA, ANNOTATI ON/ADDEN DUM Not Available [facility] 4 12:53:35 Anemia 586846891 Completed 201212/05/2013 RECORDED 06/19/19 13 9:14AM BY WASHINGTON BARNETT MA, ANNOTATI ON/ADDEN DUM Not Available [facility] 4 03:48:35 Pneumoni a 801379865 Completed 201212/05/2013 RECORDED 06/19/19 13 9:14AM BY WASHINGTON BARNETT MA, ANNOTATI ON/ADDEN DUM Not Available [facility] 4 03:48:35 Lateral epicondy litis 406141543 Completed 201212/05/2013 RECORDED 06/19/19 13 9:14AM BY WASHINGTON BARNETT MA, ANNOTATI ON/ADDEN DUM Not Available [facility] 4 03:48:35 Acute upper respirat ory infectio n 91355675 Completed 201211/11/2013 IMPRESSI ON: LUNGS CLEAR TODAY AND AFEBRILE , RECOMMEN D SUPPORTI VE TX, WILL CALL BACK FOR CXR IF NOT IMPROVIN G OR WORSENIN G.; RECORDED 07/30/19 13 12:56PM BY HERSON GUERRERO MA, ANNOTATI ON/ADDEN DUM Not Available [facility] 4 14:39:33 Acute upper respirat ory infectio n 83992569 Completed 201212/04/2013 IMPRESSI ON: LUNGS CLEAR TODAY AND AFEBRILE , RECOMMEN D SUPPORTI VE TX, WILL CALL BACK FOR CXR IF NOT IMPROVIN G OR WORSENIN G.; RECORDED 07/30/19 13 12:56PM BY HERSON GUERRERO MA, ANNOTATI ON/ADDEN DUM Not Available [facility] 4 12:53:35 Acute upper respirat ory infectio n 75119412 Completed 201212/05/2013 IMPRESSI ON: LUNGS CLEAR TODAY AND AFEBRILE , RECOMMEN D SUPPORTI VE TX, WILL CALL BACK FOR CXR IF NOT IMPROVIN G OR WORSENIN G.; RECORDED 07/30/19 13 12:56PM BY HERSON GUERRERO MA, ANNOTATI ON/ADDEN DUM Not Available [facility] 4 03:48:35 Spinal stenosis of lumbosac ral region 087092152 Active 2013 MRI results Herson porter MA [facility], [facility] 5 14:12:25 Subclini hayley hypothyr oidism 31579703 Completed 201704/26/2023 Allie Herrera MD [address], [place], [address] , [facility] 3 22:00:43 Pain of left shoulder joint 05170314408 981338 Completed 201904/25/2023 Allie Herrera MD [address], [place], [address] , [facility] 3 11:24:52 Decrease d range of shoulder movement 742598945 Active 2019 Not Available [facility] 2 12:56:36 Cervical radiculo kenia 47545576 Completed 202004/25/2023 Allie Herrera MD [address] [facility] [address], [place], [address] , [facility] 3 11:23:11 Lichen planus of tongue 479968095 Active 2021 tongue biopsy 09/2021 Not Available [facility] 2 12:56:36 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 13557672372 9105 Active 2021 Alicia patel, [facility] 2 13:26:36 Environm ental allergy 966689901 Active 2022 Rebel Jordan PA-C [address] [address], [place], [address] , [facility] 3 11:51:39 History of actinic keratosi s 18233916689 04 Active 2022 Allie Herrera MD [address] [address], [place], [address] , [facility] 3 22:03:25 Chronic low back pain 545492062 Active 2023 Girish Herrera MD [address] [address], [place], [address] , [facility] 4 09:14:03 Osteoart hritis of right hip joint 05710053835 9107 Active 2023 COURTNEY Kelley [address] [address], [place], [address] , [facility] 4 09:51:59 Problem Notes None recorded. Procedures Surgical History Date Name Laterality Status Provider Name and Address Organization Details Recorded Time 05/10/19 23 excision of benign lesion of trunk completed Herson calderon MA [facility] 07/03/2022 09:19:53 07/11/19 19 Colonoscopy completed Chinyere Chavez [facility] 07/10/2018 15:39:14 07/07/19 18 Chronic Pain Assessment completed Herson Ferrari-Ben os, KWAKU [facility] 07/06/2017 11:45:57 12/23/19 17 Chronic Pain Assessment completed Herson Ferrari-Ben os, KWAKU [facility] 12/22/2016 09:36:59 08/18/19 17 Chronic Pain Assessment completed Herson Ferrari-Ben os, [facility] 08/17/2016 13:37:09 08/12/19 16 Echo Transthoracic completed Herson Ferrari-Ben yumiko, [facility] 08/14/2015 10:38:23 04/30/18 92 Repair nasal septum defect completed Herson Ferrari-Ben calderon, [facility] 06/07/2015 13:33:55 04/30/18 68 Tonsillectomy completed Stephanie Bey [facility] 09/13/2020 13:06:03 Imaging Results None recorded. Procedure Notes None recorded. Medical Equipment None Reported. Allergies Allergen ID Allergen Name Allergen Category Reaction Reaction Severity Criticality Documentation Date Start Date Code Code System Note Provider Name and Address Organization Details Recorded Time 82927 tramadol medicatio n other Not available Not available 06/16/20142022 48482 RxNorm unabl e to urina te SANTIAGO Albarran [facility] 3 09:13:38 2812 Shellfish (substanc e) food,medi cation other respirato ry distress Not available Not available [facility] 11/11/20131994 69062 9006 SNOMED SANTIAGO Albarran [facility] 3 09:15:13 02387 duloxetin e medicatio n other Not available Not available 01/17/20212022 38117 RxNorm SANTIAGO Albarran [facility] 3 09:12:46 Medications Name Sig Start [...] 07/14 completed RECORDED 07/26/19 12 1:22PM BY DEMETRIA VOSS PA-C, MEDICATI ON AUTO-MANJU CTIVATIO N; [...] 06/26 completed RECORDED 07/30/19 13 12:56PM BY DEMETRIA VOSS PA-C, MEDICATI ON AUTO-MANJU CTIVATIO N; [...] Available Not Available Not Available Fluzone Quad 2017-(P F) 60 mcg(15 mcgx4)/0. 5 mL intramusc [...] Updated DateTime 5 183.01 cm 24.9 kg/m2 78370 g 90 /min 98 % 98.2 [degF] 107/63 mm[Hg] Herson dubois MA [facility] 5 13:38:53 Date Recorded Body height Body mass index (BMI) Body weight Heart rate Oxygen saturation Body temperature Systolic And Diastolic Provider Name and Address Organization Details Last Updated DateTime 5 183.01 cm 24.8 kg/m2 17370.4 g 106 /min 98 % 97.7 [degF] 122/68 mm[Hg] Herson dubois MA [facility] 5 13:18:33 Date Recorded Body height Body mass index (BMI) Body weight Heart rate Oxygen saturation Body temperature Systolic And Diastolic Provider Name and Address Organization Details Last Updated DateTime 5 183.01 cm 24.8 kg/m2 51697.4 g 96 /min 99 % 98.4 [degF] 135/79 mm[Hg] Demetria Francis MA [facility] 5 13:26:52 Date Recorded Body height Body mass index (BMI) Body weight Heart rate Oxygen saturation Body temperature Systolic And Diastolic Provider Name and Address Organization Details Last Updated DateTime 4 183.01 cm 24.9 kg/m2 36442 g 96 /min 95 % 98.3 [degF] 130/81 mm[Hg] Demetria Phillipfer Francis MA [facility] 4 09:48:36 Social History Question Answer Notes LastModified by Organizat ion Details LastModified Time Tobacco Smoking Status Former Smoker Stephanie Bey MA [facility] 09/13/2020 13:05:45 Do You Have An Advance [...] 06/07/2015 When Did You Quit Smoking? 16+yearssince jason [email or web address] Information not available 09/13/2020 Live Alone Or With Others? With Others (Robert) And Yafccm-ur-ma w, Brother Brant And Chris anu Information not available 04/25/2023 Do You Take [...] Or Greater Than 100 Degrees Fahrenheit? No [email or web address] Information not available 11/24/2019 Are You Or Anyone In Your Household A Health Care Provider Or Emergency Responder? No [email or web address] Information not available 11/24/2019 To The Best Of Your Knowledge Have You Been In Close Proximity To Any Individual Who Tested Positive For COVID-19? No [email or web address] Information not available 11/24/2019 Have You Recently Traveled To A COVID-19 High Risk Area Or Gathering In The Last 10 Days? No [email or web address] Information not available 09/13/2020 What Was The Date Of Your Most Recent Tobacco Screening? 01/06/2025 Information not available 01/06/2025 How Many Children Do You Have? 3 Son And 2 Daughters Information not available 06/07/2015 What Is Your Current Pack Years? 10packyears [email or web address] Information not available 03/17/2022 Do You Use Protection During Sex? Always [email or web address] Information not available 09/13/2020 Do You Use Your Seat Belt Or Car Seat Routinely? Yes Information not available 02/21/2022 Seat Belts Used Routinely Yes [email or web address] Information not available 03/17/2022 Are You Sexually Active? Yes Information not available 06/07/2015 Smoke Alarm In Home Yes [email or web address] Information not available 03/17/2022 Do You Have Smoke And Carbon Monoxide Detectors In Your Home? Yes Information not available 02/21/2022 At What Age Did You Start Smoking Tobacco? 19 [email or web address] Information not available 09/13/2020 Are You Passively Exposed To Smoke? No Information not available 06/07/2015 How Much Tobacco Do You Smoke? 1 PPW Information not available 02/21/2022 Do You Use Sunscreen Routinely? Yes [email or web address] Information not available 09/13/2020 How Many Years Have You Smoked Tobacco? 1 Information not available 02/21/2022 Sex: Unknown Functional Status Question Answer Note LastModified by Organizat ion Details LastModified Time Do you use any illicit or recreational drugs? No [email or web address] Information not available 03/17/2022 Do you or have you ever used any other forms of tobacco or nicotine? No [email or web address] Information not available 03/17/2022 What is your level of alcohol consumption? None Information not available 06/07/2015 Do you or have you ever used smokeless tobacco? Never used smokeless tobacco Information not available 08/13/2019 Are you currently employed? Yes Information not available 06/07/2015 Are you able to walk independently without assistance or assistive devices? YESWOREST [email or web address] Information not available 03/17/2022 Are you able to care for yourself independently? 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 Never used electronic cigarettes [email or web address] Information not available 03/17/2022 What is your exercise level? None afraid to return to the gym Information not available 02/21/2022 Mental Status None recorded. Family History Relationship Description Onset Age of this Age Resolved Age Notes LastModified by Organization Details LastModified Time Mother Hyperchjohn hernandez Not available 2015 15:09:41 Father Essential hypertension 84 [email or web address] Not available 11:31:49 Father Chronic deafness [email or web address] Not available 03/17 11:31:49 Father Hypercholesgarry hornuth Not available 2015 15:09:41 Father Carcinoma in situ of skin [email or web address] Not available 11:31:49 Sister Essential hypertension [email or web address] Not available 11:31:49 Sister Hypothyroidi sm [email or web address] Not available 03/17 11:31:49 Sister Asthma phelmuth Not available 0 12/07/2015 15:09:41 Sister Hypercholest erolemia phelmuth Not available 2015 15:09:41 Daughter Obsessive-co mpulsive disorder 14 [email or web address] Not available 03/17 11:31:49 Daughter Depressive disorder 14 [email or web address] Not available 01/17/2021 11:30:36 Medical History Condition Response Anxiety Disorder Y Heart Problems Y Arthritis Y Depression Y Chicken Pox Y Allergies Y Acne Y Immunizations Vaccine Type Date Status Note Provider Nam e and Address Organization Details Recorded Time Influenza, split virus, trivalent, preservative 7 completed Not Available [facility] 05/25/2023 08:37:50 Influenza, adjuvanted, trivalent, PF 8 completed Not Available [facility] 05/25/2023 08:37:50 varicella 8 completed Not Available [facility] 01/22/2023 10:46:03 Influenza, split virus, trivalent, preservative 9 completed Not Available [facility] 05/25/2023 08:37:50 Influenza, split virus, trivalent, preservative 0 completed Not Available [facility] 01/22/2023 10:46:03 COVID-19, mRNA, LNP-S, PF, 30 mcg/0.3 mL dose 1 completed Not Available [facility] 01/22/2023 10:46:03 COVID-19, mRNA, LNP-S, PF, 30 mcg/0.3 mL dose 1 completed Not Available [facility] 01/22/2023 10:46:03 COVID-19, mRNA, LNP-S, bivalent, PF, 30 mcg/0.3 mL dose 2 completed Not Available [facility] 01/22/2023 10:46:03 Influenza, MDCK, quadrivalent, PF 1 completed Not Available [facility] 01/22/2023 10:46:03 Influenza, split virus, quadrivalent, PF 8 completed Not Available [facility] 01/22/2023 10:46:04 Influenza, MDCK, quadrivalent, PF 2 completed Not Available [facility] 01/22/2023 10:46:03 Influenza, split virus, quadrivalent, PF 9 completed Not Available [facility] 01/22/2023 10:46:04 zoster recombinant 8 completed Not Available [facility] 01/22/2023 10:46:03 Influenza, MDCK, quadrivalent, PF 7 completed Not Available [facility] 01/22/2023 10:46:03 zoster recombinant 8 completed Not Available [facility] 01/22/2023 10:46:03 Influenza, split virus, trivalent, preservative 1 completed Not Available [facility] 01/22/2023 10:46:04 COVID-19, mRNA, LNP-S, PF, 30 mcg/0.3 mL dose, olivier-sucrose 2 completed Not Available [facility] 01/22/2023 10:46:03 COVID-19, mRNA, LNP-S, PF, 30 mcg/0.3 mL dose 1 completed Not Available [facility] 01/22/2023 10:46:03 Influenza, split virus, quadrivalent, PF 5 completed Not Available [facility] 01/22/2023 10:46:04 Influenza, split virus, trivalent, preservative 4 completed Not Available [facility] 01/22/2023 10:46:03 RSV, recombinant, protein subunit RSVpreF, adjuvant reconstituted, 0.5 mL, PF 3 completed KWAKU Castellanos, [facility] 04/25/2023 10:40:19 Influenza, MDCK, quadrivalent, PF 3 completed KWAKU Castellanos [facility] 04/25/2023 10:54:18 COVID-19, mRNA, LNP-S, PF, olivier-sucrose, 30 mcg/0.3 mL 3 completed KWAKU Castellanos [facility] 04/25/2023 10:54:18 COVID-19, mRNA, LNP-S, PF, olivier-sucrose, 30 mcg/0.3 mL 4 completed KWAKU Castellanos, [facility] 02/15/2024 09:35:55 Influenza, split virus, trivalent, PF 4 [facility] 09:35:55 Pneumococcal conjugate PCV20, polysaccharide ALH751 conjugate, adjuvant, PF 4 completed Not Available [facility] 01/28/2025 13:13:42 COVID-19, mRNA, LNP-S, PF, olivier-sucrose, 30 mcg/0.3 mL 5 completed Not Available [facility] 01/28/2025 13:13:42 Influenza, split virus, trivalent, preservative 9 completed Not Available [facility] 01/22/2023 10:46:04 Influenza, split virus, trivalent, preservative 2 completed Not Available [facility] 01/22/2023 10:46:04 Tdap 3 completed Not Available [facility] 01/22/2023 10:46:03 Influenza, split virus, trivalent, PF 5 completed KWAKU Castellanos, [facility] 01/28/2025 13:28:55 Past Encounters Encounter ID Performer Location Encounter Start Date Encounter Closed Date Diagnosis/Indication Diagnosis SNOMED-CT Code Diagnosis ICD10 Code Diagnosis IMO Codes Diagnosis Note [id number] [facility] [id number] [facility] [facility] [place] [address] 02/03/2009 00:00:00 [id number] [facility] [address] [facility] [facility] [place] [address] 07/05/2011 00:00:00 [id number] [facility] [facility] [address] [facility] [facility] [place] [address] 06/19/2012 00:00:00 [id number] [facility] [facility] [address] [facility] [place] [address] 07/29/2012 00:00:00 [id number] COURTNEY Middleton Main Office [address] [address] [place] [address] 12/11/2013 10:00:27 12/11/2013 10:33:37 Low back pain 658612040 Tinea corporis 78172390 [id number] COURTNEY Middleton Main Office [address] [address] [place] [address] 01/13/2014 08:44:55 01/13/2014 09:23:01 Low back pain 515454496 with radiculopa thy, continue PT [id number] David Cisse MD Main Office [address] [address] [place] [address] 04/01/2014 12:37:32 04/01/2014 13:58:31 Screening for malignant neoplasm of colon 639964030 Lower abdominal pain 43382774 Suprapubic pain [id number] David Cisse MD Main Office [address] [address] [place] [address] 06/16/2014 09:03:07 06/16/2014 10:07:16 Tinnitus 46355857 Osteoarthritis of hip 143563093 [id number] David Cisse MD Main Office [address] [address] [place] [address] 06/07/2015 13:09:08 06/07/2015 13:55:46 Cyst of epididymis 65294312 N50.3 [id number] David Cisse MD Main Office [address] [address] [place] [address] 07/27/2015 11:18:30 07/27/2015 12:22:52 Swallowing painful 06284973 R13.19 Congenital insufficiency of aortic valve 22530168 Q23.1 [id number] David Cisse MD Main Office [address] [address] [place] [address] 12/07/2015 14:20:54 12/07/2015 15:26:53 Adult health examination 401362165 Z00.00 Anxiety state 666170010 F41.1 Major depr ession single episode, in partial remission 90583236 F32.4 Screening for malignant neoplasm of colon 690071873 Z12.11 Osteoarthritis of hip 23 1959068 M16.9 Hyperlipidemia 02678489 E78.0 Fatigue 72071802 R53.83 [id number] David Cisse MD Main Office [address] [address] [place] [address] 04/03/2016 09:31:03 04/03/2016 12:11:52 Screening for malignant neoplasm of colon 370505845 Z12.11 Osteoarthritis of hip 23 5536945 M16.9 [id number] David Cisse MD Main Office [address] [address] [place] [address] 08/17/2016 13:19:47 08/17/2016 14:17:26 Osteoarthritis of hip 037533257 M16.0 [id number] David Cisse MD Main Office [address] [address] 12/22/2016 09:08:47 12/22/2016 11:04:56 Low back pain 539278981 M54.5 Osteoarthritis of hip 23 0908126 M16.0 Fatigue 77340166 R53.83 [id number] David Cisse MD Main Office [address] [address] 02/19/2017 13:27:06 02/19/2017 14:28:35 Adult health examination 749237600 Z00.00 Hyperlipidemia 34802114 E78.01 Osteoarthritis of hip 23 0389191 M16.0 Screening for malignant neoplasm of colon 010271627 Z12.11 Major depr ession single episode, in partial remission 84527709 F32.4 Followed by psychiatry Congenital insufficiency of aortic valve 30792188 Q23.1 Bicuspid valve. followed by [facility] cardiology [id number] David Cisse MD Main Office [address] [address] 07/06/2017 11:19:51 07/06/2017 12:36:16 Tinnitus 35140175 H93.12 Major depr ession single episode, in partial remission 19200281 F32.4 Followed by psychiatry Osteoarthritis of hip 23 2321724 M16.0 [id number] David Cisse MD Main Office [address] [address] [place] [address] 04/26/2018 10:36:28 04/26/2018 12:08:48 Hepatitis C screening 332681689 Z11.59 Screening for malignant neoplasm of colon 734658805 Z12.11 Adult heal th examination 088757511 Z00.00 Major depr ession single episode, in partial remission 52720800 F32.4 Followed by psychiatry Osteoarthritis of hip 23 3966279 M16.0 Low back pain 402492216 M54.5 Congenital insufficiency of aortic valve 62722896 Q23.1 Bicuspid valve. followed by [facility] Hyperlipidemia 12560595 E78.5 Fatigue 00886306 R53.83 Subclinica l hypothyroidism 82656504 E03.9 [id number] Girish Herrera MD Main Office [address] [place] [address] 08/13/2019 14:09:33 08/14/2019 11:18:03 Dyspnea 883805047 R06.00 Cough 59887479 R05 advised pt to call us if dev f/c, or worsening of cough/sob - would give empiric zpak at that time to try to keep pt out of the hospital Congenital insufficiency of aortic valve 45517542 Q23.1 stable, cont f/u c card Suspected COVID-19 41528 4004 Z03.818 cont otc meds (prn tyl, robitussin ) as dir, cont self-isola tion - reviewed guidelines and advised pt to check our website and will send to portal advised pt only to go to ER if significan t sob where may need to be admitted, o/w avoid going to hospital if at all possible [id number] David Cisse MD Main Office [address] [facility] [address] [place] [address] 09/08/2019 09:06:30 09/08/2019 16:12:47 Adult health examination 041096590 Z00.00 Osteoarthritis of hip 23 7965558 M16.0 Exposure t o viral disease 6399605555 10954 Z03.818 Only avail. at [facility] *By appt only M-F 8-3:30pm * pt can schedule at # Hyperlipidemia 36818007 E78.5 Fatigue 21650722 R53.83 Major depr ession single episode, in partial remission 29816986 F32.4 Followed by psychiatry Subclinica l hypothyroidism 42264665 E03.9 Congenital insufficiency of aortic valve 12696197 Q23.1 Bicuspid valve. followed by [facility] [id number] Girish Herrera MD Main Office [address] [facility] [address] [place] [address] 11/24/2019 09:40:20 11/24/2019 11:14:33 Pain of left shoulder joint 6648871498 9702948 M25.512 suspect RTC pathology - will get ortho eval stat Decreased range of shoulder movement 502352935 M25.612 see above Impacted c erumen in right ear 6039398189 362914 H61.21 Bilateral tinnitus 36899 84953 102 H93.13 pending see ENT [id number] David Cisse MD Main Office [address] [address] 09/13/2020 12:46:57 09/13/2020 14:25:06 Adult health examination 215527911 Z00.00 Hyperlipidemia 97797095 E78.5 Subclinica l hypothyroidism 00296191 E03.9 Pain of le ft shoulder joint 8808037964 5465213 M25.512 suspect RTC pathology - will get ortho eval stat Lesion of skin of face 1587996524 06 L98.9 Cervical radiculopathy 55474989 M54.12 Congenital insufficiency of aortic valve 17055306 Q23.1 Bicuspid valve. followed by [facility] Osteoarthritis of hip 23 5262668 M16.0 Fatigue 50538597 R53.83 Screening for cardiovascular system disease 707110680 Z13.6 Hyperglycemia 57740891 R 73.9 Major depr ession single episode, in partial remission 64236616 F32.4 Followed by psychiatry [id number] Allie Herrera MD Main Office [address] [place] [address] 01/17/2021 11:15:36 01/17/2021 12:33:26 Anxiety state 022622391 F41.1 We talked about other options such as Remeron, trazodone however prior to starting Luiz wanted me to discuss these options with his psychiatri st. I will have my adjunct faculty for medical terminology reach out to his psychiatri st and see if I can talk to him. Luiz declines any further counseling at this time, he denies any homicidal or suicidal ideation.Terra esparza was also warned the risk of long-term lorazepam use. He tells me he no longer takes duloxetine and he is is only on sertraline 25 mg he said he tried higher dose of sertraline but that did not make him feel right as well. Osteoarthritis of hip 23 6934796 M16.9 Luiz has been getting hydrocodon e 10/acetami nophen 325 he tells me he has been breaking it and taking it as needed when he cannot sleep due to osteoarthr itis of the hip he has been prescribed this by his previous provider regularly . I advised Luiz I will continue at this time however if he continues to need more, we may have to pursue other means as I do not think narcotics is the best option for pain control. I did talk about possible hip injections however Luiz declined at this time. Luiz is on other medication s that can increase sedation he was advised the risk of sedation while taking these medication s including with lorazepam. Luiz understand s to not mix any medication s and to not operate any motor vehicle, or machinery while taking these medication s including drinking alcohol. [id number] Allie Herrera MD Main Office [address] [facility] [address] [place] [address] 02/21/2022 10:28:59 02/21/2022 12:05:41 Anxiety state [id number] F41.1 Being followed by luis looking for new provider denies homicidal or suicidal IdeationNo jeane he would like to find new prescriber , gave him some options (Dr. Barbi ku, call insurance) and referral for him to call. Osteoarthritis of hip 23 [id number] M16.9 Luiz has been getting hydrocodon e 10/acetami nophen 325 he tells me he has been breaking it and taking it as needed when he cannot sleep due to osteoarthr itis of the hip he has been prescribed this by his previous provider regularly .I advised Luiz I will continue at this time however if he continues to need more, we may have to pursue other means as I do not think narcotics is the best option for pain control. I did talk about possible hip injections he is open to seeing orthopedic s and PT and thus a referral was placed.Dayo arauz is on other medication s that can increase sedation he was advised the risk of sedation while taking these medication s including with lorazepam. Luiz understand s to not mix any medication s and to not operate any motor vehicle, or machinery while taking these medication s including drinking alcohol.I will get an XR as symtoms worsen.On exam he was quite tight and thus some PT would be beneficial .Will also get labs. Major depr ession single episode, in partial remission [id number] F32.4 see above. Adult heal th examination 781911604 Z00.00 Patient was counseled on healthy diet, exercise and nutrition due to Body mass index is 24.1 kg/m . Last PSADate:Re sult:Plan: had shared decision patient opted to get PSA. Last Colonoscop y:Date:Res ult:Plan: notes had recent at [facility], will try to get records. Vaccines:T dAP: 07/29/12Zost er rec: 09/06/17, 12/20/17PCV 20: not dueInfluen za: 02/02/22Cov id: 07/23/20, 08/13/20, 01/06/22, 07/31/21, 01/06/22 (Bivalent) Routine labs today Immunizati on status reviewed. Will screen based on risk factors. Regular dental and ophtho care advised as well as seat belt and sunscreen use. Distracted driving discussed. Medication reconciled . Fatigue 81173385 R53.83 Hyperlipidemia 73152753 E78.5 Nocturia 188696094 R35.1 Seborrheic dermatitis 50 653310 L21.9 [id number] Allie Herrera MD Main Office [address] [facility] [address] [place] [address] 03/03/2022 14:50:48 03/03/2022 16:06:23 Osteoarthritis of hip 239361305 M16.0 Luiz has been getting hydrocodon e 10/acetami nophen 325 he tells me he has been breaking it and taking it as needed when he cannot sleep due to osteoarthr itis of the hip he has been prescribed this by his previous provider regularly .I advised Luiz I will continue at this time however if he continues to need more, we may have to pursue other means as I do not think narcotics is the best option for pain control. I did talk about possible hip injections he is open to seeing orthopedic s and PT and thus a referral was placed.Dayo arauz is on other medication s that can increase sedation he was advised the risk of sedation while taking these medication s including with lorazepam. Luiz understand s to not mix any medication s and to not operate any motor vehicle, or machinery while taking these medication s including drinking alcohol.XR did not show acute pathology. Labs unremarkab le.Since he is in a lot of pain and NSAID have not help will do steroid.He will follow up with ortho as well Anxiety state [id number] F41.1 Being followed by luis looking for new provider denies homicidal or suicidal IdeationNo jeane he would like to find new prescriber , gave him some options (lolly garza, Dr. Landon, call insurance) and referral for him to call.He reached out [employer] has group therapy wed with hopes to get with a new prescriber . I told him I would take it on till Apr as long as he works on benzo tito. He will start with 5.5mg tito for 3 months then to cont. every 3 mo.Will consider duloxetine , venlafaxin e, with hydroxyzin e. Elevated blood-pressure reading without diagnosis of hypertension 044601826 R03.0 Likely due to pain and agitation Advised to keep BP daily BP log and technique counseled. Red flags of HTN emergency discussed and when to go to ED.Will follow up BP in 2 weeks [id number] Allie Herrera MD Main Office [address] [facility] [address] [facility] [place] [address] 03/17/2022 11:31:35 03/17/2022 12:22:11 Elevated blood-pressure reading without diagnosis of hypertension 147555239 R03.0 continue intermitte nt bp monitoring at home. [id number] Girish Herrera MD Main Office [address] [facility] [address] [facility] [place] [address] 05/06/2022 10:33:28 05/06/2022 12:16:57 Epidermoid cyst of skin 752277454 L72.3 Refer to surgery for excision in light of discomfort being afforded. See if course of abx helps facilitate drainage. [id number] Allie Herrera MD Main Office [address] [facility] [place] [place] [address] 07/03/2022 09:10:02 07/03/2022 09:45:13 Tinnitus of left ear 0403030195 106 H93.12 Unilateral will get MRI first.He has apt with ent and getting hearing test as well - encouraged to also follow through.Ad vised to follow dental for possible TMJNeuro exam intact. [id number] Allie Herrera MD Main Office [address] [place], [place] [address] 10/04/2022 13:04:05 10/04/2022 13:45:17 Osteoarthritis of hip 165810897 M16.0 Rare use of hydrocodon e 10/acetami nophen 325. Anxiety state 961717024 F41.1 Being followed by luis and has [facility] feels much better since coming off from [facility]. Elevated blood-pressure reading without diagnosis of hypertension 739247544 R03.0 He feels like his blood pressures are very good as he rushed into the visit. He is going to monitor his blood pressure regularly at home and follow-up with his blood pressure in 2 weeks. He is otherwise asymptomat ic.Advised to keep BP daily BP log and technique counseled. Red flags of HTN emergency discussed and when to go to ED.Will follow up BP in 2 weeks Tinnitus of left ear 930 3209754 106 H93.12 Unilateral he did have an audiology exam advised him to follow-up with the ENT given that he cannot tolerate an MRI. He feels like symptoms are much better since his mental health is improved. Bursitis of hip 64284657 M70.71 M70.72 He agreed to try physical therapy to see if this makes a difference . Tachycardia 4362016 R00. 0 Notes he rushed to the visit, is otherwise asymptomat ic. He will monitor home HR. client office EKG today due to time constraint s. He was advised to develop any chest pain, symptomati c palpitatio ns, dizziness/ lightheade dness then to go to the nearest emergency room. I will have him come back at the end of the month to try to get EKG and monitor his blood pressure. 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 [id number] Allie Herrera MD Main Office [address] [facility] [address] [place] [address] 10/25/2022 09:54:33 10/25/2022 11:20:03 Tachycardia 5676160 R00.0 ECG reassuring recent echo and follows cards. Elevated blood-pressure reading without diagnosis of hypertension 871359453 R03.0 BP stable today cont. monitoring prn and lifestyle changes. [id number] Girish Herrera MD Main Office [address] [address] [place] [address] 01/17/2023 14:45:34 01/17/2023 16:08:25 Cervical lymphadenopathy 141055824 R59.0 ? from recent head colds/lalito rgic reactions - see below - vs other - check cbc, cxr, u/s neck for further evaluation Environmental allergy 42 0279383 T78.49XA pending see moss gatherer at [facility] next sunday (Dr Linnette Og) [id number] Girish Herrera MD Main Office [address] [address] [place] [address] 02/01/2023 09:03:01 02/01/2023 09:58:43 Influenza vaccination declined 995838685 Z28.21 Environmental allergy 42 5588954 T78.49XA Saw moss gatherer Dr. Anglin at [facility] on 01/22/23, rec to take daily long acting antihistam ine until scheduled allergy injections on 02/13/23 Cervical lymphadenopathy 214736985 R59.0 Neck pain and lymphadeno kenia has resolved since last visit, encourage to keep neck US appt on 02/02/23 at [facility] - ? thyromegal y, has h/o subclinica l hypothyroi dism [id number] Allie Herrera MD Main Office [address] [address] [place] [address] 04/25/2023 10:36:11 04/25/2023 11:39:59 Adult health examination 267062783 Z00.00 Patient was counseled on healthy diet, exercise and nutrition due to Body mass index is 24.1 kg/m . Last PSADate: 10/25/22Re sult: 1Plan: Pt wanted to hold screening today. Last Colonoscop y:Date: 07/10/18Res ult: no polypsPlan : Per GI screen 10yrs Vaccines:T dAP: script givenZoste r rec: 09/06/17, 12/20/17PCV 20: not dueInfluen za: 02/09/23Co vid: 07/23/20, 08/13/20, 01/06/22, 07/31/21, 01/06/22 (Bivalent) , encourage updated vaccineRSV : 01/20/23 Routine labs today Immunizati on status reviewed. Will screen based on risk factors. Regular dental and ophtho care advised as well as seat belt and sunscreen use. Distracted driving discussed. Medication reconciled . Major depr ession single episode, in partial remission 91328918 F32.4 Advised Luiz to consult with his nurse practition er psychiatri st regarding his mental health concerns, especially those related to his diazepam treatment. Emphasized the importance of not intervenin g in the management plan set by his psychiatri c care provider, particular ly concerning any potential changes to his benzodiaze pine therapy.Fr cleary confirmed he currently has no active thoughts of self-harm or any specific plans in this regard. Provided him with the contact number for a crisis hotline as a precaution , should he experience any distressin g thoughts.A ssured Luiz that I will communicat e with his nurse practition er psychiatri st about his concerns. This coordinati on will help ensure that his care team makes informed decisions about his treatment plan. Fatigue 08857646 R53.83 Hyperlipidemia 87810315 E78.5 Administra tion of viral vaccine 08828777 Z23 [id number] Girish Herrera MD Telehealt h [address] [facility] [address] [facility] [place], [place] [address] 05/25/2023 08:36:35 05/25/2023 09:30:23 Chronic low back pain 960768520 M54.50 Recurrent issue, responsive to short courses of prednisone . History, prior imaging, and correlatin g exacerbati on activities raises suspicion for SIJ mediated pain. Pt advised to call if symptoms change or persist as in office eval/refer ral or further imaging may then be warranted. [id number] Tesfaye Gil MD Main Office [address] [facility] [address] [place] [address] 02/15/2024 09:20:29 02/15/2024 09:56:56 Osteoarthritis of right hip joint 9037785901 89229 M16.11 Patient states this has been an ongoing issue, uses prednisone this time of year which calms the pain down. Declines XR today- (he is in a lujan, his duaghter is in ED as appy r/o) Prednisone burst x 5 days, take med with food, avoid ibuprofen with med. RICE. Anxiety state 008418605 F41.1 [id number] Allie Herrera MD Main Office [address] [facility] [address] [place] [address] 01/06/2025 13:14:19 01/06/2025 14:54:13 Adult health examination 342716431 Z00.00 Patient was counseled on healthy diet, [...] depr ession single episode, in partial remission 29063742 F32.4 Follows Psych for mental Girish Bueno MD Fatigue 83894838 R53.83 R73.01 Hyperlipidemia 21314106 E78.5 Administra tion of viral vaccine 90886953 Z23 Nocturia 861116401 R35.1 [id number] Subclinica l hypothyroidism 09728480 E03.8 90665 [id number] Girish Herrera MD Main Office [address] [facility] [address] [place] [address] 01/22/2025 12:56:34 01/22/2025 14:08:01 Pain of hip region 27612950 M25.551 G89.29 [id number] cont prn Methocarba mol as dir by pcprec stop PT - no sig help recently - will get updated xrays and PMR eval Chronic low back pain 27 7307126 M54.50 G89.29 [id number] Allie Herrera MD Main Office [address] [facility] [address] [place] [address] 01/28/2025 13:08:34 01/28/2025 14:13:41 Hyperlipidemia 61784521 E78.5 00669586 Needs infl uenza immunization 108933944 Z23 19 YEARS AND OLDER ONLY Chronic low back pain 27 2448459 M54.50 G89.29 [id number] Health Concerns Section Related Observation LastModified by Organization Detai ls LastModified Time None Recorded Concern Status LastModified by Organization Details LastModified Time None Recorded Advance Directives Directive Y: Payers Insurance Date Sequence Insurance Name Policy Number Policy Gomez Covered Member ID Gomez Member ID Guarantor Name 02/12/2025 1 [facility] ([facility]) [id number] 23 JoycelynMerkuFarzana [id number] Robert Yanes Notes Date Note Type Note Provider Name and Address Organization Details Recorded Time 05/25/2023 text/html Back PainReporte d by PatientHPIFor quality, patient reportsdull. For severity, patient reportsworsening. For location, patient reportspain is not radiating. For duration, patient reportsintermittentand chronic. For onset/timing, patient reportsrecurrent episode. For context, patient reportsunusual activity (prolonged sitting, sleeping on floor). For associated symptoms, patient reportsno fever,no weak limbs,no numbness of the legs/feet,no tingling,no incontinence, andno shortness of breath.Longstanding recurrent issue, mild arthritis seen on him imaging previously. Pain localized to right iliac crest/paravertebral tissues. Has used short term prednisone several times in the past with good effect/tolerance. Flares 1-3 times/yr. Girish Herrera MD [address] [address], [place], [address], [facility] 05/25/2023 09:20:24 02/15/2024 text/html Back PainReporte d by PatientHPIFor quality, patient reportsdull. For severity, patient reportsworsening. For location, patient reportspain is not radiating. For duration, patient reportsintermittentand chronic. For onset/timing, patient reportsrecurrent episode. For context, patient reportsunusual activity (prolonged sitting, sleeping on floor). For associated symptoms, patient reportsno fever,no weak limbs,no numbness of the legs/feet,no tingling,no incontinence, andno shortness of breath.Long standing recurrent issue, mild arthritis seen on his imaging previously. Pain localized to right iliac crest/paravertebral tissues. Has used short term prednisone several times in the past with good effect/tolerance. Flares every year from january through march due to sitting more for his work. Pain is NOT worse than it normally is, it just flares this time of year, he states this has been ongoing for 10 years and he takes prednisone which helps. COURTNEY Kelley [address] [address], [place], [address], [facility] 02/15/2024 10:08:09 01/06/2025 text/html Generic HPI TemplateReported by PatientROS as noted in the HPI Patient presented for a physical exam. Chronic medications and medical issues, including a bicuspid aortic valve and palpitations, were reviewed. Discussed screening guidelines, fitness, and weight management goals. Allie Herrera MD [address] [address], [place], [address], [facility] 01/21/2025 11:23:06 01/22/2025 text/html Patient c/o right hip pain, [...] pain - ? last seen by [facility]. - does not want to go back to them he is in PT 2x/wk - no recent PT notes to review - but appears he has seen PT > dozen timeslast xray R hip 10., lumbar mri 2013 Rebel Jordan PA-C [address] [address], [place], [address], [facility] 01/25/2025 10:29:41 01/28/2025 text/html Patient presents today to review [...] addressed this issue to a limited extent. Allie Herrera MD [address] [facility] [address], [place], [address], [facility] 01/28/2025 17:19:10
== END 2025-03-19 14:57 | disposition home or self-care (01) ==
LOC: HO.HPHYS 14:05
PROVIDERS: PCP Family Medicine; Visit Provider Physician Assistant
DX: M54.16 Radiculopathy, lumbar region (principal); M47.816 Spondylosis without myelopathy or radiculopathy, lumbar region; M16.11 Unilateral primary osteoarthritis, right hip
CPT/HCPCS: 99204